=== PATIENT | female | born 1945 | race Caucasian/White ===

== ENCOUNTER 2017-02-11 19:55 | Inpatient (IN) | payer OTHER ==
[~2017-02-11] VITALS: Ht 154.9 cm; Wt 72.7 kg
[2017-02-11 21:28] VITALS: BP 152/79; PULSE 87; TEMP 37.1; O2SAT 99; Ht 154.9 cm; Wt 72.7 kg
[2017-02-11] MEDS ORDERED: SOD PHOSPHATE/SOD BIPHOSPHATE ENEMA 132 ML BTL PR PRN (21:45)
[2017-02-11] MEDS ORDERED: BISACODYL 10 MG SUPP PR PRN (21:45)
[2017-02-11] MEDS ORDERED: ACETAMINOPHEN 325 MG TAB PO PRN (21:45)
[2017-02-11] MEDS ORDERED: POLYETHYLENE (MIRALAX) 17 GM PACK PO PRN (21:45)
[2017-02-11] MEDS ORDERED: NALOXONE HCL 0.4 MG/1 ML VIAL/CARP IV PRN (21:45)
[2017-02-11] MEDS ORDERED: HYDROmorphone INJ 0.5 MG/0.5 ML SYR IV PRN (21:45)
[2017-02-11] MEDS ORDERED: ZOLPIDEM TARTRATE 5 MG TAB PO PRN (21:45)
[2017-02-11] MEDS ORDERED: MAGNESIUM HYDROXIDE SUSP 30 ML UDC PO PRN (21:45)
--- NOTE | 2017-02-11 21:45 | History and Physical ---
History & Physical Date & Time of Service: Feb 11, 2017 at 21:45 Chief Complaint: Left Hip Fracture Primary Care Physician: Vincent Escamilla M.D. History of Present Illness Source: patient, family Mrs Hauser is a 77-year-old female who lives in [place], who was transferred here for treatment of a left femur fracture. Earlier today she was lifting a bucket of corn and tripped and fell onto her left side. She had excruciating pain. She was taken to [facility] requested to be taken to [facility] as there are no orthopedic services there. She reports her pain has somewhat improved after pain medications. She denies any chest pain or shortness of breath with exertion. Her only surgery was a cholecystectomy 15 years ago, she denies any complications with that. Past Medical/Surgical History PMHx: None PSHx: Cholecystectomy Family History No pertinent family history. Social History Smoking Status: Never Smoker Smokeless Tobacco Use: No Alcohol Use: none Drug Use: none Marital Status: Housing status: lives with family Occupational Status: retired Immunizations History of Influenza Vaccine: Unknown History of Tetanus Vaccine?: Unknown History of Pneumococcal: Unknown History of Hepatitis B Vaccine: Unknown Multi-Drug Resistant Organisms History of MDRO: No Allergies Coded Allergies: Cephalexin (Verified Allergy, Intermediate, RASH, 02/11/17) Review of Systems See HPI for pertinent positives & negatives. A total of 10 systems reviewed and were otherwise negative. Physical Exam Vital Signs Date Time Temp Pulse Resp B/P (MAP) Pulse Ox O2 Delivery O2 Flow Rate FiO2 02/11/17 21:28 37.1 87 16 152/79 99 Nasal Cannula 2.0 General Appearance: WD/WN, + mild distress Head: normocephalic, atraumatic Eyes: normal inspection ENT: hearing grossly normal Neck: supple, no JVD Respiratory/Chest: lungs clear, normal breath sounds, no respiratory distress Cardiovascular: regular rate, rhythm, no murmur, normal peripheral pulses Abdomen/GI: normal bowel sounds, non tender, soft Back: no CVA tenderness, no muscle spasm Extremities/Musculoskelatal: normal inspection, no pedal edema Neurologic/Psych: alert, normal mood/affect, normal reflexes, oriented x 3 Skin: no rash Diagnostics Laboratory Results Labs pending at this time Diagnostic Radiology We did not receive any images from [place]. Impression Assessment and Plan 71 yo F with reported L subtrochanteric femur fracture, transferred here for Orthopedic surgery services. L femur fracture - Will obtain repeat Xrays as we did not receive any and do not have access to [place] records - Pre op EKG and CXR - NPO after midnight w/IV fluids - Dilaudid for pain - Dr Garcia consulted. - Pre op abx treatment wtih Vanc due to Keflex causing a rash will avoid cephalosporins Pt has no other home medications. VTE: SCDs Code Status: Full DISPO: Admitted to Med/Surg Attending Addendum: I have physically seen and examined this patient, have supervised the medical residents activities, and agree with the H&P as noted above with the following exceptions: NONE The patient is awake, well-developed and adequately nourished, alert and oriented 3, normocephalic and atraumatic, lying in bed and in no acute distress. HEENT--PERRL, EOMI, mucous membranes and oropharynx dry. Neck--supple, no JVD or bruits, thyroid normal, trachea midline, no adenopathy. Heart--normal S1 and S2, no extra beats, no murmurs, rubs or gallops. Lungs--clear bilaterally with good air movement, no respiratory distress, no accessory muscle use. Abdomen--normal bowel sounds and soft, nontender and nondistended, no hernias or masses, no organomegaly. Extremities--no cyanosis, clubbing or edema. There are good distal pulses b/l. Dermatologic--normal skin turgor, normal color, warm and dry, no abnormal lymph nodes, no rash. Neurologic--cranial nerves II through XII grossly intact. Rheumatologic--pain over left hip area Psychiatric--normal affect. Assessment and Plan: 1. Left subtrochanteric hip fracture--status post mechanical fall. The patient be admitted to the medical surgical floor with consult to orthopedics Dr. Garcia. The family would like to minimize any additional x-rays here, and [facility] did not send films along, so family will get the disc from [facility] and bring her to [facility] tomorrow. Preop EKG and chest x-ray for review. Nothing by mouth after midnight. IV fluids for rehydration. Level of Care Med/Surg Advanced Directives Existing Advance Directive: No Existing Living Will: Yes Existing Power of Buildings And Grounds Superintendent: Yes Resuscitation Status FULL RESUSCITATION VTE Prophylaxis VTE Risk Assessment Done? Y/N: Yes Risk Level: Moderate Given or contraindicated: SCD's Social Service Consult None Apply Resident Tracking Resident Involvement: Resident Care Provided Care Provided: Adult Hospital Medicine
[2017-02-11] MEDS: LACTATED RINGER'S 1000ML 1,000 ML IV SCH (22:14)
[2017-02-11] MEDS: HYDROmorphone INJ 0.5 MG/0.5 ML SYR IV PRN ×2 (22:15→23:52)
[2017-02-11 22:35] LABS: HEMATOCRIT 39.7 % (37-47); MEAN CELL VOLUME 86.1 fL (80-100); MEAN CORPUSCULAR HEMOGLOBIN 27.5 pg (25-34); MEAN PLATELET VOLUME 10.1 fL (7.4-10.4); PLATELET COUNT 252 K/uL (130-400); RED BLOOD COUNT 4.61 M/uL (4.2-5.4); WHITE BLOOD COUNT 11.87 K/uL (4.8-10.8)
[2017-02-11 22:50] LABS: PARTIAL THROMBOPLASTIN RATIO 0.8; PROTHROMBIN TIME (PATIENT) 10.6 SECONDS (9.0-12.0)
[2017-02-11 22:54] LABS: BUN/CREATININE RATIO 20.8 (10-20); CALCIUM 8.6 mg/dl (8.5-10.1); CREATININE 0.99 mg/dl (0.60-1.20); POTASSIUM 4.1 mmol/L (3.5-5.1)
[2017-02-11 22:57] LABS: ALB/GLOB RATIO 1.1 (0.9-2)
[2017-02-11 23:36] VITALS: BP 136/75; PULSE 66; TEMP 36.9; O2SAT 100
[2017-02-12] VITALS (8 sets, daily range): BP systolic 119–151; BP diastolic 54–80; PULSE 50–84; TEMP 36.3–37.1; O2SAT 94–100
[2017-02-12] MEDS: ONDANSETRON INJ 2 MG/ML 2 ML VIAL IV PRN ×2 (00:25→08:43)
[2017-02-12] MEDS: OXYCODONE HCL IR 5 MG TAB (IMMEDIATE RELEASE) PO PRN ×4 (00:25→21:08)
[2017-02-12] MEDS: HYDROmorphone INJ 0.5 MG/0.5 ML SYR IV PRN ×4 (02:09→23:43)
[2017-02-12] MEDS ORDERED: CEFAZOLIN IV 2,000 MG in DEXTROSE 5% 50ML 50 ML IV SCH (06:00)
[2017-02-12] MEDS ORDERED: VANCOMYCIN INJ 1,100 MG in SODIUM CHLORIDE 0.9% 250ML 250 ML IV SCH (06:00)
[2017-02-12] MEDS: LACTATED RINGER'S 1000ML 1,000 ML IV SCH (07:52)
--- NOTE | 2017-02-12 08:32 | CONSULTATION REPORT ---
DATE OF CONSULTATION: 02/12/2017 CHIEF COMPLAINT: Left hip fracture. HISTORY OF PRESENT ILLNESS: Ms. Hauser is a very pleasant 71-year-old female who currently resides in [place]. The patient was at a fruit market yesterday wearing flip flops when she caught her foot and fell. The patient had immediate onset of pain in the left hip. She was unable to get up or ambulate. The patient was taken to [facility] and then transferred to [facility] for a left hip fracture. The patient is normally a fairly healthy lady. She is normally quite active. She denies any prior hip pain or problems. PAST MEDICAL HISTORY: Negative. She denies heart disease, diabetes or DVT. PAST SURGICAL HISTORY: Cholecystectomy. FAMILY HISTORY: Noncontributory. SOCIAL HISTORY: The patient denies alcohol or tobacco use. She lives at home with her daughter in a 1-story home. She is retired but remains active. ALLERGIES: KEFLEX CAUSES A RASH. REVIEW OF SYSTEMS: See HPI. Ten other systems reviewed, all negative. PHYSICAL EXAMINATION: VITAL SIGNS: Height 60 inches, weight 160 pounds, BMI is 30. GENERAL: This is a well-developed, well-nourished female who is alert and oriented x3. She currently appears comfortable lying in bed. HEAD, EYES, EARS, NOSE, AND THROAT: Normocephalic, atraumatic. Mucous membranes are moist and intact. NECK: Supple without lymphadenopathy. HEART: Regular rate and rhythm without murmurs, rubs or gallops. LUNGS: Clear to auscultation without wheezes or rhonchi. ABDOMEN: Soft and nontender. Bowel sounds are equal and active. EXTREMITIES: No ecchymosis, redness or warmth noted to the left hip. She is lying in bed with her hip flexed which seems to be the most comfortable position for her. She is neurovascularly intact. She is able to fully move her toes. She has full dorsi and plantar flexion of the ankle. X-RAY EXAMINATION: AP and lateral views of the pelvis and femur show a subtrochanteric left proximal femur fracture that is significantly displaced. IMPRESSION: Left femur fracture. PLAN: The patient is currently admitted for open reduction internal fixation of the left hip. The patient has been evaluated by the medical service. She is relatively healthy and is cleared for surgery. She is currently n.p.o. and awaiting surgery.
--- NOTE | 2017-02-12 09:03 | Anesthesiology Progress Note ---
Anesthesia Progress Note Date of Service Feb 12, 2017. Progress Notes Ms. Hauser is a healthy 71 year old female with left femur fracture. Allergies to cephalexin. No outpatient medications. No tobacco or EtOH usage. No PMH. PSH significant for jerome 50 years ago without anesthesia problems. EKG shows NSR with sinus arrhythmia and RBBB. Labs WNL. NPO since MN. MP 2 with upper dentures and lower partials. Consented for GA vs SAB with sedation. Patient would like to speak to the surgeon prior to deciding which anesthetic route she wants to take. All questions answered.
[2017-02-12] MEDS ORDERED: MIDAZOLAM HCL 1 MG/ML 2ML VIAL ONE (12:27)
[2017-02-12] MEDS ORDERED: FENTANYL CITRATE INJ 50 MCG/1 ML 2 ML VIAL ONE (12:27)
--- NOTE | 2017-02-12 12:43 | History & Physical Bridge Note ---
H&P Re-Evaluation Bridge Note: I have examined the patient, reviewed the History & Physical and in the interval since the performance of the History & Physical I have noted the following changes of clinical significance: No changes noted
[2017-02-12] MEDS ORDERED: FENTANYL CITRATE INJ 50 MCG/1 ML 2 ML VIAL IV PRN (13:30)
[2017-02-12] MEDS ORDERED: EpHEDrine SULFATE INJ 50 MG/ML AMP IV PRN (13:30)
[2017-02-12] MEDS ORDERED: PROMETHAZINE HCL INJ 6.25 MG in SODIUM CHLORIDE 0.9% 50ML 50 ML IV PRN (13:30)
[2017-02-12] MEDS ORDERED: HYDROmorphone INJ 1 MG/ML SYR IV PRN (13:30)
[2017-02-12] MEDS ORDERED: ATROPINE SULFATE 0.1 MG/ML 5ML SYR IV PRN (13:30)
[2017-02-12] MEDS ORDERED: ONDANSETRON INJ 2 MG/ML 2 ML VIAL IV PRN ×2 (13:30→15:30)
--- NOTE | 2017-02-12 14:59 | [facility] Post Operative Brief Note ---
Immediate Operative Summary Operative Date Feb 12, 2017. Pre-Operative Diagnosis Left Subtrochanteric Femur Fracture Post-Operative Diagnosis Left Subtrochanteric Femur Fracture Procedure(s) Performed Left Intramedullary Guy Femur Surgeon Dr Hatch Rn Diabetes Surgeon(s) Dinh Duran Estimated Blood Loss 50cc Findings Fracture c/w fpc bisphosphonate use Specimens None as per Surgeon Complication(s) None Disposition Recovery Room / PACU
[2017-02-12] MEDS ORDERED: ONDANSETRON INJ 2 MG/ML 2 ML VIAL ONE (15:27)
[2017-02-12] MEDS ORDERED: NEOSTIGMINE METHYLSULFATE 5 MG/5 ML SYR ONE (15:27)
[2017-02-12] MEDS ORDERED: LIDOCAINE HCL 2% 2 ML VIAL (20MG/ML) ONE (15:27)
[2017-02-12] MEDS ORDERED: PROPOFOL IV EMULSION 10 MG/ML 20 ML VIAL IV ONE (15:27)
[2017-02-12] MEDS ORDERED: DEXAMETHASONE SOD INJ 4 MG/ML VIAL ONE (15:27)
[2017-02-12] MEDS ORDERED: PHENYLEPHRINE 100MCG/ML 5ML SYR ONE (15:27)
[2017-02-12] MEDS ORDERED: GLYCOPYRROLATE INJ 0.2 MG/ML VIAL ONE (15:27)
--- NOTE | 2017-02-12 15:27 | DIAGNOSTIC IMAGING REPORT ---
LEFT HIP OR FILMS CLINICAL HISTORY: Fracture COMPARISON STUDY: Outside radiograph dated 02/11/2017 FLUOROSCOPY TIME: 2 to 58 seconds.. NUMBER OF FLUOROSCOPIC IMAGES: 6 FINDINGS: There is a trochanteric nail and interlocking intramedullary armaan. This traverses a subtrochanteric fracture which demonstrates approximately one quarter shaft width of displacement. IMPRESSION: Internally fixated subtrochanteric left femoral fracture Electronically signed by: Leonard Choudhury M.D. 02/12/2017 3:26 PM Dictated Date/Time: 02/12/2017 3:24 PM
[2017-02-12] MEDS ORDERED: BISACODYL 10 MG SUPP PR PRN (15:30)
[2017-02-12] MEDS ORDERED: MAGNESIUM HYDROXIDE SUSP 30 ML UDC PO PRN (15:30)
[2017-02-12] MEDS ORDERED: COUGH DROP (SUGAR FREE) LOZ 24 LOZ/1 BOX PO PRN (15:30)
--- NOTE | 2017-02-12 15:31 | OPERATIVE REPORT ---
DATE OF OPERATION: 02/12/2017 PREOPERATIVE DIAGNOSIS: Subtrochanteric femur fracture, left. POSTOPERATIVE DIAGNOSIS: Subtrochanteric femur fracture, left. PROCEDURE: Closed locked intramedullary nailing, left subtrochanteric femur fracture. SURGEON: Dr. Hatch. HEALTHCARE ACCOUNT MANAGER: Dinh Duran PA-C. ANESTHESIA: General. COMPLICATIONS: None. DESCRIPTION OF PROCEDURE: Following induction of adequate general anesthesia, the patient was transferred to the fracture table and the patient was positioned. The fracture was reduced using longitudinal traction. The left hip was then prepped and draped in usual sterile manner. Longitudinal incision was made from the greater trochanter proximally. Subcutaneous tissue was sharply dissected. Electrocautery was used for hemostasis. Fascia was incised and digital dissection was taken down to the tip of the trochanter. A drill tipped guidewire was placed manually over the tip of the trochanter and was inserted intramedullary, care being taken to ensure intramedullary placement in both the AP and lateral planes. This being confirmed this was overdrilled using a 17 mm entry drill and the beaded tipped guidewire was placed traversing the fracture. Sequential reamings were taken up to a size 12 and the beaded tipped guidewire was measured and a 360 mm nail was chosen as the size to be used. This was impacted into position and proximal locking was carried out using a helical blade that was 90 mm in length. This was locked proximally. The beaded tipped guidewire was removed prior to complete insertion of the nail. Next rotation was estimated and held in position and distal interlocking was carried out using a single 40 mm cortical screw. Check x-rays revealed proper placement of all hardware. The wounds were irrigated and closed using 0 Dexon for fascia, 2-0 Dexon for subcutaneous tissue and perlita. Sterile dressing of Adaptic, 4x4s, ABDs and foam tape was applied. Mr. Duran was essential through all portions of the case including positioning, reduction, surgical garment assembly supervisor, wound closure and dressing application. I attest to the content of the Intraoperative Record and any orders documented therein. Any exception s are noted below.
--- NOTE | 2017-02-12 15:59 | Progress Note ---
Subjective Date of Service: Feb 12, 2017. Subjective Pt evaluation today including: conversation w/ patient, conversation w/ family , physical exam, lab review, review of inpatient medication list Pain: no pain if she doesn't move PO Intake: NPO for surgery no medical history, patient resting comfortably this AM waiting for surgery Review of Systems Musculoskeletal: + joint pain (left hip pain with movement) All Other Systems: Reviewed and Negative Medications Current Inpatient Medications Medications (Trade) Dose Ordered Sig/Savage Route Start Time Stop Time Status Last Admin Dose Admin Zolpidem Tartrate (Ambien Tab) 5 mg HSZ PRN PO 02/11/17 21:45 03/13/17 21:44 Ondansetron HCl (Zofran Inj) 4 mg Q6H PRN IV 02/11/17 21:45 03/13/17 21:44 02/12/17 08:43 4 MG Acetaminophen (Tylenol Tab) 650 mg Q6H PRN PO 02/11/17 21:45 03/13/17 21:44 Oxycodone HCl (Roxicodone Immediate Rel Tab) 5 mg Q4H PRN PO 02/11/17 21:45 02/25/17 21:44 Oxycodone HCl (Roxicodone Immediate Rel Tab) 10 mg Q4H PRN PO 02/11/17 21:45 02/25/17 21:44 02/12/17 08:36 10 MG Naloxone HCl (Narcan Inj) 0.1 mg PRN PRN IV 02/11/17 21:45 03/13/17 21:44 Senna/Docusate Sodium (Senokot S Tab) 2 tab HS PO 02/12/17 21:00 03/14/17 20:59 Polyethylene (Miralax Powder Packet) 17 gm DAILY PRN PO 02/11/17 21:45 03/13/17 21:44 Magnesium Hydroxide (Milk Of Magnesia Susp) 30 ml DAILY PRN PO 02/11/17 21:45 03/13/17 21:44 Bisacodyl (Dulcolax Supp) 10 mg DAILY PRN SC 02/11/17 21:45 03/13/17 21:44 Sodium Biphosphate/ Sodium Phosphate (Fleet Enema) 132 ml PRN PRN SC 02/11/17 21:45 Vancomycin HCl 1100 mg/Sodium Chloride 272 ml @ 125 mls/hr PREOP IV 02/12/17 06:00 02/12/17 18:00 02/12/17 12:45 125 MLS/HR Hydromorphone HCl (Dilaudid Inj) 0.5 mg Q3H PRN IV 02/12/17 03:05 02/25/17 21:44 02/12/17 05:32 0.5 MG Fentanyl Citrate (Fentanyl Inj) 25 mcg Q5M PRN IV 02/12/17 13:30 02/12/17 18:30 Hydromorphone HCl (Dilaudid Inj) 0.5 mg Q5M PRN IV 02/12/17 13:30 02/12/17 18:30 Ondansetron HCl (Zofran Inj) 4 mg ONE PRN IV 02/12/17 13:30 02/12/17 18:30 Promethazine HCl 6.25 mg/Sodium Chloride 50.25 ml @ 202 mls/hr ONE PRN IV 02/12/17 13:30 02/12/17 18:30 Ephedrine Sulfate (EpHEDrine SULFATE INJ) 5 mg Q5M PRN IV 02/12/17 13:30 02/12/17 18:30 Atropine Sulfate (Atropine Sulfate 0.1MG/Ml Inj) 0.5 mg Q1M PRN IV 02/12/17 13:30 02/12/17 18:30 Enoxaparin Sodium (Lovenox Inj) 40 mg HS SQ 02/12/17 21:00 03/14/17 20:59 Dextrose/Sodium Chloride 1,000 ml @ 100 mls/hr Q10H IV 02/12/17 15:29 03/14/17 15:28 Vancomycin HCl 1100 mg/Sodium Chloride 272 ml @ 200 mls/hr Q12H IV 02/13/17 00:00 02/13/17 01:22 Menthol (Nice Bela) 1 bela Q2H PRN PO 02/12/17 15:30 03/14/17 15:29 Bisacodyl (Dulcolax Supp) 10 mg DAILY PRN SC 02/12/17 15:30 03/14/17 15:29 Objective Vital Signs Date Time Temp Pulse Resp B/P (MAP) Pulse Ox O2 Delivery O2 Flow Rate FiO2 02/12/17 15:16 36.2 60 16 130/66 99 Mask 7 02/12/17 07:55 36.5 65 18 151/80 (103) 99 Nasal Cannula 1.5 02/12/17 07:50 Room Air 02/12/17 04:14 36.6 66 16 136/74 (94) 100 Nasal Cannula 2.0 02/12/17 00:00 Nasal Cannula 2.0 02/11/17 23:36 36.9 66 16 136/75 (95) 100 Nasal Cannula 2.0 02/11/17 21:28 37.1 87 16 152/79 99 Nasal Cannula 2.0 Physical Exam General Appearance: WD/WN, no apparent distress Respiratory/Chest: chest non-tender, lungs clear, normal breath sounds, no respiratory distress, no accessory muscle use Cardiovascular: regular rate, rhythm, no edema, no gallop, no JVD, no murmur Abdomen: normal bowel sounds, non tender, soft, no organomegaly Extremities: no pedal edema, no calf tenderness, normal capillary refill, pelvis stable, + pertinent finding (left leg short and externally rotated) Neurologic/Psychiatric: solar energy sales specialist II-XII nml as tested, no motor/sensory deficits, alert, normal mood/affect, oriented x 3 Skin: normal color, warm/dry, no rash Laboratory Results Last 24 Hours Test 02/11/17 22:07 White Blood Count 11.87 K/uL Red Blood Count 4.61 M/uL Hemoglobin 12.7 g/dL Hematocrit 39.7 % Mean Corpuscular Volume 86.1 fL Mean Corpuscular Hemoglobin 27.5 pg Mean Corpuscular Hemoglobin Concent 32.0 g/dl RDW Standard Deviation 42.3 fL RDW Coefficient of Variation 13.5 % Platelet Count 252 K/uL Mean Platelet Volume 10.1 fL Prothrombin Time 10.6 SECONDS Prothromb Time International Ratio 1.0 Activated Partial Thromboplast Time 21.0 SECONDS Partial Thromboplastin Ratio 0.8 Sodium Level 138 mmol/L Potassium Level 4.1 mmol/L Chloride Level 106 mmol/L Carbon Dioxide Level 27 mmol/L Anion Gap 5.0 mmol/L Blood Urea Nitrogen 21 mg/dl Creatinine 0.99 mg/dl Est Creatinine Clear Calc Drug Dose 46.8 ml/min Estimated GFR () 66.0 Estimated GFR (Non- 56.9 BUN/Creatinine Ratio 20.8 Random Glucose 129 mg/dl Calcium Level 8.6 mg/dl Total Bilirubin 0.4 mg/dl Aspartate Amino Transf (AST/SGOT) 147 U/L Alanine Aminotransferase (ALT/SGPT) 97 U/L Alkaline Phosphatase 82 U/L Total Protein 6.8 gm/dl Albumin 3.6 gm/dl Globulin 3.2 gm/dl Albumin/Globulin Ratio 1.1 Assessment and Plan 71 yo F with reported L subtrochanteric femur fracture, transferred here for Orthopedic surgery services. L femur fracture - intermedullary nail placed on 02/12, tolerated well - EKG with RBBB - allow to eat after surgery - Dilaudid for pain check labs in the AM DVT prophylaxis: SCD
--- NOTE | 2017-02-12 16:07 | Anesthesiology Progress Note ---
Anesthesia Post Op Note Date & Time Feb 12, 2017 at 16:07 Vital Signs Pain Intensity: 1 Vital Signs Past 12 Hours Date Time Temp Pulse Resp B/P (MAP) Pulse Ox O2 Delivery O2 Flow Rate FiO2 02/12/17 15:58 36.4 02/12/17 15:56 49 16 02/12/17 15:56 50 16 129/63 100 02/12/17 15:51 49 16 146/55 100 02/12/17 15:51 49 16 02/12/17 15:46 60 19 140/60 100 02/12/17 15:46 57 19 02/12/17 15:41 51 16 02/12/17 15:41 51 16 127/61 100 02/12/17 15:37 123/62 02/12/17 15:36 55 19 100 02/12/17 15:36 57 19 02/12/17 15:32 135/54 02/12/17 15:31 51 13 100 02/12/17 15:31 51 13 02/12/17 15:30 Nasal Cannula 4 02/12/17 15:26 51 17 100 02/12/17 15:26 51 17 02/12/17 15:25 119/62 02/12/17 15:16 36.2 60 16 130/66 99 Mask 7 02/12/17 07:55 36.5 65 18 151/80 (103) 99 Nasal Cannula 1.5 02/12/17 07:50 Room Air 02/12/17 04:14 36.6 66 16 136/74 (94) 100 Nasal Cannula 2.0 Notes Mental Status: alert / awake / arousable, participated in evaluation Pt Amnestic to Procedure: Yes Nausea / Vomiting: adequately controlled Pain: adequately controlled Airway Patency, RR, SpO2: stable & adequate BP & HR: stable & adequate Hydration State: stable & adequate Anesthetic Complications: no major complications apparent
[2017-02-12] MEDS: D5W AND NSS 1,000 ML IV SCH (16:19)
[2017-02-12] MEDS ORDERED: DOCUSATE SODIUM/SENNA 50/8.6MG TAB PO SCH (21:00)
[2017-02-12] MEDS: DOCUSATE SODIUM/SENNA 50/8.6MG TAB PO SCH (21:04)
[2017-02-12] MEDS: ENOXAPARIN 40 MG/0.4 ML SYR SQ SCH (21:11)
[2017-02-13] MEDS ORDERED: VANCOMYCIN INJ 1,100 MG in SODIUM CHLORIDE 0.9% 250ML 250 ML IV SCH ×2
[2017-02-13] MEDS: D5W AND NSS 1,000 ML IV SCH (02:02)
[2017-02-13 03:15] VITALS: BP 106/57; PULSE 68; TEMP 37; O2SAT 96
[2017-02-13] MEDS: HYDROmorphone INJ 0.5 MG/0.5 ML SYR IV PRN (06:07)
[2017-02-13 06:12] LABS: HEMATOCRIT 34.6 % (37-47); MEAN CELL VOLUME 88.5 fL (80-100); MEAN CORPUSCULAR HEMOGLOBIN 29.2 pg (25-34); MEAN CORPUSCULAR HGB CONC 32.9 g/dl (32-36); PLATELET COUNT 267 K/uL (130-400); RED BLOOD COUNT 3.91 M/uL (4.2-5.4); WHITE BLOOD COUNT 9.34 K/uL (4.8-10.8)
[2017-02-13 06:59] LABS: BUN/CREATININE RATIO 9.9 (10-20); CALCIUM 8.4 mg/dl (8.5-10.1); CREATININE 1.1 mg/dl (0.60-1.20); POTASSIUM 3.9 mmol/L (3.5-5.1)
[2017-02-13] MEDS ORDERED: NURSING DECISION MEDICATION ORDER SCH (07:00)
[2017-02-13 07:58] VITALS: BP 104/66; PULSE 65; TEMP 36.7; O2SAT 96
--- NOTE | 2017-02-13 08:22 | Anesthesiology Progress Note ---
Anesthesia Post Op Note Date & Time Feb 13, 2017 at 08:22 Vital Signs Vital Signs Past 12 Hours Date Time Temp Pulse Resp B/P (MAP) Pulse Ox O2 Delivery O2 Flow Rate FiO2 02/13/17 07:58 36.7 65 16 104/66 (79) 96 Room Air 02/13/17 07:10 Room Air 02/13/17 03:15 37.0 68 16 106/57 (73) 96 Room Air 02/12/17 23:33 Room Air 02/12/17 23:21 36.8 80 16 119/68 (85) 96 Room Air Notes Mental Status: alert / awake / arousable, participated in evaluation Pt Amnestic to Procedure: Yes Nausea / Vomiting: adequately controlled Pain: adequately controlled Airway Patency, RR, SpO2: stable & adequate BP & HR: stable & adequate Hydration State: stable & adequate Anesthetic Complications: no major complications apparent
[2017-02-13 10:06] VITALS: O2SAT 96
[2017-02-13 11:50] VITALS: BP 138/82; PULSE 76; TEMP 36.7; O2SAT 98
[2017-02-13] MEDS: OXYCODONE HCL IR 5 MG TAB (IMMEDIATE RELEASE) PO PRN ×2 (12:03→21:46)
[2017-02-13] MEDS ORDERED: LORAZEPAM INJ 0.5 MG in SYRINGE 0.25 ML IV PRN (12:30)
--- NOTE | 2017-02-13 12:36 | Orthopedic Progress Note ---
Orthopedic Progress Note Date of Service Feb 13, 2017. Subjective Post OP Day: 1 Reports: feeling well, Denies: chest pain, SOB, nausea / vomiting, light headedness, calf pain Additional Notes: Still having some spasms off and on in the operative hip but not as much as before. Pain less today than yesterday. Objective calves soft nontender, N/V intact, A&O x3, toes mobile Most proximal dressing with very mild drainage. Other dressings c/d/i. Date Time Temp Pulse Resp B/P (MAP) Pulse Ox O2 Delivery O2 Flow Rate FiO2 02/13/17 11:50 36.7 76 16 138/82 (100) 98 Room Air 02/13/17 10:06 96 Room Air 02/13/17 07:58 36.7 65 16 104/66 (79) 96 Room Air 02/13/17 07:10 Room Air 02/13/17 03:15 37.0 68 16 106/57 (73) 96 Room Air 02/12/17 23:33 Room Air 02/12/17 23:21 36.8 80 16 119/68 (85) 96 Room Air 02/12/17 19:35 37.1 74 18 127/76 (93) 94 Room Air 02/12/17 18:20 36.8 84 20 132/75 (94) 99 Nasal Cannula 2.0 02/12/17 17:23 36.3 54 15 119/54 (75) 100 Room Air 3.0 02/12/17 16:47 36.4 51 16 131/74 (93) 100 Nasal Cannula 3.0 02/12/17 16:15 Nasal Cannula 2.0 02/12/17 16:15 36.5 50 20 129/75 (93) 99 Nasal Cannula 2.0 02/12/17 16:15 99 Nasal Cannula 2.0 02/12/17 15:58 36.4 02/12/17 15:56 49 16 02/12/17 15:56 50 16 129/63 100 02/12/17 15:51 49 16 146/55 100 02/12/17 15:51 49 16 02/12/17 15:46 60 19 140/60 100 02/12/17 15:46 57 19 02/12/17 15:41 51 16 02/12/17 15:41 51 16 127/61 100 02/12/17 15:37 123/62 02/12/17 15:36 55 19 100 02/12/17 15:36 57 19 02/12/17 15:32 135/54 02/12/17 15:31 51 13 100 02/12/17 15:31 51 13 02/12/17 15:30 Nasal Cannula 4 02/12/17 15:26 51 17 100 02/12/17 15:26 51 17 02/12/17 15:25 119/62 02/12/17 15:16 36.2 60 16 130/66 99 Mask 7 Laboratory Results 24 Hours: Test 02/13/17 06:02 Hematocrit 34.6 % Hemoglobin 11.4 g/dL Assessment & Plan Assessment: POD 1 s/p Left TFN Plan: Continue PT/OT Planning for [facility] if approved by insurance. Inhouse Planning Pain Management: Dilaudid, Oxy IR DVT Prophylaxis: TEDs, SCDs, Lovenox Discharge Planning Discharge Planning: rehab hospital
--- NOTE | 2017-02-13 12:40 | Consultant Recommendations ---
Associate Dean Recommendations Date of Service Feb 13, 2017. Associate Dean Recommendations U DISCHARGE INSTRUCTIONS: Proximal Femur Fracture SELF CARE INSTRUCTIONS: A. You are to ambulate with a walker or crutches for approximately 6 weeks. B. You are TOE TOUCH WEIGHT BEARING on your operative lower extremity for at least 6 weeks. C. Wear low heeled shoes with non-slip soles D. Be sure that your floors are free of things that could trip you throw rugs, electrical cords, and small objects. Avoid wet and waxed floors, especially with crutches/walker/cane. E. Try to walk several times a day with rest periods between. F. You may shower 48 hours after surgery and get the incision area wet, but DO NOT soak or submerge incision area in water. (No baths, swimming pools, hot tubs ) G. You may change your dressing daily if you have mild to moderate drainage. Change the dressing every other day if minimal drainage. Once the wound is dry , you may leave to the open air. H. Do NOT apply soap or any ointment/lotions directly over incision. I. You may use ice as needed to operative site. SPECIAL CARE INSTRUCTIONS: VERY IMPORTANT TO READ AND REVIEW A. You may be at risk for phlebitis or blood clots. a. Wear surgical stockings (BRITTON hose) for 2 weeks after surgery to improve circulation and reduce swelling. b. Take LOVENOX 40mg SQ daily for 2 - 4 weeks or as directed. This is your blood thinner. c. If you are on Coumadin- you will have daily/weekly blood work to monitor your levels. This will be done by either your family physician/ cashier courtesy booth (if you are on Coumadin chronically) versus your orthopedic surgeon. Expect a phone call the day of or the day after your blood work is drawn to adjust your dose accordingly. B. There are a few signs you need to watch for after you are home. Call [facility] at [phone] if you experience any of the following: a. If you have a temperature of 101 degrees or higher. b. Sudden increase in pain in your hip not relieved by rest or pain medication. c. Any fluid or drainage from the incision; redness of the incision. d. Shortness of breath or chest pain. C. Call your physician if: a. Temperature is greater than 101 degrees (F). b. Pain is not relieved by prescribed pain medications. c. Increase drainage or redness from incision. d. Unanswered questions or concerns. D. Pain Medication: a. You will be prescribed pain medication upon discharge that should last till your first post-operative appointment. b. If you experience nausea and/or skin rash, discontinue this medication and contact our office for an alternative medication. c. Caution- narcotic pain medication can cause constipation. FOLLOW UP VISIT: Please call [facility] at [phone] to schedule a follow up appointment 10-14 days from the date of your surgery date.
--- NOTE | 2017-02-13 13:19 | Progress Note ---
Subjective Date of Service: Feb 13, 2017. Subjective Pt evaluation today including: conversation w/ patient, conversation w/ family (daughter), physical exam, lab review, review of inpatient medication list Pain: controlled, only 4 out of 10 PO Intake: adequate Voiding: no voiding problems patient recovering well from surgery ambulating slowly with walker, therapy recommends rehab labs reviewed, stable vitals stable d/w CM, referrals made Review of Systems Constitutional: + weakness, + fatigue Musculoskeletal: + joint pain (left hip) All Other Systems: Reviewed and Negative Medications Current Inpatient Medications Medications (Trade) Dose Ordered Sig/Savage Route Start Time Stop Time Status Last Admin Dose Admin Zolpidem Tartrate (Ambien Tab) 5 mg HSZ PRN PO 02/11/17 21:45 03/13/17 21:44 Ondansetron HCl (Zofran Inj) 4 mg Q6H PRN IV 02/11/17 21:45 03/13/17 21:44 02/12/17 08:43 4 MG Acetaminophen (Tylenol Tab) 650 mg Q6H PRN PO 02/11/17 21:45 03/13/17 21:44 Oxycodone HCl (Roxicodone Immediate Rel Tab) 5 mg Q4H PRN PO 02/11/17 21:45 02/25/17 21:44 02/12/17 21:08 5 MG Oxycodone HCl (Roxicodone Immediate Rel Tab) 10 mg Q4H PRN PO 02/11/17 21:45 02/25/17 21:44 02/13/17 12:03 10 MG Naloxone HCl (Narcan Inj) 0.1 mg PRN PRN IV 02/11/17 21:45 03/13/17 21:44 Senna/Docusate Sodium (Senokot S Tab) 2 tab HS PO 02/12/17 21:00 03/14/17 20:59 02/12/17 21:04 2 TAB Polyethylene (Miralax Powder Packet) 17 gm DAILY PRN PO 02/11/17 21:45 03/13/17 21:44 Magnesium Hydroxide (Milk Of Magnesia Susp) 30 ml DAILY PRN PO 02/11/17 21:45 03/13/17 21:44 Bisacodyl (Dulcolax Supp) 10 mg DAILY PRN [place] 02/11/17 21:45 03/13/17 21:44 Sodium Biphosphate/ Sodium Phosphate (Fleet Enema) 132 ml PRN PRN [place] 02/11/17 21:45 Hydromorphone HCl (Dilaudid Inj) 0.5 mg Q3H PRN IV 02/12/17 03:05 02/25/17 21:44 02/13/17 06:07 0.5 MG Enoxaparin Sodium (Lovenox Inj) 40 mg HS SQ 02/12/17 21:00 03/14/17 20:59 02/12/17 21:11 40 MG Menthol (Nice Juliette) 1 juliette Q2H PRN PO 02/12/17 15:30 03/14/17 15:29 02/12/17 23:42 1 JULIETTE Bisacodyl (Dulcolax Supp) 10 mg DAILY PRN [place] 02/12/17 15:30 03/14/17 15:29 Lorazepam 0.5 mg/ Syringe 0.5 ml @ 0.5 mls/min Q8H PRN IV 02/13/17 12:30 03/15/17 12:29 Objective Vital Signs Date Time Temp Pulse Resp B/P (MAP) Pulse Ox O2 Delivery O2 Flow Rate FiO2 02/13/17 11:50 36.7 76 16 138/82 (100) 98 Room Air 02/13/17 10:06 96 Room Air 02/13/17 07:58 36.7 65 16 104/66 (79) 96 Room Air 02/13/17 07:10 Room Air 02/13/17 03:15 37.0 68 16 106/57 (73) 96 Room Air 02/12/17 23:33 Room Air 02/12/17 23:21 36.8 80 16 119/68 (85) 96 Room Air 02/12/17 19:35 37.1 74 18 127/76 (93) 94 Room Air 02/12/17 18:20 36.8 84 20 132/75 (94) 99 Nasal Cannula 2.0 02/12/17 17:23 36.3 54 15 119/54 (75) 100 Room Air 3.0 02/12/17 16:47 36.4 51 16 131/74 (93) 100 Nasal Cannula 3.0 02/12/17 16:15 Nasal Cannula 2.0 02/12/17 16:15 36.5 50 20 129/75 (93) 99 Nasal Cannula 2.0 02/12/17 16:15 99 Nasal Cannula 2.0 02/12/17 15:58 36.4 02/12/17 15:56 49 16 02/12/17 15:56 50 16 129/63 100 02/12/17 15:51 49 16 146/55 100 02/12/17 15:51 49 16 02/12/17 15:46 60 19 140/60 100 02/12/17 15:46 57 19 02/12/17 15:41 51 16 02/12/17 15:41 51 16 127/61 100 02/12/17 15:37 123/62 02/12/17 15:36 55 19 100 02/12/17 15:36 57 19 02/12/17 15:32 135/54 02/12/17 15:31 51 13 100 02/12/17 15:31 51 13 02/12/17 15:30 Nasal Cannula 4 02/12/17 15:26 51 17 100 02/12/17 15:26 51 17 02/12/17 15:25 119/62 02/12/17 15:16 36.2 60 16 130/66 99 Mask 7 Physical Exam General Appearance: WD/WN, no apparent distress Neck: supple, no adenopathy, no JVD, trachea midline Respiratory/Chest: chest non-tender, lungs clear, normal breath sounds, no respiratory distress, no accessory muscle use Cardiovascular: regular rate, rhythm, no edema, no gallop, no JVD, no murmur Abdomen: normal bowel sounds, non tender, soft, no organomegaly Extremities: no pedal edema, no calf tenderness, normal capillary refill, pelvis stable, + pertinent finding (left hip tender, decreased ROM) 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, no motor/sensory deficits, alert, normal mood/affect, oriented x 3 Skin: normal color, warm/dry, no rash Lymphatic: no adenopathy Laboratory Results Last 24 Hours Test 02/13/17 06:02 White Blood Count 9.34 K/uL Red Blood Count 3.91 M/uL Hemoglobin 11.4 g/dL Hematocrit 34.6 % Mean Corpuscular Volume 88.5 fL Mean Corpuscular Hemoglobin 29.2 pg Mean Corpuscular Hemoglobin Concent 32.9 g/dl RDW Standard Deviation 44.2 fL RDW Coefficient of Variation 13.6 % Platelet Count 267 K/uL Mean Platelet Volume 9.0 fL Sodium Level 141 mmol/L Potassium Level 3.9 mmol/L Chloride Level 107 mmol/L Carbon Dioxide Level 27 mmol/L Anion Gap 7.0 mmol/L Blood Urea Nitrogen 11 mg/dl Creatinine 1.10 mg/dl Est Creatinine Clear Calc Drug Dose 42.1 ml/min Estimated GFR () 58.1 Estimated GFR (Non- 50.1 BUN/Creatinine Ratio 9.9 Random Glucose 112 mg/dl Calcium Level 8.4 mg/dl Assessment and Plan 71 yo F with reported L subtrochanteric femur fracture, transferred here for Orthopedic surgery services. L femur fracture - intermedullary nail placed on 8/10, POD #1, pain controlled - plan for rehab, referrals made to [facility] and [facility] - will need insurance auth no medical history, labs and vitals stable eating well, + flatus DVT prophylaxis: Lovenox, will need 2-4 weeks
[2017-02-13 15:09] VITALS: BP 122/76; PULSE 78; TEMP 37.2; O2SAT 97
[2017-02-13] MEDS: DOCUSATE SODIUM/SENNA 50/8.6MG TAB PO SCH (21:36)
[2017-02-13] MEDS: ENOXAPARIN 40 MG/0.4 ML SYR SQ SCH (21:37)
[2017-02-13 23:36] VITALS: BP 110/70; PULSE 83; TEMP 37.2; O2SAT 96
[2017-02-14 06:44] VITALS: BP 121/76; PULSE 74; TEMP 37.1; O2SAT 96
[2017-02-14] MEDS: OXYCODONE HCL IR 5 MG TAB (IMMEDIATE RELEASE) PO PRN ×6 (07:17→19:55)
--- NOTE | 2017-02-14 08:21 | Orthopedic Progress Note ---
Orthopedic Progress Note Date of Service Feb 14, 2017. Subjective Post OP Day: 2 Reports: feeling well, pain controlled w PO medications, Denies: complaints, chest pain, SOB, nausea / vomiting, light headedness, calf pain Objective calves soft nontender, N/V intact, capillary refill less than 2 sec., incision C /D/I, A&O x3, toes mobile Date Time Temp Pulse Resp B/P (MAP) Pulse Ox O2 Delivery O2 Flow Rate FiO2 02/14/17 07:54 Room Air 02/14/17 06:44 37.1 74 18 121/76 (91) 96 Room Air 02/13/17 23:36 37.2 83 18 110/70 (83) 96 Room Air 02/13/17 19:40 Room Air 02/13/17 15:09 37.2 78 16 122/76 (91) 97 Room Air 02/13/17 11:50 36.7 76 16 138/82 (100) 98 Room Air 02/13/17 10:06 96 Room Air Assessment & Plan Assessment: POD 2 s/p Closed locked intramedullary nailing, left subtrochanteric femur fracture. Plan: Continue PT/OT Planning for [facility] , has been accepted just waiting on insurance auth [facility] Orthopedically stable, will sign off at this point. should follow up in the office in 2 weeks, please contact with any other questions or concerns during hospital stay. Discharge Planning Discharge Planning: rehab hospital
--- NOTE | 2017-02-14 10:59 | Hospitalist Progress Note ---
Hospitalist Progress Note Date of Service Feb 14, 2017. Subjective Pt evaluation today including: conversation w/ patient, physical exam, chart review, lab review, review of inpatient medication list Voiding: no voiding problems, no incontinence Patient feeling well. Eating and drinking OK. Pain well controlled. +flatus/BM postop. Working with PT/OT and continue to progress. Patient denies any fever, chills, sweats, lightheadedness, dizziness, vision changes, CP, palpitations, edema, SOB, wheezing, cough, abdominal pain, nausea, vomiting, diarrhea, urinary symptoms, melena, numbness/tingling, weakness, anxiety/depression, active bleeding, or new skin discoloration/changes. Medications Current Inpatient Medications Medications (Trade) Dose Ordered Sig/Savage Route Start Time Stop Time Status Last Admin Dose Admin Zolpidem Tartrate (Ambien Tab) 5 mg HSZ PRN PO 02/11/17 21:45 03/13/17 21:44 Ondansetron HCl (Zofran Inj) 4 mg Q6H PRN IV 02/11/17 21:45 03/13/17 21:44 02/12/17 08:43 4 MG Acetaminophen (Tylenol Tab) 650 mg Q6H PRN PO 02/11/17 21:45 03/13/17 21:44 Oxycodone HCl (Roxicodone Immediate Rel Tab) 5 mg Q4H PRN PO 02/11/17 21:45 02/25/17 21:44 02/12/17 21:08 5 MG Oxycodone HCl (Roxicodone Immediate Rel Tab) 10 mg Q4H PRN PO 02/11/17 21:45 02/25/17 21:44 02/14/17 07:19 10 MG Naloxone HCl (Narcan Inj) 0.1 mg PRN PRN IV 02/11/17 21:45 03/13/17 21:44 Senna/Docusate Sodium (Senokot S Tab) 2 tab HS PO 02/12/17 21:00 03/14/17 20:59 02/13/17 21:36 2 TAB Polyethylene (Miralax Powder Packet) 17 gm DAILY PRN PO 02/11/17 21:45 03/13/17 21:44 Magnesium Hydroxide (Milk Of Magnesia Susp) 30 ml DAILY PRN PO 02/11/17 21:45 03/13/17 21:44 Bisacodyl (Dulcolax Supp) 10 mg DAILY PRN [place] 02/11/17 21:45 03/13/17 21:44 Sodium Biphosphate/ Sodium Phosphate (Fleet Enema) 132 ml PRN PRN [place] 02/11/17 21:45 Hydromorphone HCl (Dilaudid Inj) 0.5 mg Q3H PRN IV 02/12/17 03:05 02/25/17 21:44 02/13/17 06:07 0.5 MG Enoxaparin Sodium (Lovenox Inj) 40 mg HS SQ 02/12/17 21:00 03/14/17 20:59 02/13/17 21:37 40 MG Menthol (Nice Juliette) 1 juliette Q2H PRN PO 02/12/17 15:30 03/14/17 15:29 02/12/17 23:42 1 JULIETTE Bisacodyl (Dulcolax Supp) 10 mg DAILY PRN [place] 02/12/17 15:30 03/14/17 15:29 Lorazepam 0.5 mg/ Syringe 0.5 ml @ 0.5 mls/min Q8H PRN IV 02/13/17 12:30 03/15/17 12:29 02/13/17 15:44 0.5 MLS/MIN Objective Vital Signs Date Time Temp Pulse Resp B/P (MAP) Pulse Ox O2 Delivery O2 Flow Rate FiO2 02/14/17 07:54 Room Air 02/14/17 06:44 37.1 74 18 121/76 (91) 96 Room Air 02/13/17 23:36 37.2 83 18 110/70 (83) 96 Room Air 02/13/17 19:40 Room Air 02/13/17 15:09 37.2 78 16 122/76 (91) 97 Room Air 02/13/17 11:50 36.7 76 16 138/82 (100) 98 Room Air Physical Exam General Appearance: no apparent distress Eyes: normal inspection, PERRL ENT: hearing grossly normal Neck: supple Respiratory/Chest: lungs clear, no respiratory distress, no accessory muscle use Cardiovascular: regular rate, rhythm Abdomen: normal bowel sounds, non tender, soft Extremities: no pedal edema, no calf tenderness Neurologic/Psychiatric: alert, normal mood/affect, oriented x 3 Skin: normal color, warm/dry, no rash Assessment and Plan 71 yo F with reported L subtrochanteric femur fracture, transferred here for Orthopedic surgery services. L femur fracture s/p intramedullary nail placed on 02/[address] Hatch: - Orthopedics signed off- f/u in 2 weeks - Pain well controlled w/ Roxicodone and IV Dilaudid PRN - Bowel regimen in place - PT/OT following - Postop op labs- unremarkable, H&H stable DVT prophylaxis: Lovenox SQ- will need for 2-4 weeks Code Status: LEVEL I, FULL Dispo: Pending [facility]
[2017-02-14 15:55] VITALS: BP 123/77; PULSE 94; TEMP 36.4; O2SAT 98
[2017-02-14] MEDS: DOCUSATE SODIUM/SENNA 50/8.6MG TAB PO SCH (21:04)
[2017-02-14] MEDS: ENOXAPARIN 40 MG/0.4 ML SYR SQ SCH (21:05)
[2017-02-14 23:18] VITALS: BP 110/63; PULSE 80; TEMP 37.1; O2SAT 99
[2017-02-15] MEDS: OXYCODONE HCL IR 5 MG TAB (IMMEDIATE RELEASE) PO PRN ×7 (00:02→21:01)
[2017-02-15 07:48] VITALS: BP 128/79; PULSE 80; TEMP 36.8; O2SAT 98
--- NOTE | 2017-02-15 11:26 | Hospitalist Progress Note ---
Hospitalist Progress Note Date of Service Feb 15, 2017. Subjective Pt evaluation today including: conversation w/ patient, conversation w/ family (multiple family members at bedside ) Voiding: no voiding problems, no incontinence Patient feeling well. Eating and drinking OK. Pain is well controlled. Patient denies any fever, chills, sweats, lightheadedness, dizziness, vision changes, CP, palpitations, edema, SOB, wheezing, cough, abdominal pain, nausea, vomiting, diarrhea, urinary symptoms, melena, numbness/tingling, weakness, anxiety/depression, active bleeding, or new skin discoloration/changes. Medications Current Inpatient Medications Medications (Trade) Dose Ordered Sig/Savage Route Start Time Stop Time Status Last Admin Dose Admin Zolpidem Tartrate (Ambien Tab) 5 mg HSZ PRN PO 02/11/17 21:45 03/13/17 21:44 Ondansetron HCl (Zofran Inj) 4 mg Q6H PRN IV 02/11/17 21:45 03/13/17 21:44 02/12/17 08:43 4 MG Acetaminophen (Tylenol Tab) 650 mg Q6H PRN PO 02/11/17 21:45 03/13/17 21:44 Oxycodone HCl (Roxicodone Immediate Rel Tab) 5 mg Q4H PRN PO 02/11/17 21:45 02/25/17 21:44 02/15/17 10:23 5 MG Oxycodone HCl (Roxicodone Immediate Rel Tab) 10 mg Q4H PRN PO 02/11/17 21:45 02/25/17 21:44 02/15/17 04:48 10 MG Naloxone HCl (Narcan Inj) 0.1 mg PRN PRN IV 02/11/17 21:45 03/13/17 21:44 Senna/Docusate Sodium (Senokot S Tab) 2 tab HS PO 02/12/17 21:00 03/14/17 20:59 02/14/17 21:04 2 TAB Polyethylene (Miralax Powder Packet) 17 gm DAILY PRN PO 02/11/17 21:45 03/13/17 21:44 Magnesium Hydroxide (Milk Of Magnesia Susp) 30 ml DAILY PRN PO 02/11/17 21:45 03/13/17 21:44 Bisacodyl (Dulcolax Supp) 10 mg DAILY PRN [place] 02/11/17 21:45 03/13/17 21:44 Sodium Biphosphate/ Sodium Phosphate (Fleet Enema) 132 ml PRN PRN [place] 02/11/17 21:45 Hydromorphone HCl (Dilaudid Inj) 0.5 mg Q3H PRN IV 02/12/17 03:05 02/25/17 21:44 02/13/17 06:07 0.5 MG Enoxaparin Sodium (Lovenox Inj) 40 mg HS SQ 02/12/17 21:00 03/14/17 20:59 02/14/17 21:05 40 MG Menthol (Nice Juliette) 1 juliette Q2H PRN PO 02/12/17 15:30 03/14/17 15:29 02/12/17 23:42 1 JULIETTE Bisacodyl (Dulcolax Supp) 10 mg DAILY PRN [place] 02/12/17 15:30 03/14/17 15:29 Lorazepam 0.5 mg/ Syringe 0.5 ml @ 0.5 mls/min Q8H PRN IV 02/13/17 12:30 03/15/17 12:29 02/13/17 15:44 0.5 MLS/MIN Objective Vital Signs Date Time Temp Pulse Resp B/P (MAP) Pulse Ox O2 Delivery O2 Flow Rate FiO2 02/15/17 10:37 Room Air 02/15/17 07:48 36.8 80 18 128/79 (95) 98 Room Air 02/14/17 23:18 37.1 80 14 110/63 (79) 99 Room Air 02/14/17 21:50 Room Air 02/14/17 15:55 36.4 94 18 123/77 (92) 98 Room Air 02/14/17 15:45 Room Air Physical Exam General Appearance: no apparent distress Eyes: normal inspection, PERRL ENT: hearing grossly normal Neck: supple Respiratory/Chest: lungs clear, no respiratory distress, no accessory muscle use Cardiovascular: regular rate, rhythm Abdomen: normal bowel sounds, non tender, soft Extremities: no pedal edema, no calf tenderness Neurologic/Psychiatric: alert, normal mood/affect, oriented x 3 Skin: normal color, warm/dry, no rash Assessment and Plan 71 yo F with reported L subtrochanteric femur fracture, transferred here for Orthopedic surgery services. L femur fracture s/p intramedullary nail placed on 02/[address] Hatch: - Orthopedics signed off- f/u in 2 weeks - Pain well controlled w/ Roxicodone and IV Dilaudid PRN - Bowel regimen in place - PT/OT following - Postop op labs- unremarkable, H&H stable DVT prophylaxis: Lovenox SQ- will need for 2-4 weeks Code Status: LEVEL I, FULL Dispo: Pending [facility]- health care social worker following
[2017-02-15 15:49] VITALS: BP 120/62; PULSE 86; TEMP 36.9; O2SAT 95
[2017-02-15] MEDS: DOCUSATE SODIUM/SENNA 50/8.6MG TAB PO SCH (21:01)
[2017-02-15] MEDS: ENOXAPARIN 40 MG/0.4 ML SYR SQ SCH (21:03)
[2017-02-15 23:09] VITALS: BP 104/62; PULSE 76; TEMP 37; O2SAT 97
[2017-02-16] MEDS: OXYCODONE HCL IR 5 MG TAB (IMMEDIATE RELEASE) PO PRN ×3 (04:33→13:50)
[2017-02-16 06:55] VITALS: BP 119/77; PULSE 93; TEMP 36.9; O2SAT 95
[2017-02-16 09:04] VITALS: BP 119/77; PULSE 93; TEMP 36.9; O2SAT 95
[2017-02-16] MEDS ORDERED: RXC5 PO (10:05)
[2017-02-16] MEDS ORDERED: SENN8.6T7 PO (10:05)
[2017-02-16] MEDS ORDERED: LVNIS40 SQ (10:05)
--- NOTE | 2017-02-16 10:21 | Discharge Instructions ---
Discharge Instructions Date of Service Feb 16, 2017. Admission Reason for Admission: Left Hip Fracture Discharge Discharge Diagnosis / Problem: Left hip fracture Discharge Goals Goal(s): Decrease discomfort, Improve function, Increase independence, Diagnostic testing, Therapeutic intervention, Prevent Disease Progression Activity Recommendations Activity Level: Assistance Required Therapies: Occupational Therapy, Speech Therapy As per orthopedics Additional Information Patient informed of condition: Yes Advance Directives: No DNR: No Level of Care: Acute Rehab Communicable Disease: No Prognosis: Improving Garcia Catheter: No Instructions / Follow-Up Instructions / Follow-Up L femur fracture s/p intramedullary nail placed on 02/[address] Hatch: - Orthopedics f/u 2 weeks - Roxicodone 5-10 mg q4hrs PRN for pain control DVT prophylaxis: Lovenox SQ- will need for 2-4 weeks per ortho (started on 02/12) Code Status: LEVEL I, FULL FOLLOW-UPS: Follow-up with [facility] provider within 24-48 hours Follow-up with PCP within 5-7 after discharge from [facility] Follow-up with Orthopedics surgery within 10-14 days Please follow-up/keep all of your subspecialty appointments Current Hospital Diet Patient's current hospital diet: Regular Diet Discharge Diet Recommended Diet: Regular Diet Procedures Procedures Performed: Left Intramedullary Guy Femur Pending Studies Studies pending at discharge: no Physician Orders On Transfer Special Precautions: Fall precautions Dressing Changes: Routine surgical incision site care IV Therapy: None Vital Signs: Routine POLST Discussion: Not Applicable Medical Emergencies . Who to Call and When: Medical Emergencies: If at any time you feel your situation is an emergency, please call 911 immediately. . Non-Emergent Contact Non-Emergency issues call your: Primary Care Provider Call Non-Emergent contact if: you have a fever, your pain is not controlled, your pain is worsening, your pain is unusual for you, your pain is concerning you, wound has increased drainage, wound has increased redness, wound has increased pain, you have any medication questions . . "Provider Documentation" section prepared by Mita Medina. . Weights And Measures Inspector Recommendations Weights And Measures Inspector Recommendations: U DISCHARGE INSTRUCTIONS: Proximal Femur Fracture SELF CARE INSTRUCTIONS: A. You are to ambulate with a walker or crutches for approximately 6 weeks. B. You are TOE TOUCH WEIGHT BEARING on your operative lower extremity for at least 6 weeks. C. Wear low heeled shoes with non-slip soles D. Be sure that your floors are free of things that could trip you throw rugs, electrical cords, and small objects. Avoid wet and waxed floors, especially with crutches/walker/cane. E. Try to walk several times a day with rest periods between. F. You may shower 48 hours after surgery and get the incision area wet, but DO NOT soak or submerge incision area in water. (No baths, swimming pools, hot tubs ) G. You may change your dressing daily if you have mild to moderate drainage. Change the dressing every other day if minimal drainage. Once the wound is dry , you may leave to the open air. H. Do NOT apply soap or any ointment/lotions directly over incision. I. You may use ice as needed to operative site. SPECIAL CARE INSTRUCTIONS: VERY IMPORTANT TO READ AND REVIEW A. You may be at risk for phlebitis or blood clots. a. Wear surgical stockings (BRITTON hose) for 2 weeks after surgery to improve circulation and reduce swelling. b. Take LOVENOX 40mg SQ daily for 2 - 4 weeks or as directed. This is your blood thinner. c. If you are on Coumadin- you will have daily/weekly blood work to monitor your levels. This will be done by either your family physician/ technical developer (if you are on Coumadin chronically) versus your orthopedic surgeon. Expect a phone call the day of or the day after your blood work is drawn to adjust your dose accordingly. B. There are a few signs you need to watch for after you are home. Call [facility] at [phone] if you experience any of the following: a. If you have a temperature of 101 degrees or higher. b. Sudden increase in pain in your hip not relieved by rest or pain medication. c. Any fluid or drainage from the incision; redness of the incision. d. Shortness of breath or chest pain. C. Call your physician if: a. Temperature is greater than 101 degrees (F). b. Pain is not relieved by prescribed pain medications. c. Increase drainage or redness from incision. d. Unanswered questions or concerns. D. Pain Medication: a. You will be prescribed pain medication upon discharge that should last till your first post-operative appointment. b. If you experience nausea and/or skin rash, discontinue this medication and contact our office for an alternative medication. c. Caution- narcotic pain medication can cause constipation. FOLLOW UP VISIT: Please call [facility] at [phone] to schedule a follow up appointment 10-14 days from the date of your surgery date. Core Measure Problem Core Measures: None
--- NOTE | 2017-02-16 10:21 | Discharge Summary ---
Discharge Summary Date of Service Feb 16, 2017. (Mita Medina PA-C) Discharge Summary Admission Date: Feb 11, 2017 at 21:15 Discharge Date: Feb 16, 2017 Discharge Disposition: Acute care facility Principal Diagnosis: Left hip fracture Immunizations: Have You Had Influenza Vaccine: Unknown History of Tetanus Vaccine?: Unknown History of Pneumococcal: Unknown History of Hepatitis B Vaccine: Unknown Procedures: LEFT HIP OR FILMS CLINICAL HISTORY: Fracture COMPARISON STUDY: Outside radiograph dated 02/11/2017 FLUOROSCOPY TIME: 2 to 58 seconds.. NUMBER OF FLUOROSCOPIC IMAGES: 6 FINDINGS: There is a trochanteric nail and interlocking intramedullary armaan. This traverses a subtrochanteric fracture which demonstrates approximately one quarter shaft width of displacement. IMPRESSION: Internally fixated subtrochanteric left femoral fracture Electronically signed by: Leonard Choudhury M.D. 02/12/2017 3:26 PM Dictated Date/Time: 02/12/2017 3:24 PM The status of this report is Signed. Draft = Not yet reviewed or approved by Radiologist. Signed = Reviewed and approved by Radiologist. DICTATED BY: Elia Hatch M.D. DATE OF OPERATION: 02/12/2017 PREOPERATIVE DIAGNOSIS: Subtrochanteric femur fracture, left. POSTOPERATIVE DIAGNOSIS: Subtrochanteric femur fracture, left. PROCEDURE: Closed locked intramedullary nailing, left subtrochanteric femur fracture. SURGEON: Dr. Hatch. LABORER [employer]: Dinh Duran PA-C. ANESTHESIA: General. COMPLICATIONS: None. Consultations: Orthopedics (Mita Medina PA-C) Medication Reconciliation New Medications: Enoxaparin (Enoxaparin Sodium) 40 Mg/0.4 Ml Inj 40 MG SQ HS for 14 Days Oxycodone HCl (Oxycodone HCl) 5 Mg Tab 5 MG PO Q4H PRN for Moderate pain (pain scale 4-6) for 3 Days, #12 TAB Oxycodone HCl (Oxycodone HCl) 5 Mg Tab 10 MG PO Q4H PRN for Severe pain (pain scale 7-10) for 3 Days, #24 TAB Sennosides-Docusate Sodium (Senokot S) 1 Tab Tab 2 TAB PO HS for 10 Days, TAB Discharge Exam Review of Systems: Constitutional: No fever, No chills, No sweats, No weakness, No fatigue Respiratory: No cough, No shortness of breath, No hemoptysis Cardiovascular: No chest pain, No edema, No palpitations Abdomen: No pain, No nausea, No vomiting, No diarrhea, No constipation Musculoskeletal: + joint pain, No muscle pain, No swelling, No calf pain Genitourinary - Female: No dysuria, No hematuria Neurologic: No weakness, No numbness/tingling Psychiatric: No depression symptoms, No anxiety Hematologic / Lymphatic: No abnormal bleeding/bruising Integumentary: No rash, No itch, No new/changing skin lesions Physical Exam: General Appearance: no apparent distress Eyes: normal inspection, PERRL ENT: hearing grossly normal Neck: supple Respiratory/Chest: lungs clear, no respiratory distress, no accessory muscle use Cardiovascular: regular rate, rhythm Abdomen / GI: normal bowel sounds, non tender, soft Extremities: no calf tenderness, no pedal edema Neurologic/Psychiatric: alert, normal mood/affect, oriented x 3 Skin: normal color, warm/dry, no rash (Mita Medina, PA-C) Hospital Course Admission H&P: Mrs Hauser is a 77-year-old female who lives in [place], who was transferred here for treatment of a left femur fracture. Earlier today she was lifting a bucket of corn and tripped and fell onto her left side. She had excruciating pain. She was taken to [facility] requested to be taken to [facility] as there are no orthopedic services there. She reports her pain has somewhat improved after pain medications. She denies any chest pain or shortness of breath with exertion. Her only surgery was a cholecystectomy 15 years ago, she denies any complications with that. Physical Exam Vital Signs Date Time Temp Pulse Resp B/P (MAP) Pulse Ox O2 Delivery O2 Flow Rate FiO2 02/11/17 21:28 37.1 87 16 152/79 99 Nasal Cannula 2.0 General Appearance: WD/WN, + mild distress Head: normocephalic, atraumatic Eyes: normal inspection ENT: hearing grossly normal Neck: supple, no JVD Respiratory/Chest: lungs clear, normal breath sounds, no respiratory distress Cardiovascular: regular rate, rhythm, no murmur, normal peripheral pulses Abdomen/GI: normal bowel sounds, non tender, soft Back: no CVA tenderness, no muscle spasm Extremities/Musculoskelatal: normal inspection, no pedal edema Neurologic/Psych: alert, normal mood/affect, normal reflexes, oriented x 3 Hospital Course: L femur fracture s/p intramedullary nail placed on 02/[address] Hatch: - Orthopedics signed off- f/u in 2 weeks - Pain well controlled w/ Roxicodone 5-10 mg q4 hrs PRN - Bowel regimen in place - PT/OT following - Postop op labs- unremarkable, H&H stable DVT prophylaxis: Lovenox SQ- will need for 2-4 weeks per ortho (started on 02/12 ) Code Status: LEVEL I, FULL Dispo: Discharge to [facility] Total Time Spent: Greater than 30 minutes This includes examination of the patient, discharge planning, medication reconciliation, and communication with other providers. (Mita Medina, RENEEC) Discharge Instructions Please refer to the electronic Patient Visit Report (Discharge Instructions) for additional information. (Mita Medina, RENEEC) Follow-Up Follow-up with [facility] provider within 24-48 hours Please follow-up with your PCP within 5-7 days from discharge at [facility] Please follow-up with Orthopedics in 10-14 days Please follow-up/keep all of your subspecialty appointments (Mita Medina, COLE-C) Additional Copies To Yoni Lima M.D. Reviewed: Pt Seen/Exam by Me (Alicja Armstrong, ) History Pt is doing well and anticipating d/c today. Pain related to post-op status, but managing. Tolerating PO without issue. No chest pain or SOB. Agree with HPI/ROS as noted. (Alicja Armstrong, DO) General Appearance: WD/WN, no apparent distress Respiratory: normal breath sounds, no respiratory distress Cardiovascular: normal peripheral pulses, regular rate, rhythm Gastrointestinal: non tender, soft Extremities: non-tender, normal inspection Neurologic/Psychiatric: alert, oriented x 3 (Alicja Armstrong, ) Assessment/Plan Agree with plan as outlined above s/p L hip repair s/p mechanical fall (Alicja Armstrong, )
== END 2017-02-16 15:05 | DRG 482 ==
LOC: C.3E 21:15
PROVIDERS: ADMIT Hospitalist; ATTEND Family Medicine
PROC: 0QS706Z Reposition Left Upper Femur with Intramedullary Internal Fixation Device, Open Approach (ICD-10-PCS; principal; 2017-02-12 12:45)
DX: S72.22XA Displaced subtrochanteric fracture of left femur, initial encounter for closed fracture (principal); W01.0XXA Fall on same level from slipping, tripping and stumbling without subsequent striking against object, initial encounter

== ENCOUNTER 2017-03-08 20:38 | Emergency (ER) | payer OTHER ==
[~2017-03-08] VITALS: Ht 157.5 cm; Wt 73.0 kg
[~2017-03-08 20:38] MED LIST: LVNIS40 SQ; RXC5 PO; SENN8.6T7 PO
[2017-03-08 20:40] VITALS: TEMP 36.6; Ht 157.5 cm; Wt 73.0 kg
--- NOTE | 2017-03-08 21:07 | EMERGENCY ROOM VISIT NOTE ---
History Report prepared by Ronak: Mary Dewey Under the Supervision of: Dr. Rajesh Morris M.D. First contact with patient: 20:45 Chief Complaint: SHORTNESS OF BREATH Stated Complaint: SOB, FEMUR REPAIR SURGERY 02-12 History of Present Illness The patient is a 71 year old female who presents to the Emergency Room with complaints of sudden shortness of breath today. The patient reports that she was unable to use her spirometer today that she had from her femur repair surgery on February 12. The patient states that she was on a blood thinner but is not taking it anymore. She reports that she uses a walker when she ambulates. The patient also reports having abdominal pain that she describes as being achy , but denies nausea, diarrhea, constipation, fevers, and vomiting. The patient states that she had a blood clot that dissolved when she had varicose veins. She reports no history of COPD or asthma. Source of History: patient Onset: today Position: other (global) Quality: other (shortness of breath ) Timing: other (sudden ) Associated Symptoms: + abdominal pain (achy pain ), No fevers, No nausea, No vomiting, No diarrhea Review of Systems See HPI for pertinent positives and negatives. A total of ten systems were reviewed and were otherwise negative. Past Medical & Surgical Medical Problems: (1) Femur fracture, left (2) Pulmonary embolism Family History No pertinent family history stated. Social History Smoking Status: Never Smoker Drug Use: none Marital Status: Occupation Status: retired Current/Historical Medications Scheduled Calcium Carbonate-Cholecalcife (Caltrate 600+D), 2 TAB PO DAILY Allergies Coded Allergies: Cephalexin (Verified Allergy, Intermediate, RASH, 03/08/17) Physical Exam Vital Signs Date Time Temp Pulse Resp B/P (MAP) Pulse Ox O2 Delivery O2 Flow Rate FiO2 03/09/17 01:49 76 22 124/62 94 Room Air 03/09/17 01:23 75 03/09/17 00:12 74 20 129/64 95 Room Air 03/08/17 23:06 96 Room Air 03/08/17 22:01 74 18 137/80 96 Room Air 03/08/17 21:10 83 03/08/17 20:40 36.6 88 20 161/94 96 Room Air Physical Exam GENERAL: Awake, alert, well-appearing, in no distress HENT: Normocephalic, atraumatic. Oropharynx unremarkable. Dry mucous membranes. EYES: Normal conjunctiva. Sclera non-icteric. NECK: Supple. No nuchal rigidity. FROM. No JVD. RESPIRATORY: Clear to auscultation. CARDIAC: Regular rate, normal rhythm. Extremities warm and well perfused. Pulses equal. ABDOMEN: Soft, non-distended. No tenderness to palpation. No rebound or guarding. No masses. RECTAL: Deferred. MUSCULOSKELETAL: Chest examination reveals no tenderness. The back is symmetrical on inspection without obvious abnormality. There is no CVA tenderness to palpation. No joint edema. LOWER EXTREMITIES: Femur incision sight is clean and intact, no warmth or tenderness. Calves are equal size bilaterally and non-tender. No edema. No discoloration. NEURO: Normal sensorium. No sensory or motor deficits noted. SKIN: No rash or jaundice noted. Medical Decision & Procedures ER Provider Diagnostic Interpretation: X-ray: Per my interpretation, radiologist review. CHEST ONE VIEW PORTABLE HISTORY: Atypical CHEST PAIN COMPARISON: None. FINDINGS: Low lung volumes. The heart is borderline enlarged. Tortuous thoracic aorta. No evidence for pulmonary edema. No pneumothorax. Bibasilar linear densities. There may be trace bilateral pleural effusions. IMPRESSION: 1. Low lung volumes with bibasilar linear densities. This favors atelectasis. However, pneumonia could also have a similar appearance. 2. Suspect trace bilateral pleural effusions. Electronically signed by: Michael John M.D. 03/08/2017 9:39 PM Dictated Date/Time: 03/08/2017 9:38 PM Radiology results as stated below per my review and radiologist interpretation: CHEST CTA for PULMONARY ARTERIES CT DOSE: 299.04 mGy.cm HISTORY: Atypical chest pain. TECHNIQUE: Multiaxial CT images of the chest were performed following the intravenous administration of contrast to evaluate the pulmonary arteries. Maximal intensity projection images were also obtained. A dose lowering technique was utilized adhering to the principles of ALARA. COMPARISON STUDY: Chest 03/08/2017. FINDINGS: Normal caliber thoracic aorta with no evidence for dissection. Trace right pleural effusion. The heart is normal in size. Low lung volumes with mild elevation of the right hemidiaphragm. Mildly enlarged thyroid gland. No mediastinal or hilar lymphadenopathy. Suboptimal evaluation of the right middle lobe and right lower lobe segmental and subsegmental pulmonary arteries due to the motion artifact. However, there is a filling defect seen within the right lower lobe subsegmental pulmonary arteries consistent with pulmonary emboli. This is best seen on image 98. There may be an additional filling defect versus artifact within a right lower lobe subsegmental pulmonary artery on image 111. The visualized liver, spleen, and adrenal glands are unremarkable. Bibasilar lower lobe consolidation, right greater than left. The right lower lobe basilar consolidation demonstrates heterogeneous enhancement. Therefore, this could be due to a pulmonary infarct. Pneumonia or atelectasis could also have a similar appearance. No pneumothorax. Punctate calcified granuloma within the left lower lobe. Punctate calcified granuloma within the right upper lobe. Multiple additional subcentimeter nodules within the right upper lobe also favor calcified granulomas but are difficult to characterize due to the motion artifact. These measure up to 4 mm in size. IMPRESSION: 1. Right lower lobe subsegmental pulmonary emboli. 2. Bibasilar lower lobe consolidation, right greater than left. The right lower lobe consolidation demonstrates heterogeneous enhancement and therefore favors a pulmonary infarct. A pneumonia or atelectasis could also have a similar appearance. 3. Trace right pleural effusion. Electronically signed by: Michael John M.D. 03/08/2017 11:12 PM Dictated Date/Time: 03/08/2017 11:03 PM Laboratory Results 03/08/17 20:55 Red Blood Count 4.22, Mean Corpuscular Volume 89.6, Mean Corpuscular Hemoglobin 28.9, Mean Corpuscular Hemoglobin Concent 32.3, Mean Platelet Volume 8.9, Neutrophils (%) (Auto) 62.6, Lymphocytes (%) (Auto) 25.2, Monocytes (%) (Auto) 9.6, Eosinophils (%) (Auto) 2.0, Basophils (%) (Auto) 0.4, Neutrophils # (Auto) 6.72, Lymphocytes # (Auto) 2.70, Monocytes # (Auto) 1.03, Eosinophils # (Auto) 0.21, Basophils # (Auto) 0.04 03/08/17 20:55 Test 03/08/17 20:55 White Blood Count 10.72 K/uL (4.8-10.8) Red Blood Count 4.22 M/uL (4.2-5.4) Hemoglobin 12.2 g/dL (12.0-16.0) Hematocrit 37.8 % (37-47) Mean Corpuscular Volume 89.6 fL (80-100) Mean Corpuscular Hemoglobin 28.9 pg (25-34) Mean Corpuscular Hemoglobin Concent 32.3 g/dl (32-36) Platelet Count 440 K/uL (130-400) Mean Platelet Volume 8.9 fL (7.4-10.4) Neutrophils (%) (Auto) 62.6 % Lymphocytes (%) (Auto) 25.2 % Monocytes (%) (Auto) 9.6 % Eosinophils (%) (Auto) 2.0 % Basophils (%) (Auto) 0.4 % Neutrophils # (Auto) 6.72 K/uL (1.4-6.5) Lymphocytes # (Auto) 2.70 K/uL (1.2-3.4) Monocytes # (Auto) 1.03 K/uL (0.11-0.59) Eosinophils # (Auto) 0.21 K/uL (0-0.5) Basophils # (Auto) 0.04 K/uL (0-0.2) RDW Standard Deviation 47.8 fL (36.4-46.3) RDW Coefficient of Variation 14.6 % (11.5-14.5) Immature Granulocyte % (Auto) 0.2 % Immature Granulocyte # (Auto) 0.02 K/uL (0.00-0.02) D-Dimer 1280 ug/L FEU (0-500) Anion Gap 8.0 mmol/L (3-11) Est Creatinine Clear Calc Drug Dose 56.0 ml/min Estimated GFR () 79.3 Estimated GFR (Non- 68.5 BUN/Creatinine Ratio 22.6 (10-20) Calcium Level 9.4 mg/dl (8.5-10.1) Total Bilirubin 0.4 mg/dl (0.2-1) Direct Bilirubin 0.1 mg/dl (0-0.2) Aspartate Amino Transf (AST/SGOT) 11 U/L (15-37) Alanine Aminotransferase (ALT/SGPT) 18 U/L (12-78) Alkaline Phosphatase 152 U/L (45-117) Troponin I < 0.015 ng/ml (0-0.045) Pro-B-Type Natriuretic Peptide 70 pg/ml (0-900) Total Protein 7.6 gm/dl (6.4-8.2) Albumin 4.0 gm/dl (3.4-5.0) Lipase 126 U/L (73-393) Laboratory results reviewed by me Medications Administered Medications (Trade) Dose Ordered Sig/Savage Route Start Time Stop Time Status Last Admin Dose Admin Sodium Chloride 1,000 ml @ 999 mls/hr Q1H1M STAT IV 03/08/17 21:55 03/08/17 22:55 DC 03/08/17 21:55 999 MLS/HR Enoxaparin Sodium (Lovenox Inj) 70 mg ONE STAT SQ 03/08/17 23:46 03/08/17 23:47 DC 03/08/17 23:59 70 MG ECG Indication: SOB/dyspnea Rate (beats per minute): 80 Rhythm: normal sinus Findings: RBBB, no acute ischemic change, left axis deviation Change: no significant change ED Course 2100: The patient was evaluated in room B12. A complete history and physical exam was performed. 2155: Ordered Sodium Chloride 1,000 ml @ 999 mls/hr IV. 2334: Discussed the patient's case with Dr. Bright. The patient will be evaluated for further treatment and disposition. 2345: Ordered Enoxaparin Sodium 1 ea SQ. 2346: Ordered Lovenox Inj 70 mg SQ. 2348: Upon reexamination, the patient was resting. I discussed the test results and treatment plan with her. The patient will be evaluated for further management. Medical Decision I reviewed the patient's past medical history, medications, and the nursing notes as described above. Differentials include: pulmonary embolism, musculoskeletal strain, pneumonia, acute coronary syndrome, congestive heart failure, and bronchitis. She is a 16-year-old woman with a past medical history of a recent femur fracture 1 month ago [facility] with the complaint of shortness of breath she noticed after doing her I asked today and realized he could not hit 1000 like she has been per history of present illness. Arrival the patient is well-appearing in no acute distress, febrile with stable vital signs. EKG with baseline right bundle-branch block unchanged from prior. Troponin negative. D- dimer elevated and a CT PE study was done showing positive right subsegmental PEs. There is also question of pulmonary infarct versus pneumonia. However, patient denies any fevers or chills. Will treat with Lovenox and admitted for further management. Medication Reconcilliation Current Medication List: was personally reviewed by me Blood Pressure Screening Patient's blood pressure: Elevated blood pressure Blood pressure disposition: Elevated BP felt to be situational Consults Time Called: [phone] Consulting Physician: Dr. Bright-[facility] Returned Call: [phone] Discussed the patient's case. The patient will be evaluated for further treatment and disposition. Impression Primary Impression: Pulmonary embolism Scribe Attestation The scribe's documentation has been prepared under my direction and personally reviewed by me in its entirety. I confirm that the note above accurately reflects all work, treatment, procedures, and medical decision making performed by me. Departure Information Dispostion Being Evaluated By Hospitalist Referrals Yoni Lima M.D. (PCP) Patient Instructions My [facility]
[2017-03-08] MEDS ORDERED: CALC-354 PO (21:17)
[2017-03-08 21:18] LABS: BASO % 0.4 %; BASO ABS # 0.04 K/uL (0-0.2); COMPLETE YES; HEMATOCRIT 37.8 % (37-47); IG% 0.2 %; LYMPH % 25.2 %; MEAN CELL VOLUME 89.6 fL (80-100); MEAN CORPUSCULAR HEMOGLOBIN 28.9 pg (25-34); MEAN CORPUSCULAR HGB CONC 32.3 g/dl (32-36); MEAN PLATELET VOLUME 8.9 fL (7.4-10.4); MONO % 9.6 %; NEUT % 62.6 %; PLATELET COUNT 440 K/uL (130-400); RED BLOOD COUNT 4.22 M/uL (4.2-5.4); WHITE BLOOD COUNT 10.72 K/uL (4.8-10.8)
[2017-03-08 21:26] LABS: ALT/SGPT 18 U/L (12-78); BLOOD UREA NITROGEN 19 mg/dl (7-18); BUN/CREATININE RATIO 22.6 (10-20); CALCIUM 9.4 mg/dl (8.5-10.1); CARBON DIOXIDE 25 mmol/L (21-32); CHLORIDE 106 mmol/L (98-107); CREATININE 0.85 mg/dl (0.60-1.20); GLUCOSE 123 mg/dl (70-99); POTASSIUM 3.8 mmol/L (3.5-5.1); SODIUM 139 mmol/L (136-145)
[2017-03-08 21:31] LABS: ALKALINE PHOSPHATASE 152 U/L (45-117); AST/SGOT 11 U/L (15-37)
--- NOTE | 2017-03-08 21:40 | DIAGNOSTIC IMAGING REPORT ---
CHEST ONE VIEW PORTABLE HISTORY: Atypical CHEST PAIN COMPARISON: None. FINDINGS: Low lung volumes. The heart is borderline enlarged. Tortuous thoracic aorta. No evidence for pulmonary edema. No pneumothorax. Bibasilar linear densities. There may be trace bilateral pleural effusions. IMPRESSION: 1. Low lung volumes with bibasilar linear densities. This favors atelectasis. However, pneumonia could also have a similar appearance. 2. Suspect trace bilateral pleural effusions. Electronically signed by: Michael John M.D. 03/08/2017 9:39 PM Dictated Date/Time: 03/08/2017 9:38 PM
[2017-03-08] MEDS ORDERED: SODIUM CHLORIDE 0.9% 1000ML 1,000 ML IV STA (21:55)
[2017-03-08] MEDS ORDERED: OPTIRAY 320 IV PRN (23:00)
[2017-03-08 23:06] VITALS: O2SAT 96
--- NOTE | 2017-03-08 23:13 | DIAGNOSTIC IMAGING REPORT ---
CHEST CTA for PULMONARY ARTERIES CT DOSE: 299.04 mGy.cm HISTORY: Atypical chest pain. TECHNIQUE: Multiaxial CT images of the chest were performed following the intravenous administration of contrast to evaluate the pulmonary arteries. Maximal intensity projection images were also obtained. A dose lowering technique was utilized adhering to the principles of ALARA. COMPARISON STUDY: Chest 03/08/2017. FINDINGS: Normal caliber thoracic aorta with no evidence for dissection. Trace right pleural effusion. The heart is normal in size. Low lung volumes with mild elevation of the right hemidiaphragm. Mildly enlarged thyroid gland. No mediastinal or hilar lymphadenopathy. Suboptimal evaluation of the right middle lobe and right lower lobe segmental and subsegmental pulmonary arteries due to the motion artifact. However, there is a filling defect seen within the right lower lobe subsegmental pulmonary arteries consistent with pulmonary emboli. This is best seen on image 98. There may be an additional filling defect versus artifact within a right lower lobe subsegmental pulmonary artery on image 111. The visualized liver, spleen, and adrenal glands are unremarkable. Bibasilar lower lobe consolidation, right greater than left. The right lower lobe basilar consolidation demonstrates heterogeneous enhancement. Therefore, this could be due to a pulmonary infarct. Pneumonia or atelectasis could also have a similar appearance. No pneumothorax. Punctate calcified granuloma within the left lower lobe. Punctate calcified granuloma within the right upper lobe. Multiple additional subcentimeter nodules within the right upper lobe also favor calcified granulomas but are difficult to characterize due to the motion artifact. These measure up to 4 mm in size. IMPRESSION: 1. Right lower lobe subsegmental pulmonary emboli. 2. Bibasilar lower lobe consolidation, right greater than left. The right lower lobe consolidation demonstrates heterogeneous enhancement and therefore favors a pulmonary infarct. A pneumonia or atelectasis could also have a similar appearance. 3. Trace right pleural effusion. Electronically signed by: Michael John M.D. 03/08/2017 11:12 PM Dictated Date/Time: 03/08/2017 11:03 PM
[2017-03-08] MEDS ORDERED: ENOXAPARIN 1 MG/KG SQ SCH (23:45)
[2017-03-08] MEDS ORDERED: ENOXAPARIN 80 MG/0.8 ML SYR SQ STA (23:46)
[2017-03-09] MEDS ORDERED: MoRPHine SULFATE 2 MG/ML CARP IV PRN
[2017-03-09] MEDS ORDERED: ZOLPIDEM TARTRATE 5 MG TAB PO PRN
[2017-03-09] MEDS ORDERED: ALUMINUM/MAGNESIUM/SIMETH (MAALOX MAX) 30 ML UDC PO PRN
[2017-03-09] MEDS ORDERED: POLYETHYLENE (MIRALAX) 17 GM PACK PO PRN
[2017-03-09] MEDS ORDERED: MAGNESIUM HYDROXIDE SUSP 30 ML UDC PO PRN
[2017-03-09] MEDS ORDERED: ACETAMINOPHEN 325 MG TAB PO PRN
[2017-03-09] MEDS ORDERED: ONDANSETRON INJ 2 MG/ML 2 ML VIAL IV PRN
--- NOTE | 2017-03-09 00:40 | Medical Consult ---
Consultation Date of Consultation: Mar 09, 2017. Attending Physician: History of Present Illness 71 y/o F Hx osteoporosis and possible DVT or thrombophlebitis. The pt underwent repair of a L femoral fracture on 02/12. She recently returned home form rehab. Today she became acutely sob and presented to the hospital for evaluation. A CTA revealed a R segmental PE. She has not displayed tachycardia or hypoxia. She does complain of some pleuritic R CP. Past Medical/Surgical History 1) Osteoporosis 2) Femoral fracture 02/19 3) Reports either a DVT or thrombophlebitis/superficial thrombosis following varicose vein stripping - did not require anticoagulation so the latter is more likely Family History Father owing to COPD Social History Smoking Status: Never Smoker Alcohol Use: occasionally Drug Use: none Marital Status: Occupation Status: retired Allergies Coded Allergies: Cephalexin (Verified Allergy, Intermediate, RASH, 03/08/17) Current Inpatient Medications Current Inpatient Medications Medications (Trade) Dose Ordered Sig/Savage Route Start Time Stop Time Status Last Admin Dose Admin Ioversol (Optiray 320) 88 ml UD PRN IV 03/08/17 23:00 03/12/17 22:59 Enoxaparin Sodium (Lovenox 1 Mg/Kg) 1 ea Q12H SQ 03/08/17 23:45 04/07/17 23:44 Acetaminophen (Tylenol Tab) 650 mg Q4H PRN PO 03/09/17 00:00 04/08/17 00:00 UNV Al Hydrox/Mg Hydrox/Simethicone (Maalox Max Susp) 15 ml Q4H PRN PO 03/09/17 00:00 04/08/17 00:00 UNV Magnesium Hydroxide (Milk Of Magnesia Susp) 30 ml Q12H PRN PO 03/09/17 00:00 04/08/17 00:00 UNV Zolpidem Tartrate (Ambien Tab) 5 mg HSZ PRN PO 03/09/17 00:00 04/08/17 00:00 UNV Ondansetron HCl (Zofran Inj) 4 mg Q6H PRN IV 03/09/17 00:00 04/08/17 00:00 UNV Morphine Sulfate (MoRPHine SULFATE INJ) 2 mg Q30M PRN IV 03/09/17 00:00 03/23/17 00:00 UNV Polyethylene (Miralax Powder Packet) 17 gm DAILY PRN PO 03/09/17 00:00 04/08/17 00:00 UNV Enoxaparin Sodium (Lovenox 1 Mg/Kg) 1 ea Q12H SQ 03/09/17 00:00 04/08/17 00:00 UNV Review of Systems Constitutional: No fever, No chills, No sweats Eyes: No worsening of vision ENT: No hearing loss, No unusual epistaxis, No nasal symptoms Respiratory: + shortness of breath, + dyspnea on exertion, + dyspnea at rest, No cough, No sputum, No wheezing Cardiovascular: + chest pain (PLeuritic), No orthopnea, No PND Abdomen: No pain, No nausea, No vomiting Musculoskeletal: No joint pain Genitourinary - Female: No dysuria, No urinary frequency, No urinary urgency Neurologic: No memory loss, No paralysis Psychiatric: No depression symptoms Endocrine: No fatigue Hematologic / Lymphatic: No abnormal bleeding/bruising Integumentary: No rash Physical Exam Date Time Temp Pulse Resp B/P (MAP) Pulse Ox O2 Delivery O2 Flow Rate FiO2 03/09/17 00:12 74 20 129/64 95 Room Air 03/08/17 23:06 96 Room Air 03/08/17 22:01 74 18 137/80 96 Room Air 03/08/17 21:10 83 03/08/17 20:40 36.6 88 20 161/94 96 Room Air General Appearance: WD/WN, no apparent distress Head: normocephalic Eyes: normal inspection, EOMI ENT: normal ENT inspection, pharynx normal Neck: supple, no JVD Respiratory/Chest: chest non-tender, lungs clear, normal breath sounds Cardiovascular: regular rate, rhythm, no edema, no gallop Abdomen/GI: normal bowel sounds, non tender, soft Back: normal inspection, no CVA tenderness, no muscle spasm, normal range of motion Extremities/Musculoskelatal: normal inspection, no calf tenderness, normal capillary refill, + pertinent finding (SOme R sided swelling is present without significant edema or tenderness in the posterior popliteal region) 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, no motor/sensory deficits, alert Skin: normal color, warm/dry, no rash Laboratory Results Last 24 Hours Test 03/08/17 20:55 White Blood Count 10.72 K/uL Red Blood Count 4.22 M/uL Hemoglobin 12.2 g/dL Hematocrit 37.8 % Mean Corpuscular Volume 89.6 fL Mean Corpuscular Hemoglobin 28.9 pg Mean Corpuscular Hemoglobin Concent 32.3 g/dl Platelet Count 440 K/uL Mean Platelet Volume 8.9 fL Neutrophils (%) (Auto) 62.6 % Lymphocytes (%) (Auto) 25.2 % Monocytes (%) (Auto) 9.6 % Eosinophils (%) (Auto) 2.0 % Basophils (%) (Auto) 0.4 % Neutrophils # (Auto) 6.72 K/uL Lymphocytes # (Auto) 2.70 K/uL Monocytes # (Auto) 1.03 K/uL Eosinophils # (Auto) 0.21 K/uL Basophils # (Auto) 0.04 K/uL RDW Standard Deviation 47.8 fL RDW Coefficient of Variation 14.6 % Immature Granulocyte % (Auto) 0.2 % Immature Granulocyte # (Auto) 0.02 K/uL D-Dimer 1280 ug/L FEU Sodium Level 139 mmol/L Potassium Level 3.8 mmol/L Chloride Level 106 mmol/L Carbon Dioxide Level 25 mmol/L Anion Gap 8.0 mmol/L Blood Urea Nitrogen 19 mg/dl Creatinine 0.85 mg/dl Est Creatinine Clear Calc Drug Dose 56.0 ml/min Estimated GFR () 79.3 Estimated GFR (Non- 68.5 BUN/Creatinine Ratio 22.6 Random Glucose 123 mg/dl Calcium Level 9.4 mg/dl Total Bilirubin 0.4 mg/dl Direct Bilirubin 0.1 mg/dl Aspartate Amino Transf (AST/SGOT) 11 U/L Alanine Aminotransferase (ALT/SGPT) 18 U/L Alkaline Phosphatase 152 U/L Troponin I < 0.015 ng/ml Pro-B-Type Natriuretic Peptide 70 pg/ml Total Protein 7.6 gm/dl Albumin 4.0 gm/dl Lipase 126 U/L Assessment & Plan 71 y/o F - recent repair of a R femoral fracture - presenting with acute SOB - CTA confirms a RLL PE 1) PE Results of a CTA are as follows: 1. Right lower lobe subsegmental pulmonary emboli. 2. Bibasilar lower lobe consolidation, right greater than left. The right lower lobe consolidation demonstrates heterogeneous enhancement and therefore favors a pulmonary infarct. A pneumonia or atelectasis could also have a similar appearance. 3. Trace right pleural effusion. Pt does not exhibit any hemodynamic instability which would not be expected with her current findings. She has not exhibited hypoxia or tachycardia. There is some concern for infarct on imaging although not definitive. Considering her general good health and stable vital signs we would likely recommend discharge with outpt Lovenox. She can transition to oral anticoagulants at the discretion of her PCP. Her daughter present at bedside is her current special shopper and will be provided with Lovenox teaching prior to DC. We will obtain lower extremity dopplers prior to decision to DC and may admit pt if there is indication of a large clot burden. Regarding her fracture, she has scheduled home PT. She does not yet weight bear which she will be assessed for on the . Total time for this consult including review of labs, meds, EKG, imaging - discussion with pt, daughter, ER attending - 35 min
[2017-03-09 01:49] VITALS: BP 124/62; PULSE 76; O2SAT 94
--- NOTE | 2017-03-09 06:44 | DIAGNOSTIC IMAGING REPORT ---
BILATERAL LOWER EXTREMITY VENOUS DOPPLER HISTORY: Evaluation for deep venous thrombosis secondary to right lower lobe subsegmental pulmonary emboli seen on comparison CT of the chest.. DVT COMPARISON STUDY: CT of the chest 03/08/2017 FINDINGS: There is normal compressibility, flow, and augmentation within the bilateral lower extremity deep venous systems. IMPRESSION: No sonographic evidence of deep venous thrombosis within the right or left lower extremity. Electronically signed by: Remy Hutson M.D. 03/09/2017 6:43 AM Dictated Date/Time: 03/09/2017 6:41 AM
[2017-03-09] MEDS ORDERED: ENOXAPARIN 80 MG/0.8 ML SYR SQ SCH (10:00)
== END 2017-03-09 01:57 | disposition home or self-care (01) ==
LOC: C.EDB 20:39 → ENRESERV 03-09 → CANRESERV 03-09 → CANBEDREQ 03-09 01:28 → C.EDB 03-09 01:57
DX: I26.99 Other pulmonary embolism without acute cor pulmonale (principal); M81.0 Age-related osteoporosis without current pathological fracture; Z86.718 Personal history of other venous thrombosis and embolism; Z98.890 Other specified postprocedural states; Z82.5 Family history of asthma and other chronic lower respiratory diseases

== ENCOUNTER → 2017-04-22 | Outpatient (CLI) | payer OTHER ==
[~2017-04-22] MED LIST changes: +CALC-354 PO; -LVNIS40 SQ; -RXC5 PO; -SENN8.6T7 PO
[2017-04-22 13:35] LABS: BASO % 0.5 %; BASO ABS # 0.04 K/uL (0-0.2); COMPLETE YES; EOS % 2.4 %; HEMATOCRIT 39.2 % (37-47); IG% 0.2 %; LYMPH % 29.1 %; LYMPH ABS # 2.34 K/uL (1.2-3.4); MEAN CELL VOLUME 86.5 fL (80-100); MEAN CORPUSCULAR HEMOGLOBIN 28.9 pg (25-34); MEAN CORPUSCULAR HGB CONC 33.4 g/dl (32-36); MEAN PLATELET VOLUME 9.9 fL (7.4-10.4); MONO % 7.5 %; NEUT % 60.3 %; PLATELET COUNT 385 K/uL (130-400); RED BLOOD COUNT 4.53 M/uL (4.2-5.4); WHITE BLOOD COUNT 8.04 K/uL (4.8-10.8)
[2017-04-22 13:51] LABS: FERRITIN 358.9 ng/ml (8.0-388.0)
== END | disposition home or self-care (01) ==
LOC: C.LABMFLN 09:09
PROVIDERS: ATTEND Family Medicine
DX: I26.99 Other pulmonary embolism without acute cor pulmonale (principal); M81.0 Age-related osteoporosis without current pathological fracture; E55.9 Vitamin D deficiency, unspecified

== ENCOUNTER → 2017-06-23 | Outpatient (CLI) | payer OTHER ==
[~2017-06-23] MED LIST changes: +CHOL2000 PO; +RIVA1TAB4 PO
[2017-06-23 12:32] LABS: BASO % 0.9 %; BASO ABS # 0.07 K/uL (0-0.2); COMPLETE YES; EOS % 2.4 %; HEMATOCRIT 40.4 % (37-47); IG% 0.2 %; LYMPH % 30.7 %; LYMPH ABS # 2.52 K/uL (1.2-3.4); MEAN CELL VOLUME 84.5 fL (80-100); MEAN CORPUSCULAR HEMOGLOBIN 28.7 pg (25-34); MEAN CORPUSCULAR HGB CONC 33.9 g/dl (32-36); MEAN PLATELET VOLUME 9.2 fL (7.4-10.4); MONO % 4.6 %; NEUT % 61.2 %; PLATELET COUNT 385 K/uL (130-400); RED BLOOD COUNT 4.78 M/uL (4.2-5.4); WHITE BLOOD COUNT 8.21 K/uL (4.8-10.8)
[2017-06-23 12:37] LABS: URINE APPEARANCE CLEAR (CLEAR); URINE BILIRUBIN NEG (NEG); URINE COLOR YELLOW; URINE NITRITE NEG (NEG); URINE PH 5.5 (4.5-7.5); URINE SPECIFIC GRAVITY 1.011 (1.000-1.030); UROBILINOGEN NEG (NEG); ZZUR CULT IF INDIC CLEAN CATCH NO
[2017-06-23 12:41] LABS: INR 1.2 (0.9-1.1); PARTIAL THROMBOPLASTIN RATIO 1.3
[2017-06-23 12:42] LABS: MANUAL MICROSCOPIC REQUIRED? NO; REVIEW REQ? NO
--- NOTE | 2017-06-23 12:42 | DIAGNOSTIC IMAGING REPORT ---
CHEST 2 VIEWS ROUTINE CLINICAL HISTORY: Preoperative chest COMPARISON STUDY: 03/08/2017 FINDINGS: The cardiac and mediastinal contours are normal. There is no evidence of focal pulmonary consolidation. There is no evidence of failure. No pleural effusions are visualized.[ IMPRESSION: No active disease in the chest. Electronically signed by: Leonard Choudhury M.D. 06/23/2017 12:41 PM Dictated Date/Time: 06/23/2017 12:41 PM
[2017-06-23 14:53] LABS: BLOOD UREA NITROGEN 14 mg/dl (7-18); BUN/CREATININE RATIO 17.4 (10-20); CARBON DIOXIDE 28 mmol/L (21-32); CHLORIDE 105 mmol/L (98-107); CREATININE 0.83 mg/dl (0.60-1.20); GLUCOSE 94 mg/dl (70-99); POTASSIUM 4.6 mmol/L (3.5-5.1); SODIUM 137 mmol/L (136-145)
== END | disposition home or self-care (01) ==
LOC: C.LAB 08:00
DX: Z01.812 Encounter for preprocedural laboratory examination (principal); Z01.818 Encounter for other preprocedural examination; Z01.810 Encounter for preprocedural cardiovascular examination

== ENCOUNTER 2017-07-23 09:30 | Observation (INO) | payer BC, OTHER ==
[2017-06-23 11:22] VITALS: BMI 29.0
--- NOTE | 2017-06-23 11:58 | PAT Medication Instructions ---
Service Date Jun 23, 2017. Current Home Medication List Calcium Carbonate-Cholecalcife (Caltrate 600+D), 2 TAB PO BID Cholecalciferol (Vitamin D3), 1 CAP PO QAM Rivaroxaban (Xarelto), 20 MG PO QAM Medication Instructions For Your Scheduled Surgery -Follow your surgeon's instructions for: Rivaroxaban (Xarelto), 20 MG PO QAM - Hold the following medications the morning of surgery: Cholecalciferol (Vitamin D3), 1 CAP PO QAM Calcium Carbonate-Cholecalcife (Caltrate 600+D), 2 TAB PO BID - Take the following medications as scheduled the night before surgery: Calcium Carbonate-Cholecalcife (Caltrate 600+D), 2 TAB PO BID If you have any questions please call us at [phone] or [phone] or [phone]
--- NOTE | 2017-06-24 14:40 | HISTORY & PHYSICAL EXAMINATION ---
DATE OF ADMISSION: 07/23/2017 CHIEF COMPLAINT: Impending femur fracture. HISTORY OF PRESENT ILLNESS: Ms. Hauser is a 71-year-old female who had a history of a spontaneous left femur fracture, earlier this year. The patient states she was walking and felt a pop, she then fell to the ground and was admitted for a left femur fracture. This was fixated with a trochanteric femoral nail. The patient has recent DEXA scan which is positive for significant osteoporosis. She has evidence of some bony changes on the right side and is now going to be admitted for a prophylactic nailing of the right femur. PAST MEDICAL HISTORY: Positive for DVT, PE with previous troch nail in February of 2017. She denies heart disease or diabetes. PAST SURGICAL HISTORY: Left trochanteric nail, cholecystectomy and varicose vein ligation. SOCIAL HISTORY: The patient denies alcohol or tobacco use. She lives in a 2-mercedes home. She lives alone and is retired. FAMILY HISTORY: Negative for DVT. MEDICATIONS: Oxycodone 5 mg p.r.n., iron supplement, Xarelto 10 mg daily, and vitamin D3. ALLERGIES: KEFLEX CAUSES ITCHING. REVIEW OF SYSTEMS: See HPI. Ten other systems reviewed, all negative. PHYSICAL EXAMINATION: VITAL SIGNS: Height 5 foot 2 inches, weight 158 pounds, BMI 29. GENERAL: This is a well-developed, well-nourished female, who is alert and oriented x3. Mood and affect are appropriate. HEENT: Normocephalic, atraumatic. Mucous membranes are moist and intact. NECK: Supple without lymphadenopathy. HEART: Regular rate and rhythm without murmurs, rubs or gallops. LUNGS: Clear to auscultation without wheezes or rhonchi. ABDOMEN: Soft and nontender. Bowel sounds are equal and active. EXTREMITIES: No ecchymosis, redness or warmth. Thigh and calf are soft and nontender. Range of motion of the hip is intact with minimal pain. She has no tenderness along the femur. She is neurovascularly intact with +5/5 strength. X-RAY EXAMINATION: AP and lateral views show fairly intact joint space of the right hip. She does have some cortical changes along the lateral cortex of her right femur. IMPRESSION: Osteoporosis with impending right femur fracture. PLAN: The patient is going to be admitted for a prophylactic right trochanteric nail. The patient is high risk for DVT given her previous history, she will stop her Xarelto preoperatively and resume postoperatively for DVT prophylaxis. The patient's imaging was reviewed again with Dr. Hatch today, he does not feel any additional imaging is necessary at this time and treatment will remain the same. PONCHO
[~2017-07-23] VITALS: Ht 157.5 cm; Wt 71.6 kg
[~2017-07-23 09:30] MED LIST changes: +ATROPINE SULFATE 0.1 MG/ML 5ML SYR IV PRN; +BUPIVACAINE 0.5 % 5 MG/1 ML PF 10ML VIAL ONE; +CLINDAMYCIN 600 MG/54 ML D5W IV SCH; +EpHEDrine SULFATE INJ 50 MG/ML AMP IV PRN; +HYDROmorphone INJ 1 MG/ML SYR IV PRN; +LABETALOL HCL IV 5 MG/ML 20ML IV PRN; +LACTATED RINGER'S 1000ML 1,000 ML IV SCH; +MEPERIDINE HCL 25 MG/ML CARP IV PRN; +ONDANSETRON INJ 2 MG/ML 2 ML VIAL IV PRN
[2017-07-23 10:15] VITALS: BP 155/86; PULSE 84; TEMP 36.7; O2SAT 96; Ht 157.5 cm; Wt 71.6 kg
[2017-07-23] MEDS ORDERED: MIDAZOLAM HCL 1 MG/ML 2ML VIAL ONE ×2 (10:33→10:34)
[2017-07-23] MEDS ORDERED: FENTANYL CITRATE INJ 50 MCG/1 ML 2 ML VIAL ONE ×2 (10:34→11:50)
[2017-07-23] MEDS ORDERED: DEXAMETHASONE SOD INJ 4 MG/ML VIAL ONE (12:06)
[2017-07-23] MEDS ORDERED: NEOSTIGMINE METHYLSULFATE 5 MG/5 ML SYR ONE (12:06)
[2017-07-23] MEDS ORDERED: ROCURONIUM BROMIDE 10 MG/ML 5 ML VIAL IV ONE (12:06)
[2017-07-23] MEDS ORDERED: GLYCOPYRROLATE INJ 0.2 MG/ML VIAL ONE (12:06)
[2017-07-23] MEDS ORDERED: ONDANSETRON INJ 2 MG/ML 2 ML VIAL ONE (12:06)
[2017-07-23] MEDS ORDERED: PROPOFOL IV EMULSION 10 MG/ML 20 ML VIAL IV ONE (12:06)
--- NOTE | 2017-07-23 12:12 | [facility] Post Operative Brief Note ---
Immediate Operative Summary Operative Date Jul 23, 2017. Pre-Operative Diagnosis Impending Right Femur Fracture Post-Operative Diagnosis Impending Right Femur Fracture Procedure(s) Performed Right Femur Prosthetic Nailing Surgeon Dr. Hatch Patient Insurance Clerk Surgeon(s) Alvin Diallo PA-C Estimated Blood Loss 20 cc Findings none Specimens none per surgeon Complication(s) None Disposition Recovery Room / PACU
[2017-07-23] MEDS ORDERED: BISACODYL 10 MG SUPP PR PRN (12:30)
[2017-07-23] MEDS ORDERED: ONDANSETRON INJ 2 MG/ML 2 ML VIAL IV PRN (12:30)
[2017-07-23] MEDS ORDERED: ALUMINUM/MAGNESIUM/SIMETH (MAALOX MAX) 30 ML UDC PO PRN (12:30)
[2017-07-23] MEDS ORDERED: MAGNESIUM HYDROXIDE SUSP 30 ML UDC PO PRN (12:30)
[2017-07-23] MEDS ORDERED: METOCLOPRAMIDE HCL INJ 5 MG/ML 2 ML VIAL IV PRN (12:30)
[2017-07-23] MEDS ORDERED: MoRPHine SULFATE 2 MG/ML CARP IV PRN (12:30)
[2017-07-23] MEDS ORDERED: ZOLPIDEM TARTRATE 5 MG TAB PO PRN (12:30)
[2017-07-23] MEDS: FENTANYL CITRATE INJ 50 MCG/1 ML 2 ML VIAL IV PRN ×5 (12:48→13:20)
[2017-07-23] MEDS ORDERED: MoRPHine SULFATE 4 MG/ML 1 ML CARP\\VIAL IV PRN (13:00)
[2017-07-23 13:31] LABS: HEMATOCRIT 37.3 % (37-47); HEMOGLOBIN 12.1 g/dL (12.0-16.0)
--- NOTE | 2017-07-23 13:44 | Anesthesiology Progress Note ---
Anesthesia Post Op Note Date & Time Jul 23, 2017 at 13:44 Vital Signs Pain Intensity: 4 Vital Signs Past 12 Hours Date Time Temp Pulse Resp B/P (MAP) Pulse Ox O2 Delivery O2 Flow Rate FiO2 07/23/17 13:25 61 17 142/64 100 Nasal Cannula 2 07/23/17 13:15 59 16 130/73 100 Nasal Cannula 2 07/23/17 13:05 65 21 125/99 100 Nasal Cannula 2 07/23/17 12:55 57 25 152/66 100 Oxymask 10 07/23/17 12:45 56 24 124/86 100 Oxymask 10 07/23/17 12:36 36.1 64 23 133/77 100 Oxymask 10 07/23/17 10:15 36.7 84 20 155/86 (109) 96 Room Air Notes Mental Status: alert / awake / arousable, participated in evaluation Pt Amnestic to Procedure: Yes Nausea / Vomiting: adequately controlled Pain: adequately controlled Airway Patency, RR, SpO2: stable & adequate BP & HR: stable & adequate Hydration State: stable & adequate Anesthetic Complications: no major complications apparent
--- NOTE | 2017-07-23 13:54 | DIAGNOSTIC IMAGING REPORT ---
R FEMUR 2 VIEWS ROUTINE CLINICAL HISTORY: post-op troch nail COMPARISON: None. DISCUSSION: Evidence for placement of a right femoral armaan with a trochanteric nailing. Alignment is anatomic. Expected soft tissue postoperative change. IMPRESSION: Anatomic alignment status post right trochanteric nailing and femoral armaan placement The above report was generated using voice recognition software. It may contain grammatical, syntax or spelling errors. Electronically signed by: Efra Dsouza M.D. 07/23/2017 1:53 PM Dictated Date/Time: 07/23/2017 1:52 PM
--- NOTE | 2017-07-23 14:01 | OPERATIVE REPORT ---
DATE OF OPERATION: 07/23/2017 PREOPERATIVE DIAGNOSIS: Impending fracture, right femur. POSTOPERATIVE DIAGNOSIS: Same. PROCEDURE: Prophylactic troch nailing right femur. SURGEON: Dr. Hatch. TRUCK DRIVER TEAMSTER: Alvin Diallo PA-C. ANESTHESIA: Spinal. COMPLICATIONS: None. DESCRIPTION OF PROCEDURE: Following induction of spinal anesthesia, the patient was placed on the fracture table and the right hip was prepped and draped in usual sterile manner. Fluoroscopic guidance was used to locate to the trochanter. A longitudinal incision was made from the tip proximally. Subcutaneous tissue was sharply dissected. Electrocautery was used for hemostasis. Fascia was incised. The tip of the trochanter was identified and a drill tipped wire was used to gain access to the femoral canal. This was overdrilled using the 17 mm drill and a beaded tipped guidewire was placed. A 12 reamer was passed by the expansile lesion and it passed easily. A 160 x 11 mm troch nail was impacted into position. Once it reached the appropriate level proximal fixation with the helical blade 90 mm in length was carried out. The proximal blade was locked after removal of the beaded tipped guidewire. No distal fixation was deemed necessary. The wound was irrigated and closed with #1 Vicryl, 2-0 Dexon and perlita. Sterile dressing of Adaptic, 4x4s, ABDs and foam tape was applied. The patient tolerated the procedure well. I attest to the content of the Intraoperative Record and any orders documented therein. Any exception s are noted below.
--- NOTE | 2017-07-23 14:31 | DIAGNOSTIC IMAGING REPORT ---
R FEMUR 2 VIEWS ROUTINE CLINICAL HISTORY: Right femur prosthetic nailing COMPARISON: None. DISCUSSION: Image intensifier was used for right hip nailing and intertrochanteric armaan placement procedure. IMPRESSION: Image intensifier used for right hip nailing an intertrochanteric armaan placement. The above report was generated using voice recognition software. It may contain grammatical, syntax or spelling errors. Electronically signed by: Efra Dsouza M.D. 07/23/2017 2:30 PM Dictated Date/Time: 07/23/2017 2:29 PM
[2017-07-23] MEDS ORDERED: IV FLUIDS COMPLETED PRN (15:15)
[2017-07-23 15:30] VITALS: BP 143/81; PULSE 65; TEMP 36.4; O2SAT 98
[2017-07-23 16:00] VITALS: BP 143/83; PULSE 78; TEMP 36.6; O2SAT 97
[2017-07-23 16:51] VITALS: BP 146/82; PULSE 71; TEMP 36.6; O2SAT 97
[2017-07-23] MEDS: D5W AND 1/2NSS + 20MEQ KCL 1,000 ML IV SCH (17:07)
[2017-07-23] MEDS: ACETAMINOPHEN 500 MG TAB PO SCH ×2 (17:07→22:00)
[2017-07-23] MEDS: FERROUS GLUCONATE 324 MG TAB PO SCH (18:12)
[2017-07-23] MEDS: OXYCODONE HCL IR 5 MG TAB (IMMEDIATE RELEASE) PO PRN ×2 (18:13→22:11)
[2017-07-23 18:52] VITALS: BP 126/79; PULSE 72; TEMP 36.8; O2SAT 97
[2017-07-23] MEDS: CLINDAMYCIN IV 600 MG in DEXTROSE 5% 50ML 50 ML IV SCH (21:02)
[2017-07-23 23:04] VITALS: BP 102/63; PULSE 66; TEMP 36.9; O2SAT 95
[2017-07-24] MEDS: D5W AND 1/2NSS + 20MEQ KCL 1,000 ML IV SCH (02:42)
[2017-07-24 03:05] VITALS: BP 127/78; PULSE 68; TEMP 36.7; O2SAT 96
[2017-07-24] MEDS: CLINDAMYCIN IV 600 MG in DEXTROSE 5% 50ML 50 ML IV SCH (04:42)
[2017-07-24] MEDS: ACETAMINOPHEN 500 MG TAB PO SCH (04:43)
[2017-07-24 05:19] LABS: HEMATOCRIT 32.7 % (37-47); HEMOGLOBIN 10.8 g/dL (12.0-16.0); MEAN CELL VOLUME 86.7 fL (80-100); MEAN CORPUSCULAR HEMOGLOBIN 28.6 pg (25-34); MEAN PLATELET VOLUME 9.2 fL (7.4-10.4); PLATELET COUNT 307 K/uL (130-400); RED CELL DISTRIBUTION WIDTH CV 14.3 % (11.5-14.5); RED CELL DISTRIBUTION WIDTH SD 44.9 fL (36.4-46.3)
[2017-07-24 05:57] LABS: CALCIUM 8.3 mg/dl (8.5-10.1); CREATININE 1.03 mg/dl (0.60-1.20); POTASSIUM 4.6 mmol/L (3.5-5.1)
--- NOTE | 2017-07-24 07:50 | Orthopedic Progress Note ---
Orthopedic Progress Note Date of Service Jul 24, 2017. Subjective Post OP Day: 1 Reports: feeling well Objective N/V intact, dressing C/D/I, toes mobile Date Time Temp Pulse Resp B/P (MAP) Pulse Ox O2 Delivery O2 Flow Rate FiO2 07/24/17 03:05 36.7 68 18 127/78 (94) 96 Room Air 07/23/17 23:30 Room Air 07/23/17 23:04 36.9 66 18 102/63 (76) 95 Room Air 07/23/17 18:52 36.8 72 16 126/79 (95) 97 Room Air 07/23/17 16:51 36.6 71 16 146/82 (103) 97 Room Air 07/23/17 16:00 36.6 78 16 143/83 (103) 97 Room Air 07/23/17 15:30 36.4 65 16 143/81 (101) 98 Room Air 07/23/17 15:30 Room Air 07/23/17 15:30 98 Room Air 07/23/17 15:15 66 14 142/62 97 Nasal Cannula 2 07/23/17 15:00 52 14 149/65 100 Nasal Cannula 2 07/23/17 14:45 52 14 140/62 100 Nasal Cannula 2 07/23/17 14:30 51 12 140/59 100 Nasal Cannula 2 07/23/17 14:15 53 17 146/61 100 Nasal Cannula 2 07/23/17 14:00 51 15 141/66 100 Nasal Cannula 2 07/23/17 13:45 36.4 73 14 140/76 100 Nasal Cannula 2 07/23/17 13:35 76 17 115/73 98 Nasal Cannula 2 07/23/17 13:25 61 17 142/64 100 Nasal Cannula 2 07/23/17 13:15 59 16 130/73 100 Nasal Cannula 2 07/23/17 13:05 65 21 125/99 100 Nasal Cannula 2 07/23/17 12:55 57 25 152/66 100 Oxymask 10 07/23/17 12:45 56 24 124/86 100 Oxymask 10 07/23/17 12:36 36.1 64 23 133/77 100 Oxymask 10 07/23/17 10:15 36.7 84 20 155/86 (109) 96 Room Air Laboratory Results 24 Hours: Test 07/23/17 13:13 07/24/17 04:52 Hematocrit 37.3 % 32.7 % Hemoglobin 12.1 g/dL 10.8 g/dL Assessment & Plan Assessment: 71 yo female stable POD #1 s/p prophylactic right troch nail Plan: 1. Med management- 2. DVT prophylaxis- resume Xarelto today, SCDs 3. PT/OT 4. D/C planning- home today
--- NOTE | 2017-07-24 07:51 | Anesthesiology Progress Note ---
Anesthesia Post Op Note Date & Time Jul 24, 2017 at 07:50 Vital Signs Pain Intensity: 0.0 Vital Signs Past 12 Hours Date Time Temp Pulse Resp B/P (MAP) Pulse Ox O2 Delivery O2 Flow Rate FiO2 07/24/17 03:05 36.7 68 18 127/78 (94) 96 Room Air 07/23/17 23:30 Room Air 07/23/17 23:04 36.9 66 18 102/63 (76) 95 Room Air Notes Mental Status: alert / awake / arousable, participated in evaluation Pt Amnestic to Procedure: Yes Nausea / Vomiting: adequately controlled Pain: adequately controlled Airway Patency, RR, SpO2: stable & adequate BP & HR: stable & adequate Hydration State: stable & adequate Anesthetic Complications: no major complications apparent
[2017-07-24] MEDS ORDERED: ULT50X PO (07:52)
[2017-07-24] MEDS ORDERED: ACET-24 PO (07:52)
[2017-07-24] MEDS ORDERED: RXC5 PO (07:52)
[2017-07-24 07:55] VITALS: BP 127/84; PULSE 73; TEMP 36.7; O2SAT 98
--- NOTE | 2017-07-24 07:56 | Discharge Instructions ---
Discharge Instructions Date of Service Jul 24, 2017. Admission Reason for Admission: Right Femur Unspecified Intracapsular Fracture Discharge Discharge Diagnosis / Problem: Right femur prophylactic nailing Discharge Goals Goal(s): Decrease discomfort, Improve function Activity Recommendations Activity Limitations: as noted below Weightbearing Status: Right weightbearing (as tolerated) . Instructions / Follow-Up Instructions / Follow-Up Weightbearing as tolerated right lower extremity with walker/cane. Maintain dressing x 48 hours then may remove and shower. Apply light dressing as necessary. Frequent ice to hip/leg as needed. Current Hospital Diet Patient's current hospital diet: Regular Diet Discharge Diet Recommended Diet: Regular Diet Procedures Procedures Performed: Right Femur Prosthetic Nailing Pending Studies Studies pending at discharge: no Medical Emergencies . Who to Call and When: Medical Emergencies: If at any time you feel your situation is an emergency, please call 911 immediately. . Non-Emergent Contact Non-Emergency issues call your: Surgeon Call Non-Emergent contact if: temperature is above 101.5, your pain is not controlled, wound has increased drainage, wound has increased redness . "Provider Documentation" section prepared by Alvin Diallo PA-C. . VTE Core Measure Inpt VTE Proph given/why not?: Other Anticoagulation (Xarelto), T.E.DFrandy Stockings, SCD's [place] Drug Monitoring Program Search Results: patient reviewed within database, no issues identified
[2017-07-24] MEDS: OXYCODONE HCL IR 5 MG TAB (IMMEDIATE RELEASE) PO PRN ×2 (08:12→12:15)
[2017-07-24] MEDS ORDERED: MULTIVITAMIN TAB PO SCH (09:00)
[2017-07-24] MEDS ORDERED: PANTOprazole SOD 40 MG TAB PO SCH (09:00)
[2017-07-24] MEDS: FERROUS GLUCONATE 324 MG TAB PO SCH ×2 (09:20→12:16)
[2017-07-24 10:10] VITALS: BP 127/84; PULSE 73; TEMP 36.7; O2SAT 98
[2017-07-24 11:10] VITALS: BP 109/71; PULSE 67; TEMP 36.7; O2SAT 96
[2017-07-24] MEDS ORDERED: RIVAROXABAN 20 MG TAB PO SCH (12:00)
[2017-07-24 12:37] VITALS: BP 109/71; PULSE 67; TEMP 36.7; O2SAT 96
--- NOTE | 2017-07-28 11:24 | DISCHARGE SUMMARY ---
CHIEF COMPLAINT: Right thigh pain. Please see complete history and physical examination. HOSPITAL COURSE: The patient underwent prophylactic IM nailing of her right femur secondary to pending femur fracture. She tolerated the procedure well and was discharged to recovery room in stable condition. Her postop course was relatively uneventful. Her postoperative pain was reasonably well controlled with a combination of spinal anesthesia, IV, and oral pain medications. She was started back on her regular Xarelto use postoperatively for DVT prophylaxis. She also utilized BRITTON stockings and SCDs for additional prophylaxis. Her H&H was stable and did not require a transfusion. Her surgical dressing will remain in place for approximately 48 hours and that may be discontinued and the patient may shower at home. She may be weightbearing as tolerated, right lower extremity with a walker. She was discharged home on postoperative day 1. She will follow up in our office in approximately 10-14 days for initial postop evaluation.
== END 2017-07-24 14:04 | disposition home or self-care (01) ==
LOC: C.ACU 09:30 → C.3E 10:45 → ENRESERV 15:14
DX: Z40.8 Encounter for other prophylactic surgery (principal); M81.0 Age-related osteoporosis without current pathological fracture

== ENCOUNTER → 2018-02-04 | Outpatient (CLI) | payer BC ==
[~2018-02-04] MED LIST changes: +ACET-24 PO; -ATROPINE SULFATE 0.1 MG/ML 5ML SYR IV PRN; -BUPIVACAINE 0.5 % 5 MG/1 ML PF 10ML VIAL ONE; -CLINDAMYCIN 600 MG/54 ML D5W IV SCH; -EpHEDrine SULFATE INJ 50 MG/ML AMP IV PRN; -HYDROmorphone INJ 1 MG/ML SYR IV PRN; -LABETALOL HCL IV 5 MG/ML 20ML IV PRN; -LACTATED RINGER'S 1000ML 1,000 ML IV SCH; -MEPERIDINE HCL 25 MG/ML CARP IV PRN; -ONDANSETRON INJ 2 MG/ML 2 ML VIAL IV PRN; +RXC5 PO; +ULT50X PO
--- NOTE | 2018-02-04 14:58 | MAMMOGRAPHY REPORT ---
BILATERAL DIGITAL SCREENING MAMMOGRAM TOMOSYNTHESIS WITH CAD: 02/04/2018 CLINICAL HISTORY: Routine screening. Patient has no complaints. TECHNIQUE: The study was acquired using full field digital technology and interpreted from soft copy. Breast tomosynthesis in addition to standard 2D mammography was performed. Current study was also ev aluated with a Computer Aided Detection (CAD) system. COMPARISON: Comparison is made to exams dated: 12/20/2015 mammogram, 12/14/2014 mammogram, 12/08/2013 ma mmogram, 11/25/2012 mammogram, 11/20/2011 mammogram, and 11/07/2010 mammogram - [facility] ter. BREAST COMPOSITION: There are scattered areas of fibroglandular density in both breasts. FINDINGS: No suspicious masses, calcifications, or areas of architectural distortion are noted in either breast . There has been no significant interval change compared to prior exams. IMPRESSION: ACR BI-RADS CATEGORY 1: NEGATIVE There is no mammographic evidence of malignancy. A 1 year screening mammogram is recommended.( 019) The patient will receive written notification of the results. Some breast cancers are not detected with mammography. A negative mammographic report should not jose y biopsy if a clinically suggestive mass is present. Trinh Monaco M.D. ah/:02/04/2018 07:42:20 Ed Manager: RT Marti(Robert)(M), [facility] letter sent: Normal 1/2 BI-RADS Code: ACR BI-RADS Category 1: Negative
== END | disposition home or self-care (01) ==
LOC: C.MAMM 07:10
PROVIDERS: ATTEND Family Medicine
DX: Z12.31 Encounter for screening mammogram for malignant neoplasm of breast (principal)

== ENCOUNTER 2024-07-16 16:47 | Observation (INO) ==
--- OUTSIDE RECORDS SUMMARY | 2024-07-16 16:50 | External Medical Summary | Summary of Care ---
Author Name Unknown Organization [facility] Address [address] [place] [address] Phone [phone] Care Team Providers Care Cam Maker Name Role Phone Yazmin Regan PA-C Primary Care Provider +1- [phone] Reason for Visit * Reason Onset Date Comments Follow Up 07/15/2024 Encounter Details Date Type Department Care Team (Late st Contact Info) Description 07/15/2024 Telephone [place] [address] [place] [id number] Rajani Flores PA-C 400 [facility] [place] [address] Follow Up Allergies Active Allergy Reactions Criticality Noted Date Comments Adhesive Tape Other (Please comment) 07/23/2017 Cephalosporins 05/17/2001 keflex documented as of this encounter (statuses as of 07/15/2024) Medications Albuterol Sulfate HFA 108 (90 Base) MCG/ACT Inhalation Aerosol Solution Inhale 2 Puffs by mouth every 6 hours as needed for Wheezing. 18 g 06/17/2024 Active documented as of this encounter (statuses as of 07/15/2024) Active Problems Problem Noted Date Diagnosed Date Pulmonary embolism 11/08/2023 Special screening for malignant neoplasms, colon 11/28/2005 Overview (11/28/2005): Colonoscopy 11/24/05--diverticulosis, repeat 10 years Osteoporosis 06/14/2003 documented as of this encounter (statuses as of 07/15/2024) Resolved Problems Problem Noted Date Diagnosed Date Resolved Date ADVANCE DIRECTIVE INFORMATION 08/12/2005 05/09/2024 Overview (08/12/2005): No, Advance Directive brochure given to patient. documented as of this encounter (statuses as of 07/15/2024) Immunizations No known immunizationsdocumented as of this encounter Social History Tobacco Use Types Packs/Day Years Used Date Smoking Tobacco: Never Smokeless Tobacco: Never Alcohol Use Standard Drinks/Week Comments Yes 0 (1 standard drink = 0.6 oz pur e alcohol) rare PHQ-2 Answer Date Recorded PHQ-2 Score 0 09/21/2019 Hunger Vital Sign Answer Date Recorded Within the past 12 months, y ou worried that your food would run out before you got the money to buy more. Never true 02/06/20 22 Within the past 12 months, t he food you bought just didn't last and you didn't have money to get more. Never true 02/05/2022 Comments No Sex and Gender Information Value Date Recorded Sex Assigned at Female 02/05/2022 11:11 AM EDT Legal Sex Female 6:01 AM EST Gender Identity Female 02/05/2022 11:11 AM EDT Sexual Orientation Straight 02/05/2022 11 :11 AM EDT Occupation Industry Job Start Date Job End Date Not on file Not on file Not on file Not on file documented as of this encounter Miscellaneous Notes * Telephone Encounter - Kenyon Booth MED ASSIST - 07/15/2024 3:51 PM EST Patient made aware, verbalized understanding. * Telephone Encounter - Rajani Flores PA-C - 07/15/2024 3:44 PM EST Please let patient know I reviewed her exercise stress test. Test limited due to reduced exercise tolerance of exercising for only 3 minutes. Hypertensive blood pressure response. Echo with normal heart function, no valve disease. Recommend nuclear stress test, already scheduled for 07/21. documented in this encounter Plan of Treatment Upcoming Encounters Date Type Department Care Team (Late st Contact Info) Description 07/21/2024 7:15 AM EST Appointment Radiology, [facility] [address] [place] [address] 08/04/2024 8:20 AM EST Office Visit Family Practice, [place] [address] [place] [address] Yazmin Regan PA-C [address] [place] [address] 10/18/2024 8:00 AM EDT Office Visit Cardiology, [address] [place] [address] Rajani Flores PA-C [address] [place] [address] Health Maintenance Due Date Last Done Comments DTap/Tdap Vaccines (1 - Tdap) 09[birth year]18/1964 VITAMIN D LEVEL ONCE IN A LIFETIME-USE SMARTSET# 71218 1984 Pneumococcal Vaccine: 50+ Years (1 of 1 - PCV) 1994 Adult Wellness Visit 2010 Depression Screening 09/20/2020 09/21/2019 *BISPHONATE OR OTHER ACCEPTABLE MEDICATION NEEDED FOR OSTEOPOROSIS (REFER TO SMARTSET #1146) 04/25/2022 COVID-19 Vaccine ( season) 2024 Influenza Vaccine (FLU shot) (#1) 2024 DXA Scan Discontinued 04/10/2022, 04/06, 08/20/2004, Additional history exists HPV (Gardasil) Vaccine Aged Out No lo nger eligible based on patient's age to complete this topic Hepatitis B Vaccine Aged Out No longe r eligible based on patient's age to complete this topic MENINGOCOCCAL (MENACTRA/MENVEO) Aged Out No longer eligible based on patient's age to complete this topic Zoster Vaccines Discontinued documented as of this encounter Medical Devices Not on filedocumented as of this encounter Care Teams Cam Maker Relationship Specialty Start Date End Date Yazmin Regan PA-C [address] [facility] [place] [address] PCP - General Physician Sanitation Inspector 09/21/19 documented as of this encounter
--- OUTSIDE RECORDS SUMMARY | 2024-07-16 16:50 | External Medical Summary | Summary of Care ---
Author Name Unknown Organization [facility] Address [address] [facility] [place] [address] Phone [phone] Care Team Providers Care Cotton Picking Machine Operator Name Role Phone Yazmin Regan PA-C Primary Care Provider +1- [phone] Reason for Visit * Reason Onset Date Comments Follow Up 07/15/2024 Encounter Details Date Type Department Care Team (Late st Contact Info) Description 07/15/2024 Telephone [place] [address] [facility] [place] [phone] Rajani Flores PA-C 400 [facility] [place] [address] Follow Up Allergies Active [...] Description 07/21/2024 7:15 AM EST Appointment Radiology, [facility] 400 [place] [address] 08/04/2024 8:20 AM EST Office Visit Family Practice, [place] [address] [place] [address] Yazmin Regan PA-C [address] [place] [address] 10/18/2024 8:00 AM EDT Office Visit Cardiology, [address] [place] [address] Rajani Flores PA-C 400 [place] [address] Health Maintenance Due Date Last Done Comments DTap/Tdap Vaccines (1 - Tdap) 09[birth year]18/1964 VITAMIN D LEVEL ONCE IN A LIFETIME-USE SMARTSET# [id number] 1984 Pneumococcal Vaccine: 50+ Years (1 of [...] filedocumented as of this encounter Care Teams Cotton Picking Machine Operator Relationship Specialty Start Date End Date Yazmin Regan PA-C [address] [facility] [place] [address] PCP - General Physician Hull Sorter 09/21/19 documented as of this encounter
--- OUTSIDE RECORDS SUMMARY | 2024-07-16 16:51 | External Medical Summary | Summary of Care ---
Author Name Unknown Organization [facility] Address [address] [facility] [place] [address] Phone [phone] Care Team Providers Care Marble Coper Name Role Phone Yazmin Regan PA-C Primary Care Provider +1- [phone] Reason for Visit * Reason Onset Date Comments Precert Pending 07/07/2024 07/08/2024 STRESS ECHO IS NOT APPROVED FOR [facility] Encounter Details Date Type Department Care Team (Late st Contact Info) Description 07/07/2024 Telephone [facility] [address] [place] [address] Enrique Seymour MD [address] [place] [address] Precert Pending (07/08/2024 STRESS ECHO IS N... Allergies Active Allergy Reactions Criticality Noted Date Comments Adhesive Tape Other (Please comment) 07/23/2017 Cephalosporins 05/17/2001 keflex documented as of this encounter (statuses as of 07/07/2024) Medications loratadine (CLARITIN) 10 MG TabletIndication s:Acute allergic serous otitis media of both ears,Allergic rhinitis, unspecified seasonality, unspecified trigger,Allergic cough Take 1 Tab by mouth daily. 30 Tab 1 0 Active Additional Information Patient not taking.Reported on 07/01/2024 fluticasone (FLONASE) 50 MCG/ACT nasal sprayIndications :Acute allergic serous otitis media of both ears,Allergic rhinitis, unspecified seasonality, unspecified trigger Administer 2 Sprays into each nostril daily. 1 Inhaler 1 0 Active Additional Information Patient not taking.Reported on 07/01/2024 Albuterol Sulfate HFA 108 (90 Base) MCG/ACT Inhalation Aerosol Solution Inhale 2 Puffs by mouth every 6 hours as needed for Wheezing. 18 g 4 Active documented as of this encounter (statuses as of 07/07/2024) Active Problems Problem Noted Date Diagnosed Date Pulmonary embolism 11/08/2023 Special screening for malignant neoplasms, colon 11/28/2005 Overview (11/28/2005): Colonoscopy 11/24/05--diverticulosis, repeat 10 years Osteoporosis 06/14/2003 documented as of this encounter (statuses as of 07/07/2024) Resolved Problems Problem Noted Date Diagnosed Date Resolved Date ADVANCE DIRECTIVE INFORMATION 08/12/2005 05/09/2024 Overview (08/12/2005): No, Advance Directive brochure given to patient. documented as of this encounter (statuses as of 07/07/2024) Immunizations No known immunizationsdocumented as of this [...] encounter Miscellaneous Notes * Telephone Encounter - Alvin Elias CRNP - 07/07/2024 4:05 PM EST Will wait for Dr. Seymour to address this. * Telephone Encounter - Jaylyn Garrett OSA - 07/07/2024 3:09 PM EST Good Afternoon, I have been checking on the 11750 Exercise Stress Echo that is on the schedule for tomorrow at [facility] and per [employer]/JACOB the third democrat religious assistant that study is NOT APPROVED. I called and advised the patient to call and speak with you to see how to proceed. These cases can take 10-15 business days for the medical records analyst to review. Please advise on how you wish to proceed. Thank you, Jaylyn documented in this encounter Plan of Treatment Upcoming Encounters Date Type Department Care Team (Late st Contact Info) Description 07/08/2024 10:45 AM EST Appointment Cardiac Studies, [facility] [address] [place] [address] 08/04/2024 8:20 AM EST Office Visit [facility] [address] [place] [address] Yazmin Regan PA-C [address] [place] [address] 11/10/2024 10:00 AM EDT Office Visit Cardiology, [place] [address] [place] [address] Ashley Lofton MD [address] [facility] [place] [address] Health Maintenance Due Date Last Done Comments DTap/Tdap Vaccines (1 - Tdap) 09/18/1964 VITAMIN D LEVEL ONCE IN A LIFETIME-USE SMARTSET# [id number] 1984 Pneumococcal Vaccine: 50+ Years (1 of [...] filedocumented as of this encounter Care Teams Marble Coper Relationship Specialty Start Date End Date Yazmin Regan, PACherriC [address] [facility] [place] [address] PCP - General Physician Heel Lining Paster 09/21/19 documented as of this encounter
--- OUTSIDE RECORDS SUMMARY | 2024-07-16 16:51 | External Medical Summary | Summary of Care ---
Author Name Unknown Organization [facility] Address [address] [place] [address] Phone [phone] Care Team Providers Care Sneller Hand Name Role Phone Yazmin Regan PA-C Primary Care Provider +1- [phone] Reason for Visit * Reason Comments Outpatient Testing Encounter Details Date Type Department Care Team (Late st Contact Info) Description 07/11/2024 11:00 AM EST Laboratory Laboratory, [facility] [address] [place] [id number] [facility], Lab [address] [place] [address] CANTRELL (dyspnea on exertion) Allergies Active Allergy Reactions Criticality Noted Date Comments Adhesive Tape Other (Please comment) 07/23/2017 Cephalosporins 05/17/2001 keflex documented as of this encounter (statuses as of 07/11/2024) Medications loratadine (CLARITIN) 10 MG TabletIndication s:Acute [...] as of this encounter (statuses as of 07/11/2024) Active Problems Problem Noted Date Diagnosed Date Pulmonary embolism 11/08/2023 Special screening for malignant neoplasms, colon 11/28/2005 Overview (11/28/2005): Colonoscopy 11/24/05--diverticulosis, repeat 10 years Osteoporosis 06/14/2003 documented as of this encounter (statuses as of 07/11/2024) Resolved Problems Problem Noted Date Diagnosed Date Resolved Date ADVANCE DIRECTIVE INFORMATION 08/12/2005 05/09/2024 Overview (08/12/2005): No, Advance Directive brochure given to patient. documented as of this encounter (statuses as of 07/11/2024) Immunizations No known immunizationsdocumented as of this [...] on file documented as of this encounter Plan of Treatment Upcoming Encounters Date Type Department Care Team (Late st Contact Info) Description 07/21/2024 7:15 AM EST Appointment Radiology, [facility] [address] [facility] [place] [address] 08/04/2024 8:20 AM EST Office Visit Family Practice, [place] [address] [place] [address] Yazmin Regan PA-C [address] [place] [address] 10/18/2024 8:00 AM EDT [facility] [place] [address] [facility] [place] [address] Rajani Flores PA-C [address] [facility] [place] [address] Pending Results Name Type Priority Associated Diagnoses Date /Time LIPID PANEL WITH DIRECT LDL IF TG IS HIGH Lab Routine CANTRELL (dyspnea on exertion) 07/11/2024 10:31 AM EST TSH WITH FREE T4 IF INDICATED Lab Routine CANTRELL (dyspnea on exertion) 07/11/2024 10:31 AM EST Health Maintenance Due Date Last Done Comments DTap/Tdap Vaccines (1 - Tdap) 09/18/1963 VITAMIN D LEVEL ONCE IN A LIFETIME-USE SMARTSET# [id number] 1984 Pneumococcal Vaccine: 50+ Years (1 of [...] Not on filedocumented as of this encounter Visit Diagnoses Diagnosis CANTRELL (dyspnea on exertion) Other dyspnea and respiratory abnormality documented in this encounter Care Teams Sneller Hand Relationship Specialty Start Date End Date Yazmin Regan PA-C [address] [facility] [address] [place] [address] PCP - General Physician Hearing Health Technician 09/21/19 documented as of this encounter
--- OUTSIDE RECORDS SUMMARY | 2024-07-16 16:51 | External Medical Summary ---
Author Name Unknown Address Unknown Organization [id number]:LABORATORY [facility] - [address] [place] [address] Laboratory Report Ordering Provider Test Date Status ROBERT EMERY 07/11/2024 10:31:08 Final Observation Date Value Abnormality Reference (Units ) Status TSH 07/11/2024 10:31:08 4.85 Above high normal 0. 27-4.20 (uIU/mL) Final Performing Location LABORATORY [facility] - [address] [place] [address]
--- OUTSIDE RECORDS SUMMARY | 2024-07-16 16:51 | External Medical Summary ---
Author Name Unknown Address Unknown Organization [id number]:LABORATORY [facility] - [address] [place] [address] [address] [place] [address] Laboratory Report Ordering Provider Test Date Status FRANKI AGUILAR 06/17/2024 15:01:00 Final Rheumatoid factor at a level above 50 IU/mL may lead to an overestimation of the D-dimer level. A normal D-dimer result (<0.50 ug/mL FEU) has a negative predictive value of approximately 95% for the exclusion of acute pulmonary embolism (PE) or deep vein thrombosis when there is low or moderate pretest PE probability. Increased D-dimer values are abnormal but do not indicate a specific disease state and the D-dimer increase does not definitively correlate with clinical severity of disease. Observation Date Value Abnormality Reference (Units ) Status Fibrin D-dimer FEU [Mass/volume] in Platelet poor plasma by Immunoassay 06/17/2024 15:01:00 <0.27 <0.50 (ug/mL FEU) Final Performing Location LABORATORY [facility] - [address] [facility] [address] [place] [address]
--- OUTSIDE RECORDS SUMMARY | 2024-07-16 16:51 | External Medical Summary ---
Author Name Unknown Address Unknown Organization [id number]:LABORATORY [facility] - [address] [place] [address] Laboratory Report Ordering Provider Test Date Status FRANKI AGUILAR 06/17/2024 15:01:00 Final Collect NOW Observation Date Value Abnormality Reference (Units ) Status Troponin T 06/17/2024 15:01:00 43 Above high normal < =14 (ng/L) Final Performing Location LABORATORY [facility] - [address] [place] [address]
--- OUTSIDE RECORDS SUMMARY | 2024-07-16 16:51 | External Medical Summary ---
Author Name Unknown Address Unknown Organization [id number]:LABORATORY [facility] - [address] [facility] [place] [address] Laboratory Report Ordering Provider Test Date Status ROBERT EMERY 07/11/2024 10:31:08 Final Observation Date Value Abnormality Reference (Units ) Status Triglyceride 07/11/2024 10:31:08 65 <=174 ( mg/dL) Final Triglyceride Reference Range s (mg/dL):
<150 Acceptable
150-174 Borderline high
175-499 High
>=500 Very high Cholesterol 07/11/2024 10:31:08 187 <200 (mg /dL) Final Total Cholesterol Reference Ranges (mg/dL):
<200 Desirable
200-239 Borderline high
>=240 High HDL 07/11/2024 10:31:08 67 >49 (mg/dL ) Final HDL Cholesterol Reference Ra nges (mg/dL):
>=60 High (Desirable)
<50 Low (Undesirable) For Females
<40 Low (Undesirable) For Males NON-HDL CHOLESTEROL 07/11/2024 10:31:08 120 <=159 (mg/dL) Final Non-HDL Cholesterol Referenc e Range (mg/dL):
<100 Target level for high risk ASCVD patient
<130 Optimal for general population
130-159 Near optimal for general population
160-189 Borderline High
190-219 High
>=220 Very High LDL, (calculated) 07/11/2024 10:31:08 107 <= 129 (mg/dL) Final LDL Cholesterol Reference Ra nges (mg/dL):
<70 Target level for high risk ASCVD patient
<100 Optimal for general population
100-129 Near optimal for general population
130-159 Borderline high
160-189 High
>=190 Very high Performing Location LABORATORY [facility] - [address] [facility] [place] [address]
--- OUTSIDE RECORDS SUMMARY | 2024-07-16 16:51 | External Medical Summary | Summary of Care ---
Author Name Unknown Organization [facility] Address [address] [facility] [address] Phone [phone] Care Team Providers Care Calender Tender Name Role Phone Yazmin Regan PA-C Primary Care Provider +1- [phone] Reason for Referral * Precert (Within 10 days (routine)) - Pending Review Specialty Diagnoses / Procedures Referred By Contac t Referred To Contact Radiology Diagnoses CANTRELL (dyspnea on exertion) Procedures NM MYOCARD PERF IMG SPECT MULT STUDIES WITH PHARM INTERV Rajani Flores PA-C [address] [place] [address] Phone: tel: fax: Referral ID Status Reason Start Date Expiration Date Visits Requested Visits Authorized [id number] Pending Review Precert 07/12/[phone] Reason for Visit * Reason Comments NEW PATIENT * Evaluate & Treat - Unlimited Visits (Within 10 days (routine)) - Authorized Specialty Diagnoses / Procedures Referred By Contact Referred To Contact Cardiovascular Medicine / Cardiology Diagnoses Exertional dyspnea Aziza Costello PA-C [address] [place] [address] Phone: tel: fax: Referral ID Status Reason Start Date Expiration Date Visits Requested Visits Authorized [id number] Authorized Specialty Services Required 4 [phone] Encounter Details Date Type Department Care Team (Late st Contact Info) Description 07/11/2024 10:00 AM EST Office Visit [place] [address] [place] [address] Rajani Flores [facility] [address] [facility] [place] [address] CANTRELL (dyspnea on exertion)* Allergies Active Allergy Reactions Criticality Noted Date Comments Adhesive Tape Other (Please comment) 07/23/2017 Cephalosporins 05/17/2001 keflex documented as of this encounter (statuses as of 07/11/2024) Medications Albuterol Sulfate HFA 108 (90 Base) MCG/ACT Inhalation Aerosol Solution Inhale 2 Puffs by mouth every 6 hours as needed for Wheezing. 18 g 06/17/20 24 Active loratadine (CLARITIN) 10 MG TabletIndicatio ns:Acute allergic serous otitis media of both ears,Allergic rhinitis, unspecified seasonality, unspecified trigger,Allergi c cough Take 1 Tab by mouth daily. 30 Tab 1 09/21/19 20 025 Discontinued fluticasone (FLONASE) 50 MCG/ACT nasal sprayIndication s:Acute allergic serous otitis media of both ears,Allergic rhinitis, unspecified seasonality, unspecified trigger Administer 2 Sprays into each nostril daily. 1 Inhaler 1 09/21/19 20 025 Discontinued documented as of this encounter (statuses as [...] on file documented as of this encounter Last Filed Vital Signs Vital Sign Reading Time Taken Comments Blood Pressure 134/84 07/11/2024 9:52 AM EST Pulse 60 07/11/2024 9:52 AM EST Temperature - - Respiratory Rate - - Oxygen Saturation - - Inhaled Oxygen Concentration - - Weight 72.4 kg (159 lb 9.6 oz) 07/11/2024 9:52 A M EST Height 157.5 cm (5' 2") 07/11/2024 9:52 AM EST Body Mass Index 29.19 07/11/2024 9:52 AM EST documented in this encounter Patient Instructions * Patient Instructions* Rajani Flores PA-C - 07/11/2024 10:20 AM EST Check blood pressure and heart rate once daily for next week and call office with readings. [place] [facility] Nurse's number: [phone] documented in this encounter Progress Notes * Rajani Flores PA-C - 07/11/2024 9:49 AM EST [facility] New Cardiology Patient 07/11/2024 CC: exertional dyspnea History of Present Illness: Rohini Hauser is a 78 year old female with history of PE after femur fracture, osteoporosis, who presents as a new patient. Presented to [facility] ED 06/17/24 with shortness of breath, worse with exertion. BP 181/87, HR 109. EKG without acute ischemic changes. Troponin mildly elevated, but flat. D-dimer negative. Labs overall unremarkable. Referred to cardiology. Presents today accompanied by 2 daughters. States for past few years she has had worsening shortness of breath with exertion, seems to have acutely worsened this past fall. Now notes accompanied tightness in lower chest. Symptoms improve with rest. Has to take several breaks when walking around theblock. Last week woke up in middle of night with tingling in left arm, fingers, leg. Notes after stress test she had tingling on left side of head. She states she did less than 6 minutes on treadmilldue to shortness of breath. Blood pressure was elevated, today in 160s systolic at home. Denies lightheadedness, dizziness. Has noticed edema at end of day. Cough present for months. Has not noticed any significant changes in weight. Drinks water, coffee, tea. Does not note excessive sodium intake, had ham last night. Nonsmoker, denies alcohol and illicit drug use. Notes stress at home, lives with one of her daughters. Has not had routine care with PCP in many years. Family history: Maternal aunt- , open heart surgery Brother- , cancer, CHF REVIEW OF SYSTEMS: See HPI for pertinent positives. All others negative other than those noted in the HPI. CONSTITUTIONAL: No change in weight, No weakness, No fatigue and No fevers, No sweats or chills. PULMONARY: No cough, sputum, or hemoptysis, No wheezing, No shortness or breath and No recent change in breathing. CARDIOVASCULAR: No chest pain, +dyspnea on exertion, No edema, No palpitations and No syncope. GASTROINTESTINAL: No abdominal pain, No change in bowel habits, No significant heartburn, No nausea, No vomiting, No diarrhea, No constipation, No blood in stools or black tarry stools. No dysphagia. HEMATOLOGIC: No abnormal bleeding and No bruising. NEUROLOGICAL: Normal balance, No headaches and No weakness. Past Medical History: Patient Active Problem List Diagnosis Osteoporosis Special screening for malignant neoplasms, colon Pulmonary embolism (HCC) Past Surgical History: Procedure Laterality Date COLONOSCOPY, GI REFERRAL OP 11/24/2005 diverticulosis, [facility] Dr Chan, repeat 2016 MAMMOGRAM - BILATERAL 10/25/07 birad 2 MAMMOGRAM SCREENING-BILATERAL 2.10.05 benign findings, yearly mammograms appropriate, birad code 2 MAMMOGRAM SCREENING-BILATERAL 4.17.06 benign findings, yearly mammograms appropriate, birad code 2 MAMMOGRAM SCREENING-BILATERAL 04.18.07 benign findings, yearly mammograms appropriate, birad code 2 MAMMOGRAM SCREENING-BILATERAL 10/26/2008 birad 2, repeat in one year PROCTOSIGMOIDOSCOPY DX 1998 Sigmoidoscopy REMOVE GALLBLADDER 1966 Cholecystectomy VEIN ABLATION EXTREMITY,ENDOVEN,1ST 09/09 Dr. Bernardo at [place] Family History: Family History Problem Relation Name Age of Onset Cancer Grandfather (Maternal) colon, age 70 Diabetes Grandfather (Paternal) Other (AML) Mother Cancer Father prostate ca Cancer Aunt (Unspecified) GI, age 60 Cancer Aunt (Unspecified) unknown age 72 Heart Disorder Aunt (Unspecified) Heart Disorder Uncle (Unspecified) Cancer Uncle (Unspecified) colon, age 50's 2 uncles Cancer Aunt (Unspecified) colon age 70 Cancer Uncle (Unspecified) unknown Social History: Social History Socioeconomic History Marital status: Spouse name: Not on file Number of children: Not on file Years of education: Not on file Highest education level: Not on file 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 [place] Tobacco Use Smoking status: Never Smokeless tobacco: Never Vaping Use Vaping status: Never Used Substance and Sexual Activity Alcohol use: Yes Comment: rare Drug use: No Sexual activity: Not Currently Other Topics Concern Not on file Social History Narrative Not on file Social Needs Financial Resource Strain: Not on file Food Insecurity: No Food Insecurity (02/05/2022) Hunger Vital Sign Worried About Running Out of Food in the Last Year: Never true Ran Out of Food in the Last Year: Never true Transportation Needs: Not on file Social Connections: Not on file Housing Stability: Not on file Allergies: Adhesive tape and Cephalosporins Medications: Current Outpatient Medications Medication Sig Dispense Refill loratadine (CLARITIN) 10 MG Tablet Take 1 Tab by mouth daily. (Patient not taking: Reported on 07/01/2024) 30 Tab 1 fluticasone (FLONASE) 50 MCG/ACT nasal spray Administer 2 Sprays into each nostril daily. (Patient not taking: Reported on 07/01/2024) 1 Inhaler 1 Albuterol Sulfate HFA 108 (90 Base) MCG/ACT Inhalation Aerosol Solution Inhale 2 Puffs by mouth every 6 hours as needed for Wheezing. 18 g 0 No current facility-administered medications for this visit. PHYSICAL EXAMINATION: BP 134/84 | Pulse 60 | Ht 1.575 m (5' 2") | Wt 72.4 kg (159 lb 9.6 oz) | BMI 29.19 kg/m | BSA 1.78 m Wt Readings from Last 3 Encounters: 07/11/24 72.4 kg (159 lb 9.6 oz) 07/01/24 72.1 kg (158 lb 14.4 oz) 06/17/24 72.2 kg (159 lb 3.2 oz) General: No acute distress. A+Ox3. HEENT: Normocephalic. Atraumatic. PERRL. EOMI. Conjunctiva and sclera clear. NECK: No carotid bruits. No JVD. Carotid upstrokes are brisk. Heart: RRR. S1 and S2 noted. No murmur. No rubs or gallops. PMI non displaced. Lungs: Clear to auscultation. No wheezes.No rhonchi. No rales. Abdomen: Normal bowel sounds. Soft. Nontender. No masses or organomegaly. No abdominal bruits. Extremities: Trace edema. No clubbing or cyanosis. Pulses: radial=2/4, posterior tibial=2/4, dorsalis pedis = 2/4. NEURO: No focal deficits. PSYCH: Appropriate affect and insight. DATA Labs & Imaging Reviewed Below: EKG 06/17/24 Sinus tachycardia, RBBB, LVH, 102 bpm Possible lateral infarct IMPRESSION: 78 year old female CANTRELL RECOMMENDATIONS/PLAN: - presents due to worsening CANTRELL - EKG without acute ischemic changes, BNP normal, labs overall unremarkable - exercise stress echo read pending, patient states she could only exercise for a few minutes due to shortness of breath, if this is the case the results will likely be nondiagnostic, likely will need nuclear stress test - fasting lipid panel and TSH ordered - heart rate and BP well controlled today on exam - left sided tingling may be due to elevated BP, recommend patient record BP at home once daily fornext week and call office with readings - pending results of testing, could consider low dose diuretic, no significant signs of hypervolemia on exam, weight stable Disposition: F/u in 3 months The patient agrees to the above plan and will call with additional questions or concerns. All questions were answered to the patients satisfaction. ER with all emergencies advised. Rajani Flores PA-C Cardiology, [address] [place] [address] I spent a total of 55 minutes on the date of service in preparation, delivery, and documentation ofthe care provided to Rohini Hauser excluding any time spent in the performance of separately billed services. This chart was completed in part utilizing [employer] Speech Voice Recognition Software. Grammatical errors, random word insertions, prounoun errors, and incomplete sentences are an occasional consequence of this system due to software limitations, ambient noise, and hardware issues. Any formal questions or concerns about the content, text, or information contained within the body of this dictation should be directly addressed to the provider for clarification. documented in this encounter Nursing Notes * Shanda Vallejo LPN - 07/11/2024 9:52 AM EST Patient was identified by name and date of . Name: Rohini Hauser Date of : (1945). Examination Room: 5 Reason for Visit: Chief Complaint Patient presents with NEW PATIENT Interim Hospitalization(s): NO Interim Emergency room visit(s): NO Chest Pain: No SOB: Yes, on exertion x 3-4 mo Problems/Concerns: Yes, pain down L side of body off and on Medications reviewed and are up to date via: Patient's memory Would you like to sign up for [facility]? DECLINES Patient was instructed to not get up on the exam table/exam chair until directed and assisted by their provider; patient is to remain seated in the chair/ wheelchair/ exam table/ exam chair for fall prevention and safety reasons. Patient is aware to have assistance to step down off exam table/exam chair with personnel. Patient voiced full comprehension of instructions. Shanda Vallejo LPN 9:52 AM 07/11/2024 documented in this encounter Plan of Treatment Upcoming Encounters Date Type Department Care Team (Late st Contact Info) Description 07/21/2024 7:15 AM EST Appointment Radiology, [facility] [address] [place] [address] 08/04/2024 8:20 AM EST Office Visit [facility] [address] [place] [address] Yazmin Regan PA-C [address] [place] [address] 10/18/2024 8:00 AM EDT [facility] [address] [place] [address] Rajani Flores PA-C [address] [facility] [place] [address] Pending Results Name Type Priority Associated Diagnoses Date /Time LIPID PANEL WITH DIRECT LDL IF TG IS HIGH Lab Routine CANTRELL (dyspnea on exertion) 07/11/2024 10:31 AM EST TSH WITH FREE T4 IF INDICATED Lab Routine CANTRELL (dyspnea on exertion) 07/11/2024 10:31 AM EST Scheduled Orders Name Type Priority Associated Diagnoses Orde r Schedule LIPID PANEL WITH DIRECT LDL IF TG IS HIGH Lab Routine CANTRELL (dyspnea on exertion) Expected: 07/12/2024, Expires: 07/11/2025 TSH WITH FREE T4 IF INDICATED Lab Routine CANTRELL (dyspnea on exertion) Expected: 07/11/2024, Expires: 07/11/2025 NM MYOCARD PERF IMG SPECT MULT STUDIES WITH PHARM INTERV Cardiology Routine CANTRELL (dyspnea on exertion) Expected: 07/12/2024, Expires: 08/11/2025 Health Maintenance Due Date Last Done Comments DTap/Tdap Vaccines (1 - Tdap) 09/18/1963 VITAMIN D LEVEL ONCE IN A LIFETIME-USE SMARTSET# 22159 1984 Pneumococcal Vaccine: 50+ Years (1 of 1 - PCV) 1994 Adult Wellness Visit 2010 Depression Screening 09/20/2020 09/21/2019 *BISPHONATE OR OTHER ACCEPTABLE MEDICATION NEEDED FOR OSTEOPOROSIS (REFER TO SMARTSET #1146) 04/25/2022 COVID-19 Vaccine ( - 2023- season) 2024 Influenza Vaccine (FLU shot) (#1) [...] encounter Visit Diagnoses Diagnosis CANTRELL (dyspnea on exertion)- Primary Other dyspnea and respiratory abnormality documented in this encounter Care Teams Calender Tender Relationship Specialty Start Date End Date Yazmin Regan PA-C [address] [facility] [address] [place] [address] PCP - General Physician Machine Heddle Cleaner 09/21/19 documented as of this encounter
--- OUTSIDE RECORDS SUMMARY | 2024-07-16 16:51 | External Medical Summary | Summary of Care ---
Author Name Unknown Organization [facility] Address [address] [place] [address] Phone [phone] Care Team Providers Care Chief Of Anesthesiology Name Role Phone Yazmin Regan PA-C Primary Care Provider +1- [phone] Encounter Details Date Type Department Care Team (Late st Contact Info) Description 04/25/2024 Orders Only [place] [address] [address] [place], [place] [phone] Yazmin Regan PA-C [facility] [address] [place], [place] [phone] Allergies Active Allergy Reactions Criticality Noted Date Comments Adhesive Tape Other (Please comment) 07/23/2017 Cephalosporins 05/17/2001 keflex documented as of this encounter (statuses as of 04/25/2024) Medications Medication Sig Dispensed Refills Start Date End Date Status loratadine (CLARITIN) 10 MG TabletIndications:Ac clara allergic serous otitis media of both ears,Allergic rhinitis, unspecified seasonality, unspecified trigger,Allergic cough Take 1 Tab by mouth daily. 30 Tab 1 09/21/2019 Active fluticasone (FLONASE) 50 MCG/ACT nasal sprayIndications:Acu te allergic serous otitis media of both ears,Allergic rhinitis, unspecified seasonality, unspecified trigger Administer 2 Sprays into each nostril daily. 1 Inhaler 1 09/21/2019 Active documented as of this encounter (statuses as of 04/25/2024) Active Problems Problem Noted Date Diagnosed Date Pulmonary embolism 11/08/2023 Special screening for malignant neoplasms, colon 11/28/2005 Overview: Colonoscopy 11/24/05--diverticulosis, repeat 10 years ADVANCE DIRECTIVE INFORMATION 08/12/2005 Overview: No, Advance Directive brochure given to patient. Osteoporosis 06/14/2003 documented as of this encounter (statuses as of 04/25/2024) Immunizations No known immunizationsdocumented as of this [...] money to get more. Never true 02/05/2022 Utilities Answer Date Recorded Do you have trouble paying y our heating, water, or electric bill? (Adult - for ages 18 years and over) Not on file 12/22/2023 Is your family able to pay t he heat, water, or electric bill? (Household - for ages 0-17 years) Not on file 12/22/2023 Does your family have access to good internet? (Household - for ages 0-17 years) Not on file 12/22/2023 Social Connections Answer Date Recorded How often do you feel lonely or isolated from those around you? (Adult - for ages 18 years and over) Not on file 12/22/2023 Sex and Gender Information Value Date Recorded Sex Assigned at Female 02/05/2022 11:11 AM EDT Gender Identity Female 02/05/2022 11:11 AM EDT Sexual Orientation Straight 02/05/2022 11 :11 AM EDT Job Start Date Occupation Industry Not on file Not on file Not on file documented as of this encounter Plan of Treatment Health Maintenance Due Date Last Done Comments DTap/Tdap Vaccines (1 - Tdap) 09[birth year]18/1964 VITAMIN D LEVEL ONCE IN A LIFETIME-USE SMARTSET# 65220 1984 Pneumococcal Vaccine: 65+ Years (1 of 1 - PCV) 2009 Adult Wellness Visit 2010 Depression Screening 09/20/2020 [...] Not on filedocumented as of this encounter Procedures Procedure Name Priority Date/Time Associated Diagnosis Comments MAMMOGRAM SCREENING BILATERAL Routine 04/22/2024 documented in this encounter Results * MAMMOGRAM SCREENING BILATERAL (04/22/2024) Anatomical Region Laterality Modality Breast Bilateral Other 04/22/2024 Enrique Seymour MD RAD MAMMOGRAPH Y documented in this encounter Care Teams Chief Of Anesthesiology Relationship Specialty Start Date End Date Yazmin Regan PACherriC [address] [facility] [address] [facility] [place] [address] PCP - General Physician Telemarketing Fundraiser 09/21/19 documented as of this encounter
--- OUTSIDE RECORDS SUMMARY | 2024-07-16 16:51 | External Medical Summary | Summary of Care ---
Author Name Unknown Organization [facility] Address [address] [place] [address] Phone [phone] Care Team Providers Care Production Generalist Name Role Phone Yazmin Regan PA-C Primary Care Provider +1- [phone] Reason for Visit * Reason Onset Date Comments Test Results 07/12/2024 Encounter Details Date Type Department Care Team (Late st Contact Info) Description 07/12/2024 Telephone [facility] [place] [address] [place] [address] Yazmin Regan PA-C [address] [place] [address] Test Results Allergies Active Allergy Reactions Criticality Noted Date Comments Adhesive Tape Other (Please comment) 07/23/2017 Cephalosporins 05/17/2001 keflex documented as of this encounter (statuses as of 07/12/2024) Medications Albuterol Sulfate HFA 108 (90 Base) MCG/ACT Inhalation Aerosol Solution Inhale 2 Puffs by mouth every 6 hours as needed for Wheezing. 18 g 06/17/2024 Active documented as of this encounter (statuses as of 07/12/2024) Active Problems Problem Noted Date Diagnosed Date Pulmonary embolism 11/08/2023 Special screening for malignant neoplasms, colon 11/28/2005 Overview (11/28/2005): Colonoscopy 11/24/05--diverticulosis, repeat 10 years Osteoporosis 06/14/2003 documented as of this encounter (statuses as of 07/12/2024) Resolved Problems Problem Noted Date Diagnosed Date Resolved Date ADVANCE DIRECTIVE INFORMATION 08/12/2005 05/09/2024 Overview (08/12/2005): No, Advance Directive brochure given to patient. documented as of this encounter (statuses as of 07/12/2024) Immunizations No known immunizationsdocumented as of this [...] Encounter - Kenyon Booth MED ASSIST - 07/12/2024 3:00 PM EST Called and spoke with pt. She would like to make PCP aware of results. * Telephone Encounter - Kenyon Booth MED ASSIST - 07/12/2024 3:00 PM EST ----- Message from Rajani Flores sent at 07/12/2024 2:58 PM EST ----- Cholesterol ok, continue diet and exercise changes. Thyroid labs mildly abnormal, recommend to discuss with PCP. documented in this encounter Plan of Treatment Upcoming Encounters Date Type Department Care Team (Late st Contact Info) Description 07/21/2024 7:15 AM EST Appointment Radiology, [facility] [address] [place] [address] 08/04/2024 8:20 AM EST Office Visit Family Practice, [place] [address] [place] [address] Yazmin Regan PA-C [address] [place] [address] 10/18/2024 8:00 AM EDT Office Visit Cardiology, [place] [address] [place] [address] Rajani Flores PA-C [address] [place] [place] [address] Health Maintenance Due Date Last Done Comments DTap/Tdap Vaccines (1 - Tdap) 09/18/1964 VITAMIN D LEVEL ONCE IN A LIFETIME-USE SMARTSET# [id number] 1984 Pneumococcal Vaccine: 50+ Years (1 of 1 - PCV) 1994 Adult Wellness Visit 2010 Depression Screening 09/20/2020 09/21/2019 *BISPHONATE OR OTHER ACCEPTABLE MEDICATION NEEDED FOR OSTEOPOROSIS (REFER TO SMARTSET #1146) 04/25/2022 COVID-19 Vaccine (2023- season) 2024 Influenza Vaccine (FLU shot) (#1) [...] filedocumented as of this encounter Care Teams Production Generalist Relationship Specialty Start Date End Date Yazmin Regan PA-C [address] [address] [place] [address] PCP - General Physician Airplane Coverer 09/21/19 documented as of this encounter
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
--- OUTSIDE RECORDS SUMMARY | 2024-07-16 16:51 | External Medical Summary | Summary of Care ---
Author Name Unknown Organization [facility] [address] [place] [address] Phone [phone] Care Team Providers Care Burning Plant Operator Name Role Phone Yazmin Regan PA-C Primary Care Provider +1- [phone] Reason for Visit * Precert (Diagnostic Medical) (Within 10 days (routine)) - Authorized Specialty Diagnoses / Procedures Referred By Contac t Referred To Contact Cardiac Studies Diagnoses Exertional dyspnea Procedures ECHO, STRESS (EXERCISE) W/ PHYSICIAN Yazmin Regan PA-C [address] [place] [address] Phone: tel: fax: Referral ID Status Reason Start Date Expiration Date V isits Requested Visits Authorized [id number] Authorized Precert 07/01/2024 07/20/[phone] Encounter Details Date Type Department Care Team (Latest Contact Info) Description 07/08/2024 10:39 AM EST - 07/08/2024 11:59 PM EST Hospital Encounter [address]iac Studies, [address] [place] [address] Discharge Disposition: Home - Self Care Allergies Active Allergy Reactions Criticality Noted Date Comments Adhesive Tape Other (Please comment) 07/23/2017 Cephalosporins 05/17/2001 keflex documented as of this encounter (statuses as of 07/09/2024) Medications loratadine (CLARITIN) 10 MG TabletIndication s:Acute [...] as of this encounter (statuses as of 07/09/2024) Active Problems Problem Noted Date Diagnosed Date Pulmonary embolism 11/08/2023 Special screening for malignant neoplasms, colon 11/28/2005 Overview (11/28/2005): Colonoscopy 11/24/05--diverticulosis, repeat 10 years Osteoporosis 06/14/2003 documented as of this encounter (statuses as of 07/09/2024) Resolved Problems Problem Noted Date Diagnosed Date Resolved Date ADVANCE DIRECTIVE INFORMATION 08/12/2005 05/09/2024 Overview (08/12/2005): No, Advance Directive brochure given to patient. documented as of this encounter (statuses as of 07/09/2024) Immunizations No known immunizationsdocumented as of this [...] Sign Reading Time Taken Comments Blood Pressure - - Pulse 75 07/08/2024 10:59 AM EST Temperature - - Respiratory Rate - - Oxygen Saturation - - Inhaled Oxygen Concentration - - Weight - - Height - - Body Mass Index - - documented in this encounter Miscellaneous Notes * Ancillary Progress Note - Danielle Funez, RN - 07/08/2024 10:45 AM EST Stress echo done. documented in this encounter Plan of Treatment Upcoming Encounters Date Type Department Care Team (Late st Contact Info) Description 07/11/2024 10:00 AM EST [facility] [address] [place] [address] Rajani Flores PA-C [address] [place] [address] 08/04/2024 8:20 AM EST Office Visit [facility] [address] [place] [phone] Yazmin Regan PA-C [address] [place] [phone] Pending Results Name Type Priority Associated Diagnoses Date /Time ECHO, STRESS (EXERCISE) W/ PHYSICIAN Echocardiology Routine Exertional dyspnea 07/08/2024 11:54 AM EST Health Maintenance Due Date Last Done Comments DTap/Tdap Vaccines (1 - Tdap) 09/18/1963 VITAMIN D LEVEL ONCE IN A LIFETIME-USE SMARTSET# [id number] 1984 Pneumococcal Vaccine: 50+ Years (1 of [...] and respiratory abnormality documented in this encounter Administered Medications Inactive Administered Medications - up to 3 most recent administrations Medication Order MAR Action Action Date Dose Rate Site perflutren lipid microsphere inj SUSP 1.956 mg 1.956 mg, Intravenous, ONCE PRN Other, For Echo Only - Suboptimal Echo Images, Starting on Thu07/08/24 at 1053, Until Thu07/08/24 at 1252, For 2 hours, Administer IVP over 45 seconds, Cardiac Studies_HODHOVIndications:Exert ional dyspnea Given 07/08/2024 10:58 AM EST 1.956 mg documented in this encounter Care Teams Burning Plant Operator Relationship Specialty Start Date End Date Yazmin Regan PA-C [address] [facility] [address] [facility] [place] [address] PCP - General Physician Completion Manager 09/21/19 documented as of this encounter
--- OUTSIDE RECORDS SUMMARY | 2024-07-16 16:51 | External Medical Summary | Summary of Care ---
Author Name Unknown Organization [facility] Address [address] [facility] [place] [address] Phone [phone] Care Team Providers Care Senior Producer Name Role Phone Yazmin Regan PA-C Primary Care Provider +1- [phone] Reason for Visit * Reason Onset Date Comments Precert Pending 07/07/2024 07/08/2024 STRESS ECHO IS NOT APPROVED FOR [facility] Encounter Details Date Type Department Care Team (Late st Contact Info) Description 07/07/2024 Telephone [facility] [address] [place] [address] Enrique Seymour MD [address] [place] [address] Precert Pending (07/08/2024 STRESS [...] encounter Miscellaneous Notes * Telephone Encounter - Shannon Mcqueen LPN - 07/08/2024 9:42 AM EST Spoke with Yazmin at this ECHO Stress Test- phone number provide case# [id number]. To get a Peer to Peer scheduled at this time, spoke with Sienna. * Telephone Encounter - Alvin Elias CRNP - 07/07/2024 4:05 PM EST Will wait for Dr. Seymour to address this. * Telephone Encounter - Jaylyn Garrett OSA - 07/07/2024 3:09 PM EST Good Afternoon, I have been checking on the [id number] Exercise Stress Echo that is on the schedule for tomorrow at [facility] and per [employer] the third republican electronic publisher that study is NOT APPROVED. I called and advised the patient to call and speak with you to see how to proceed. These cases can take 10-15 business days for the medical hospital sales to review. Please advise on how you wish to proceed. Thank you, Jaylyn documented in this encounter Plan of Treatment Upcoming Encounters Date Type Department Care Team (Late st Contact Info) Description 07/08/2024 10:45 AM EST Appointment Cardiac Studies, [address] [place] [address] 08/04/2024 8:20 AM EST Office Visit [facility] [place] [address] [place] [address] Yazmin Regan PA-C [address] [place] [address] 11/10/2024 10:00 AM EDT Office Visit Cardiology, [address] [place] [address] Ashley Lofton MD [address] [place] [address] Health Maintenance Due Date Last Done Comments DTap/Tdap Vaccines (1 - Tdap) 09[birth year]18/1964 VITAMIN D LEVEL ONCE IN A LIFETIME-USE SMARTSET# [id number] 1984 Pneumococcal Vaccine: 50+ Years (1 of [...] filedocumented as of this encounter Care Teams Senior Producer Relationship Specialty Start Date End Date Yazmin Regan PA-C [address] [facility] [address] [place] [address] PCP - General Physician Leather Drier 09/21/19 documented as of this encounter
--- OUTSIDE RECORDS SUMMARY | 2024-07-16 16:51 | External Medical Summary | Summary of Care ---
Author Name Unknown Organization [facility] Address [address] [facility] [address] Phone [phone] Care Team Providers Care Relay Technician Name Role Phone Yazmin Regan PA-C Primary Care Provider +1- [phone] Reason for Visit * Reason Onset Date Comments Advice 06/17/2024 Advice on interm ittent SOB, abdominal pain Encounter Details Date Type Department Care Team (Late st Contact Info) Description 06/17/2024 [facility] [address] [place] [address] Yazmin Regan PA-C [address] [place] [address] Advice (Advice on intermittent SOB, abdomi... Allergies Active Allergy Reactions Criticality Noted Date Comments Adhesive Tape Other (Please comment) 07/23/2017 Cephalosporins 05/17/2001 keflex documented as of this encounter (statuses as of 06/17/2024) Medications loratadine (CLARITIN) 10 MG TabletIndication s:Acute allergic serous otitis media of both ears,Allergic rhinitis, unspecified seasonality, unspecified trigger,Allergic cough Take 1 Tab by mouth daily. 30 Tab 1 0 Active fluticasone (FLONASE) 50 MCG/ACT nasal sprayIndications :Acute allergic serous otitis media of both ears,Allergic rhinitis, unspecified seasonality, unspecified trigger Administer 2 Sprays into each nostril daily. 1 Inhaler 1 0 Active documented as of this encounter (statuses as of 06/17/2024) Active Problems Problem Noted Date Diagnosed Date Pulmonary embolism 11/08/2023 Special screening for malignant neoplasms, colon 11/28/2005 Overview (11/28/2005): Colonoscopy 11/24/05--diverticulosis, repeat 10 years Osteoporosis 06/14/2003 documented as of this encounter (statuses as of 06/17/2024) Resolved Problems Problem Noted Date Diagnosed Date Resolved Date ADVANCE DIRECTIVE INFORMATION 08/12/2005 05/09/2024 Overview (08/12/2005): No, Advance Directive brochure given to patient. documented as of this encounter (statuses as of 06/17/2024) Immunizations No known immunizationsdocumented as of this [...] Telephone Encounter - Shannon Mcqueen LPN - 06/17/2024 1:49 PM EST Patient came to the clinic today with c/o SOB and tightness in abdomen region intermittently only relieved when hunched over (wasn't currently having these symptoms). Spoke with PCP per PCP advising pt to go to the ER instead of waiting till Thursday for available appt. Pt stated to staff "I feel fine to drive, I drove myself here cause I wasn't experiencing anything at that time". Pt verbalized understanding at this time to head to ED. documented in this encounter Plan of Treatment Health Maintenance Due Date Last Done Comments DTap/Tdap Vaccines (1 - Tdap) 09/18/1964 VITAMIN D LEVEL ONCE IN A LIFETIME-USE SMARTSET# [id number] 1984 Pneumococcal Vaccine: 65+ Years (1 of [...] filedocumented as of this encounter Care Teams Relay Technician Relationship Specialty Start Date End Date Yazmin Regan PA-C [address] [facility] [address] [place] [address] PCP - General Physician Banana Ripening Room Supervisor 09/21/19 documented as of this encounter
--- OUTSIDE RECORDS SUMMARY | 2024-07-16 16:51 | External Medical Summary ---
Author Name Unknown Address Unknown Organization K1F:[facility] - [address] [place] [address] Laboratory Report Ordering Provider Test Date Status FRANKI AGUILAR 06/17/2024 16:05:00 Final Collect 1 HOUR Observation Date Value Abnormality Reference (Units ) Status Troponin T 06/17/2024 16:05:00 45 Above high normal < =14 (ng/L) Final Performing Location [facility] - [address] [place] [address]
--- OUTSIDE RECORDS SUMMARY | 2024-07-16 16:51 | External Medical Summary ---
Author Name Unknown Address Unknown Organization K01:[facility] - [address] [place] [address] Laboratory Report Ordering Provider Test Date Status ROBERT EMERY 07/11/2024 10:31:08 Final Observation Date Value Abnormality Reference (Units ) Status T4, Free 07/11/2024 10:31:08 0.8 Below low normal 0.9 -1.7 (ng/dL) Final Performing Location [facility] - [address] [place] [address]
--- OUTSIDE RECORDS SUMMARY | 2024-07-16 16:51 | External Medical Summary | Summary of Care ---
Author Name Unknown Organization [facility] [address] [place] [address] Phone [phone] Care Team Providers Care [place] Debeader Name Role Phone Yazmin Regan PA-C Primary Care Provider [phone] Reason for Referral * Evaluate & Treat - Unlimited Visits (Within 10 days (routine)) - Authorized Specialty Diagnoses / Procedures Referred By Contact Referred To Contact Cardiovascular Medicine / Cardiology Diagnoses Exertional dyspnea Aziza Costello PA-C [address] [facility] [place] [address] Phone: tel: fax: Referral ID Status Reason Start Date Expiration Date Visits Requested Visits Authorized [id number] Authorized Specialty Services Required 4 [phone] Question Answer Referral Priority Within 10 days (routine) Where should this appointment be scheduled? [facility] To which of the following clinics are you referring your patient? General Cardiology Clinic Comments Discharge Order Reason for Visit * Reason Comments Short of Breath * Auth/Cert Specialty Diagnoses / Procedures Referred By Contpedro t Referred To Contact [address] [address] Phone: tel:[phone] [facility] ([facility]) [address] [facility] [address] Phone: tel: fax: Referral ID Status Reason Start Date Expiration Date Visits Re quested Visits Authorized [id number] Encounter Details Date Type Department Care Team (Late st Contact Info) Description 06/17/2024 2:20 PM EST - 06/17/2024 5:53 PM EST Emergency [facility] Emergency Department ([facility]) [address] [place] [id number] Rafi Souza DO [address] [place] [address] Exertional dyspnea (Primary Dx) Discharge Disposition: Home - Self Care Allergies Active Allergy Reactions Criticality Noted Date Comments Adhesive Tape Other (Please comment) 07/23/2017 Cephalosporins 05/17/2001 keflex documented as of this encounter (statuses as of 06/18/2024) Medications loratadine (CLARITIN) 10 MG TabletIndication s:Acute allergic serous otitis media of both ears,Allergic rhinitis, unspecified seasonality, unspecified trigger,Allergic cough Take 1 Tab by mouth daily. 30 Tab 1 0 Active fluticasone (FLONASE) 50 MCG/ACT nasal sprayIndications :Acute allergic serous otitis media of both ears,Allergic rhinitis, unspecified seasonality, unspecified trigger Administer 2 Sprays into each nostril daily. 1 Inhaler 1 0 Active Albuterol Sulfate HFA 108 (90 Base) MCG/ACT Inhalation Aerosol Solution Inhale 2 Puffs by mouth every 6 hours as needed for Wheezing. 18 g 4 Active documented as of this encounter (statuses as of 06/18/2024) Active Problems Problem Noted Date Diagnosed Date Pulmonary embolism 11/08/2023 Special screening for malignant neoplasms, colon 11/28/2005 Overview (11/28/2005): Colonoscopy 11/24/05--diverticulosis, repeat 10 years Osteoporosis 06/14/2003 documented as of this encounter (statuses as of 06/18/2024) Resolved Problems Problem Noted Date Diagnosed Date Resolved Date ADVANCE DIRECTIVE INFORMATION 08/12/2005 05/09/2024 Overview (08/12/2005): No, Advance Directive brochure given to patient. documented as of this encounter (statuses as of 06/18/2024) Immunizations No known immunizationsdocumented as of this [...] Sign Reading Time Taken Comments Blood Pressure 169/87 06/17/2024 5:00 PM EST Pulse 87 06/17/2024 5:00 PM EST Temperature 36 C (96.8 F) 06/17/2024 2:20 PM EST Respiratory Rate 19 06/17/2024 5:00 PM EST Oxygen Saturation 100% 06/17/2024 2:20 PM EST Inhaled Oxygen Concentration - - Weight 72.2 kg (159 lb 3.2 oz) 06/17/2024 2:20 P M EST Height 157.5 cm (5' 2") 06/17/2024 2:20 PM EST Body Mass Index 29.12 06/17/2024 2:20 PM EST documented in this encounter Discharge Instructions * Discharge Instructions* Aziza Costello PA-C - 06/17/2024 5:36 PM EST You were seen and evaluated here in the ED for shortness of breath with ambulation. Your workup wasoverall reassuring. I have placed a Cardiology referral for further follow up workup on an outpatient basis. I also encouraged following up with PCP. I have sent an albuterol inhaler to use if needed for shortness of breath and wheezing. Please alsouse the spacer provided as well. If you begin to notice any worsening shortness of breath, begin to have chest pain, lightheadedness, or any new or worsening symptoms please report to the ED immediately for further evaluation. documented in this encounter ED Notes * Rafi Souza, DO - 06/17/2024 3:14 PM EST HISTORY OF PRESENT ILLNESS Rohini Hauser is a 78 year old [...] breath at home. Denies any supplemental oxygen. Short of Breath Associated symptoms: no abdominal pain, no chest pain, no fever, no sore throat, no vomiting and nowheezing Review of Systems Constitutional: Negative for chills and fever. HENT: Negative for congestion, rhinorrhea and sore throat. Respiratory: Positive for shortness of breath. Negative for wheezing. Cardiovascular: Negative for chest pain, palpitations and leg swelling. Gastrointestinal: Negative for abdominal pain, constipation, diarrhea, nausea and vomiting. Genitourinary: Negative for dysuria, hematuria and urgency. Musculoskeletal: Negative for back pain. The patient's allergies, past history, and medications were reviewed. PHYSICAL EXAM Initial Vitals (see all): BP 181/87 | Pulse 109 | Resp 20 | Temp 96.8 | O2 100 %, Room Air, None | Weight 72.21 kg | Height 157.5 cm | BMI 29.12 kg/m2 Initial Pain Assessment (see all): 0 (no pain)/10 ([facility] Adult Scale 0-10) Physical Exam Vitals and nursing note reviewed. Constitutional: General: She is not in acute distress. Appearance: Normal appearance. HENT: Head: Normocephalic and atraumatic. Eyes: Pupils: Pupils are equal, round, and reactive to light. Cardiovascular: Rate and Rhythm: Regular rhythm. Tachycardia present. Pulses: Normal pulses. Heart sounds: Normal heart sounds. Pulmonary: Effort: Pulmonary effort is normal. No tachypnea. Breath sounds: Normal breath sounds. No decreased breath sounds, wheezing, rhonchi or rales. Abdominal: Palpations: Abdomen is soft. Tenderness: There is no abdominal tenderness. Musculoskeletal: General: Normal range of motion. Right lower leg: No edema. Left lower leg: No edema. Skin: General: Skin is warm. Neurological: Mental Status: She is alert. PROCEDURES AND TREATMENTS ED Orders | ED Results MEDICAL DECISION MAKING Nursing notes and vital signs were reviewed. ED Course as of 06/17/24 1748 ThuJun 17, 2024 1503 BP: 181/87 [BK] 1503 Pulse: 109 [BK] 1503 Resp: 20 [BK] 1503 SpO2: 100 % [BK] 1504 Temp: 36 C (96.8 F) [BK] 1504 Capillary Refill: 1-2 seconds [BK] 1510 EKG My interpretation of EKG today reveals sinus tachycardia at a rate of 102 beats per minute. KS interval 182 MS. QT/QTC 3 to 4/5 on MS. Left axis deviation. Right bundle-branch block noted. When compared to previous EKG, sinus tachycardia has replaced normal sinus [BK] 1622 D-Dimer [BK] 1622 XR Chest 2 Views IMPRESSION: No dense parenchymal consolidation, pleural effusion, or pneumothorax [BK] ED Course User Index [BK] Aziza Costello PA-C Differential Diagnoses Based on my history, physical exam, and evaluation, the differential includes, but is not limited, to the following diagnoses: PE, CHF, pneumonia, less likely ACS, asthma, COPD, viral syndrome, acutebronchitis. Patient is a 78 year old female presenting with shortness of breath primarily with ambulation and moving that she noticed worsened yesterday. On arrival, patient was tachycardic, remainder of vitals overall reassuring. Tachycardia did improve throughout ED visit without any intervention. Labs reviewed, and significant for no leukocytosis, elevated but flat troponin x2 with most recent being 7 years ago to compare to. Normal renal function, negative D-dimer, normal BNP. Viral panel was offered here in the ED however the patient denied wanting it. Chest x-ray was ordered due to concern for cardiopulmonary etiology of symptoms, which demonstrated no acute findings. She expressed that while at rest she did not feel as short of breath and did not feel she needed any intervention in the ED. Ambulatory pulse ox was overall reassuring. I discussed with her sending an albuterol inhaler to her pharmacy to take if needed for shortness of breath with the exertion as well as shortness of breath while being out in the cold. It has been sometime since she was had an echocardiogram done therefore [facility] place a outpatient Cardiology referral. Recommended follow up with PCP as well. Discussed strict return precautions. Patient expressed understanding of this treatment plan and was stable upon discharge. Amount and/or Complexity of Data Reviewed Labs: ordered. Decision-making details documented in ED Course. Radiology: ordered. Decision-making details documented in ED Course. ECG/medicine tests: ordered. Decision-making details documented in ED Course. Risk Prescription drug management. Clinical Impressions Exertional dyspnea Disposition Discharged. The patient's condition at disposition was: stable. Discharge Medications Disp Refills Start End Albuterol Sulfate HFA 108 (90 Base) MCG/ACT Inhalation Aerosol Solution 18 g 0 06/17/2024 -- Sig - Route: Inhale 2 Puffs by mouth every 6 hours as needed for Wheezing. - Inhalation Class: ePrescribing Renewals Renewal requests to authorizing provider (Aziza Costello PA-C) <b>prohibited</b> Rafi Souza was the attending physician who supervised the care of this patient. Aziza Costello PA-C ATTENDING ATTESTATION I have discussed the patient's management with the provider listed above and agree with the note, findings, and plan of care. I personally made/approved the management plan and take responsibility for patient management. * Esther Jacques RN - 06/17/2024 2:24 PM EST SOB with ambulation. Denies pain. Denies fever, chills, n/v/d. Provider advised her to be seen. Took two aspiring "just because" this morning. documented in this encounter Miscellaneous Notes * ED Scheduling Administrator Note - Sherice Gordillo RN - 06/17/2024 5:42 PM EST Pt provided with dc instructions all questions and concerns addressed verbalized understanding * Pt Handout (on AVS) - Aziza Costello PA-C - 06/17/2024 5:33 PM EST [id number] Shortness of Breath (Dyspnea) Shortness of breath is the feeling that you can't catch your breath or get enough air. It's also known as dyspnea. Dyspnea can be caused by many different conditions. They include: Acute asthma attack Worsening of chronic lung diseases such as chronic bronchitis and emphysema (COPD) Heart failure. This is when weak heart muscle causes extra fluid to collect in the lungs. Panic attacks or anxiety. Fear can cause rapid breathing (hyperventilation). Pneumonia, or an infection in the lung tissue Exposure to toxic substances, fumes, smoke, or certain medicines Blood clot in the lung (pulmonary embolism). This is often from a piece of blood clot in a deep vein of the leg (deep vein thrombosis) that breaks off and travels to the lungs. Heart attack or heart-related chest pain (angina) Anemia Collapsed lung (pneumothorax) Dehydration Based on your visit today, the exact cause of your shortness of breath is not certain. Your tests don?t show any of the serious causes of dyspnea. You may need other tests to find out if you have a serious problem. It?s important to watch for any new symptoms or symptoms that get worse. Follow up with your healthcare provider as directed. Home care Follow these tips to take care of yourself at home: When your symptoms are better, go back to your usual activities. If you smoke, you should stop. Join a quit-smoking program or ask your healthcare provider for help. Eat a healthy diet and get plenty of sleep. Get regular exercise. Talk with your healthcare provider before starting to exercise, especiallyif you have other medical problems. Discuss with your healthcare provider about cutting down on the amount of caffeine and stimulants you consume. Follow-up care Follow up with your healthcare provider, or as advised. If tests were done, you will be told if your treatment needs to be changed. You can call as directed for the results. If an X-ray was taken, you will be told of any new findings that may affect your care. Call 911 Shortness of breath may be a sign of a serious medical problem. For example, it may be a problem with your heart or lungs. Call 911 if you have worsening shortness of breath or trouble breathing, especially with any of the symptoms below: Shortness of breath or wheezing Confusion or difficulty waking Fainting or loss of consciousness Fast or irregular heartbeat Coughing up blood Unusual pain in your chest, arm, shoulder, neck, or upper back Unusual sweating Feeling of doom Lips or skin looks blue, purple, or peraza in color Feel dizzy When to seek medical advice Call your healthcare provider right away if any of these occur: Redness, pain or swelling in your leg, arm, or other body area Swelling in both legs or ankles Fast weight gain Weakness Fever of 100.4F (38C) or higher, or as directed by your healthcare provider Last Reviewed Date: 2021 00:00:00 [id number] [employer]. All rights reserved. This information is not intended as a substitute for professional medical care. Always follow your healthcare professional's instructions. * ED Scheduling Administrator Note - Sherice Gordillo, RN - 06/17/2024 5:06 PM EST Amb pulse ox complete HR- 86 O2- 95% RA documented in this encounter Plan of Treatment Scheduled Referrals Name Type Priority Associated Diagnoses Orde r Schedule CARDIOLOGY REFERRAL OP Referral Within 10 days (routine) Exertional dyspnea Ordered: 06/17/2024 Health Maintenance Due Date Last Done Comments DTap/Tdap Vaccines (1 - Tdap) 09/18/1964 VITAMIN D LEVEL ONCE IN A LIFETIME-USE SMARTSET# [id number] 1984 Pneumococcal Vaccine: 65+ Years (1 of [...] Procedure Name Priority Date/Time Associated Diagnosis Comments TROPONIN T, HIGH SENSITIVITY STAT 06/17/2024 4:05 PM EST XR CHEST 2 VIEWS STAT 06/17/2024 3:58 PM EST EXTRA LIGHT BLUE TOP STAT 06/17/2024 3:01 PM EST DIFFERENTIAL, AUTOMATED STAT 06/17/2024 3:01 PM EST TROPONIN T, HIGH SENSITIVITY STAT 06/17/2024 3:01 PM EST BNP (NT-PROBNP) Add-on 06/17/2024 3:01 PM EST COMPREHENSIVE METABOLIC PANEL STAT 06/17/2024 3:01 PM EST D-DIMER STAT 06/17/2024 3:01 PM EST CBC STAT 06/17/2024 3:01 PM EST CBC STAT 06/17/2024 3:01 PM EST documented in this encounter Results * (ABNORMAL) TROPONIN T, HIGH SENSITIVITY (06/17/2024 4:05 PM EST) Troponin T, High Sensitivity 45(H) <=14 ng/L 06/17/2024 4:52 PM EST LABORATORY [facility] Blood Venous blood specimen / Unknown Venipuncture / Unknown 06/17/2024 4:05 PM EST 06/17/2024 4:07 PM EST us Aziza Costello PA-C LAB BLOOD ORDERABLE S Final Result LABORATORY [facility] [address] [place] [address] * XR CHEST 2 VIEWS (06/17/2024 3:58 PM EST) Anatomical Region Laterality Modality Chest Digital Radiogra phy 06/17/2024 3:51 PM EST Impressions 06/17/2024 4:12 PM EST IMPRESSION: No dense parenchymal consolidation, pleural effusion, or pneumothorax. THIS DOCUMENT HAS BEEN ELECTRONICALLY SIGNED BY DOUGLAS THORNTON MD Narrative 06/17/2024 4:12 PM EST PROCEDURE INFORMATION: Exam: XR Chest Exam date and time: 06/17/2024 3:51 PM Age: 78 years old Clinical indication: Other: Chest pain TECHNIQUE: Imaging protocol: Radiologic exam of the chest. Views: 2 views. COMPARISON: No relevant prior studies available. FINDINGS: Lungs: No evidence of acute pulmonary disease or infiltrates Pleural spaces: No large effusion or pneumothorax. Heart/Mediastinum: No evidence of mediastinal widening or cardiac silhouette enlargement; the mediastinum and heart appear within normal limits for contour and size. Bones/joints: No evidence of acute osseous abnormalities within the visualized portions of the thoracic spine and ribs. Osseous structures appear appropriate for patient age. Procedure Note Douglas Thornton MD - 06/17/2024 PROCEDURE INFORMATION: Exam: XR Chest Exam date and time: 06/17/2024 3:51 PM Age: 78 years old Clinical indication: Other: Chest pain TECHNIQUE: Imaging protocol: Radiologic exam of the chest. Views: 2 views. COMPARISON: No relevant prior studies available. FINDINGS: Lungs: No evidence of acute pulmonary disease or infiltrates Pleural spaces: No large effusion or pneumothorax. Heart/Mediastinum: No evidence of mediastinal widening or cardiacsilhouette enlargement; the mediastinum and heart appear within normal limits forcontour and size. Bones/joints: No evidence of acute osseous abnormalities within thevisualized portions of the thoracic spine and ribs. Osseous structures appearappropriate for patient age. IMPRESSION IMPRESSION: No dense parenchymal consolidation, pleural effusion, or pneumothorax. THIS DOCUMENT HAS BEEN ELECTRONICALLY SIGNED BY DOUGLAS THORNTON MD us Aziza Costello PA-C RADIOLOGY ([facility]) Final Result * BNP, NT-PRO (06/17/2024 3:01 PM EST) BNP, NT-Pro 219 <300 pg/mL 06/17/2024 4:03 PM EST LABORATORY [facility] Blood Venous blood specimen / Unknown Venipuncture / Unknown 06/17/2024 3:01 PM EST 06/17/2024 3:11 PM EST Narrative LABORATORY [facility] - 06/17/2024 4:03 PM EST Exclude Heart Failure: <300 pg/mL Diagnose Heart Failure: Age <50 yr: >450 pg/mL 50-75 yr: >900 pg/mL >75 yr: >1800 pg/mL GFR is 30-59 mL/min: >1200 pg/mL or Age-adjusted values GFR <30 mL/min: do not use, not reliable Prognostic threshold: 1000 pg/mL us Aziza Costello PA-C LAB BLOOD ORDERABLE S Final Result LABORATORY [facility] [address] [place] [address] * DIFFERENTIAL, AUTOMATED (06/17/2024 3:01 PM EST) WBC 9.64 4.00 - 10.80 K/uL 06/17/2024 3:15 PM EST LAB[facility]ATORY [facility] Neutrophils % 68.9 40.0 - 75.0 % 06/17/2024 3:15 PM EST LABORATORY [facility] Lymphocytes % 23.1 18.0 - 42.0 % 06/17/2024 3:15 PM EST LABORATORY [facility] Monocytes % 5.7 1.0 - 11.0 % 06/17/2024 3:15 PM EST LABORATORY [facility] Eosinophils % 1.2 0.0 - 6.0 % 06/17/2024 3:15 PM EST LAB[facility]ATORY [facility] Basophils % 0.8 0.0 - 2.0 % 06/17/2024 3:15 PM EST LABORATORY [facility] Immature Granulocytes % 0.3 0.0 - 2.0 % 06/17/2024 3:15 PM EST LAB[facility]ATORY [facility] Absolute Neutrophils 6.63 1.80 - 7.70 K/uL 06/17/2024 3:15 PM EST LAB[facility]ATORY [facility] Absolute Lymphocytes 2.23 1.00 - 4.80 K/ul 06/17/2024 3:15 PM EST LAB[facility]ATORY [facility] Absolute Monocytes 0.55 0.00 - 1.10 K/uL 06/17/2024 3:15 PM EST LAB[facility]ATORY [facility] Absolute Eosinophils 0.12 0.00 - 0.70 K/uL 06/17/2024 3:15 PM EST LAB[facility]ATORY [facility] Absolute Basophils 0.08 0.00 - 0.20 K/uL 06/17/2024 3:15 PM EST LAB[facility]ATORY [facility] Absolute Immature Granulocytes 0.03 0.00 - 0.20 K/uL 06/17/2024 3:15 PM EST LAB[facility]ATORY [facility] Blood Venous blood specimen / Unknown Venipuncture / Unknown 06/17/2024 3:01 PM EST 06/17/2024 3:11 PM EST us Aziza Costello PA-C LAB BLOOD ORDERABLE S Final Result Performing Organization Address City/[facility]/ZIP Co de Phone Number LABORATORY [address] [phone] * CBC (06/17/2024 3:01 PM EST) [facility] WBC 9.64 4.00 - 10.80 K/uL 06/17/2024 3:15 PM EST LABORATORY GL RBC 4.70 3.85 - 5.15 M/uL 06/17/2024 3:15 PM EST LABORATORY GL HGB 13.3 12.0 - 15.3 g/dL 06/17/2024 3:15 PM EST LABORATORY GL HCT 41.5 36.0 - 45.2 % 06/17/2024 3:15 PM EST LABORATORY GL MCV 88.3 81.5 - 97.5 fL 06/17/2024 3:15 PM EST LABORATORY GL MCH 28.3 27.0 - 34.0 pg 06/17/2024 3:15 PM EST LABORATORY GL MCHC 32.0 32.0 - 36.0 g/dL 06/17/2024 3:15 PM EST LABORATORY GL RDW 13.5 11.5 - 15.5 % 06/17/2024 3:15 PM EST LABORATORY GL PLT 348 140 - 400 K/uL 06/17/2024 3:15 PM EST LABORATORY GL MPV 9.3 6.6 - 11.1 fL 06/17/2024 3:15 PM EST LABORATORY GL nRBCs 0 <=0 /100 WBCs 06/17/2024 3:15 PM EST LABORATORY GL Blood Venous blood specimen / Unknown Venipuncture / Unknown 06/17/2024 3:01 PM EST 06/17/2024 3:11 PM EST Aziza Costello PA-C LAB BLOOD ORDERABLE S Final Result LABORATORY [address] [address] * D-DIMER (06/17/2024 3:01 PM EST) Pathologist [facility] D-Dimer <0.27 <0.50 ug/mL FEU 06/17/2024 3:55 PM EST LABORATORY [facility] Blood Venous blood specimen / Unknown Venipuncture / Unknown 06/17/2024 3:01 PM EST 06/17/2024 3:11 PM EST Narrative LABORATORY [facility] - 06/17/2024 3:55 PM EST Rheumatoid factor at a level above 50 [...] definitively correlate with clinical severity of disease. us Aziza Costello PA-C LAB BLOOD ORDERABLE S Final Result LABORATORY [address] [address] * EXTRA LIGHT BLUE TOP (06/17/2024 3:01 PM EST) Blood Venous blood specimen / Unknown Venipuncture / Unknown 06/17/2024 3:01 PM EST 06/17/2024 3:11 PM EST us Aziza Costello PA-C LAB BLOOD ORDERABLE S Final Result LABORATORY [address] [address] * (ABNORMAL) TROPONIN T, HIGH SENSITIVITY (06/17/2024 3:01 PM EST) Pathologist [facility] Troponin T, High Sensitivity 43(H) <=14 ng/L 06/17/2024 3:34 PM EST LABORATORY [facility] Blood Venous blood specimen / Unknown Venipuncture / Unknown 06/17/2024 3:01 PM EST 06/17/2024 3:10 PM EST us Aziza Costello PA-C LAB BLOOD ORDERABLE S Final Result LABORATORY [facility] [address] [place] [address] * (ABNORMAL) COMPREHENSIVE METABOLIC PANEL (06/17/2024 3:01 PM EST) BUN 19 6 - 20 mg/dL 06/17/2024 3:31 PM EST LABORATORY [facility] CREATININE 0.9 0.5 - 1.0 mg/dL 06/17/2024 3:31 PM EST LABORATORY [facility] EGFR 64 >=60 mL/min 06/17/2024 3:31 PM EST LABORATORY [facility] Comment:eGFR is calculated b ased on the CKD-EPI 2020 equation. SODIUM 144 135 - 146 mmol/L 06/17/2024 3:31 PM EST LABORATORY [facility] POTASSIUM 4.3 3.5 - 5.1 mmol/L 06/17/2024 3:31 PM EST LABORATORY [facility] CHLORIDE 107 98 - 107 mmol/L 06/17/2024 3:31 PM EST LAB[facility]ATORY [facility] CO2 24 22 - 32 mmol/L 06/17/2024 3:31 PM EST LAB[facility]ATORY [facility] ANION GAP 13 7 - 15 mmol/L 06/17/2024 3:31 PM EST LAB[facility]ATORY [facility] GLUCOSE 133(H) 70 - 120 mg/dL 06/17/2024 3:31 PM EST LAB[facility]ATORY [facility] Albumin 4.5 3.8 - 5.0 g/dL 06/17/2024 3:31 PM EST LAB[facility]ATORY [facility] AST 34 10 - 35 U/L 06/17/2024 3:31 PM EST LAB[facility]ATORY [facility] Alkaline Phosphatase 76 35 - 130 U/L 06/17/2024 3:31 PM EST LAB[facility]ATORY [facility] Bilirubin, Total 0.3 <=1.2 mg/dL 06/17/2024 3:31 PM EST LAB[facility]ATORY [facility] CALCIUM 9.7 8.4 - 10.2 mg/dL 06/17/2024 3:31 PM EST LAB[facility]ATORY [facility] Protein 7.3 6.0 - 8.3 g/dL 06/17/2024 3:31 PM EST LAB[facility]ATORY [facility] ALT 30 10 - 35 U/L 06/17/2024 3:31 PM EST LAB[facility]ATORY [facility] Blood Venous blood specimen / Unknown Venipuncture / Unknown 06/17/2024 3:01 PM EST 06/17/2024 3:11 PM EST us Aziza Costello PA-C LAB BLOOD ORDERABLE S Final Result LABORATORY [facility] [address] [place] [address] documented in this encounter Visit Diagnoses Diagnosis Exertional dyspnea- Primary Other dyspnea and respiratory abnormality documented in this encounter Administered Medications Inactive Administered Medications - up to 3 most recent administrations Medication Order MAR Action Action Date Dose Rate Site spacer, inhalation (Aerochamber) device 1 Each 1 Each, Inhalation, ONCE, On Thu06/17/24 at 1815, For 1 dose Given 06/17/2024 6:15 PM EST 1 Each documented in this encounter Active and Recently Administered Medications Times are shown in EST. Scheduled Medication Order 06/15/2024 06/16/2024 06/17/2024 spacer, inhalation (Aerochamber) device 1 Each (COMPLETED) 1 Each, Inhalation, ONCE, On Thu06/17/24 at 1815, For 1 dose 1815 (Given - Provid er: Sherice Gordillo RN) documented in this encounter Care Teams [place] Debeader Relationship Specialty Start Date End Date Yazmin Regan PA-C [address] [facility] [address] [place] [address] [place] [address] PCP - General Physician Insurance Representative 09/21/19 documented as of this encounter
--- OUTSIDE RECORDS SUMMARY | 2024-07-16 16:51 | External Medical Summary ---
Author Name Unknown Address Unknown Organization K1F:LABORATORY [facility] - [address] [place] [address] Laboratory Report Ordering Provider Test Date Status FRANKI AGUILAR 06/17/2024 15:01:00 Final Exclude Heart Failure: <300 pg/mL
Diagnose Heart Failure:
Age <50 yr: >450 pg/mL
50-75 yr: >900 pg/mL
>75 yr: >1800 pg/mL
GFR is 30-59 mL/min: >1200 pg/mL or Age- adjusted values
GFR <30 mL/min: do not use, not reliable

Prognostic threshold: 1000 pg/mL Observation Date Value Abnormality Reference (Units ) Status BNP, Pro-hormone 06/17/2024 15:01:00 219 <30 0 (pg/mL) Final Performing Location [facility]ATORY [facility] - [address] [place] [address]
--- OUTSIDE RECORDS SUMMARY | 2024-07-16 16:51 | External Medical Summary ---
Author Name Unknown Address Unknown Organization K1F:LABORATORY [facility] - [address] [place] [address] Laboratory Report Ordering Provider Test Date Status FRANKI AGUILAR 06/17/2024 15:01:00 Final Observation Date Value Abnormality Reference (Units ) Status BUN 06/17/2024 15:01:00 19 6-20 (mg/dL) Final Creatinine 06/17/2024 15:01:00 0.9 0.5-1.0 (mg/dL) Final Glomerular filtration rate/1.73 sq M.predicted [Volume Rate/Area] in Serum, Plasma or Blood by Creatinine-based formula (CKD-EPI) 06/17/2024 15:01:00 64 >=60 (mL/min) Final eGFR is calculated based on the CKD-EPI 2020 equation. Sodium 06/17/2024 15:01:00 144 135-146 (m mol/L) Final Potassium 06/17/2024 15:01:00 4.3 3.5-5.1 (m mol/L) Final Cl 06/17/2024 15:01:00 107 98-107 (mm ol/L) Final CO2 06/17/2024 15:01:00 24 22-32 (mmo l/L) Final Anion gap 06/17/2024 15:01:00 13 7-15 (mmol /L) Final Glucose 06/17/2024 15:01:00 133 Above high normal 70 -120 (mg/dL) Final Albumin 06/17/2024 15:01:00 4.5 3.8-5.0 (g /dL) Final AST (Aspartate aminotransferase) 06/17/2024 15:01:00 34 10-35 (U/L) Fin al Alk Phos 06/17/2024 15:01:00 76 35-130 (U/ L) Final Bilirubin, Total 06/17/2024 15:01:00 0.3 <=1 .2 (mg/dL) Final Calcium 06/17/2024 15:01:00 9.7 8.4-10.2 ( mg/dL) Final Protein 06/17/2024 15:01:00 7.3 6.0-8.3 (g /dL) Final ALT (Alanine aminotransferase) 06/17/2024 15:01:00 30 10-35 (U/L) Khang mena Performing Location LABORATORY [facility] - [address] [place] [address] [place] [address]
--- OUTSIDE RECORDS SUMMARY | 2024-07-16 16:51 | External Medical Summary | Summary of Care ---
Author Name Unknown Organization [facility] Address [address] [facility] [place] [address] Phone [phone] Care Team Providers Care Turbine Operator Name Role Phone Yazmin Regan PA-C Primary Care Provider [phone]- [phone] Reason for Visit * Reason Onset Date Comments Precert Pending 07/07/2024 07/08/2024 STRESS ECHO IS NOT APPROVED FOR [facility] Encounter Details Date Type Department Care Team (Late st Contact Info) Description 07/07/2024 Telephone [facility] [address] [place] [phone] Enrique Seymour MD [address] [place] [phone] Precert Pending (07/08/2024 STRESS [...] encounter Miscellaneous Notes * Telephone Encounter - Yazmin Regan PA-C - 07/08/2024 9:59 AM EST Peer to peer completed. Testing approved. Confirmation #[id number]. * Telephone Encounter - Shannon Mcqueen LPN - 07/08/2024 9:42 AM EST Spoke with Yazmin at this ECHO Stress Test- phone number provide case# [id number]. To get a Peer to Peer scheduled at this time, spoke with Sienna. * Telephone Encounter - Alvin Elias CRNP - 07/07/2024 4:05 PM EST Will wait for Dr. Seymour to address this. * Telephone Encounter - Jayyln Garrett OSA - 07/07/2024 3:09 PM EST Good Afternoon, I have been checking on the [address] Exercise Stress Echo that is on the schedule for tomorrow at [facility] and per [employer]JACOB the third constitution party satellite manager that study is NOT APPROVED. I called and advised the patient to call and speak with you to see how to proceed. These cases can take 10-15 business days for the medical communication specialist to review. Please advise on how you wish to proceed. Thank you, Jaylyn documented in this encounter Plan of Treatment Upcoming Encounters Date Type Department Care Team (Late st Contact Info) Description 07/08/2024 10:45 AM EST [address]ment [address] [place] [address] 08/04/2024 8:20 AM EST Office Visit [facility] [address] [place] [phone] Yazmin Regan PA-C [address] [place] [phone] 11/10/2024 10:00 AM EDT Office Visit Cardiology, [place] [address] [place] [phone] Ashley Lofton MD [address] [facility] [place], [place] [id number] Health Maintenance Due Date Last Done Comments DTap/Tdap Vaccines (1 - Tdap) 09/18/1964 VITAMIN D LEVEL ONCE IN A LIFETIME-USE SMARTSET# [id number] 1984 Pneumococcal Vaccine: 50+ Years (1 of [...] filedocumented as of this encounter Care Teams Turbine Operator Relationship Specialty Start Date End Date Yazmin Regan PA-C [address] [facility] [address] [place] [address] PCP - General Physician Staff Genetic Counselor 09/21/19 documented as of this encounter
--- NOTE | 2024-07-16 16:53 | ED Triage Note ---
Date of Service July 16, 2024 Provider in Triage Author: Aziza Woo History of Present Illness This patient was briefly evaluated while in triage. An abbreviated physical exam was performed. This patient is a 78-year-old Female who presents to the ED for evaluation of "cardiac issues." She woke up at 3 am with left sided chest pain, jaw pain and arm pain. She is unsure how long pain lasted - maybe 30 minutes. She is now having back pain with some occasional heaviness. She is having some shortness of breath with exertion. She admits that she has had some similar symptoms over the past month. She was seen at the [facility] last month for the symptoms. No cardiac history. Physical Exam GENERAL: Non-toxic and in no acute distress. HEENT: Pupils equal. No obvious scleral icterus. HEART: Regular rate and rhythm. LUNGS: Clear to auscultation. No accessory muscle use. NEURO: Alert and oriented. No obvious neurological deficits on quick neuro exam. Initial orders for labs and / or imaging were placed and patient was placed in the waiting area until a bed is available. Please see further documentation for the full ED course.
--- NOTE | 2024-07-16 17:16 | XRay Report ---
Chest radiograph, one view History: Chest pain Comparison: 06/23/2017 Findings: Single AP view of the chest performed. No focal consolidation or pleural effusion. No pneumothorax. The cardiomediastinal silhouette is within normal limits. Normal pulmonary vascularity. No evidence for lymphadenopathy. No visualized bony or soft tissue abnormality. Impression: Normal chest radiograph Electronically signed by Medhat Hughes 07-16-2024 5:15 PM
[2024-07-16 17:30] LABS: Basophils # (auto) 0.11 K/uL (0.00-0.20); Eosinophils # (auto) 0.15 K/uL (0.00-0.50); Eosinophils % (auto) 1.4 %; Hematocrit (blood only) 43.5 % (37.0-47.0); Hemoglobin 14.2 g/dl (12.0-16.0); Immature Granulocytes # (auto) 0.03 K/uL (0.01-0.20); Immature Granulocytes % (auto) 0.3 %; Lymphocytes % (auto) 31.3 %; Mean Corpuscular Hemoglobin 28.1 pg (25.0-34.0); Mean Corpuscular Hgb Conc 32.6 g/dL (32.0-36.0); Mean Platelet Volume 9.4 fL (9.4-12.4); Monocytes # (auto) 0.58 K/uL (0.11-0.59); Monocytes % (auto) 5.5 %; Neutrophils # (auto) 6.39 K/uL (1.40-6.50); Neutrophils % (auto) 60.5 %; Platelet Count 405 K/uL (130-400); RDW Coefficient of Variation 13.5 % (11.5-14.5); RDW Standard Deviation 41.8 fL (36.4-46.3); Red Blood Count 5.06 M/uL (4.20-5.40); White Blood Count 10.56 K/ul (4.8-10.8)
[2024-07-16 17:52] LABS: Albumin Globulin Ratio 1.8 (0.9-2); Albumin Level 5.1 gm/dl (3.4-5.0); BUN Creatinine Ratio 21.1 (10-20); Bilirubin,Total 0.7 mg/dl (0.2-1.0); Calcium 10.1 mg/dl (8.6-10.3); Creatinine Clr Calc Pharmacy 44.3 ml/min; Globulin 2.9 gm/dl (2.5-4.0); Potassium 4.4 mmol/L (3.5-5.1)
[2024-07-16 17:58] LABS: Troponin I High Sensitivity 5.8 pg/ml (0-14)
[2024-07-16 18:00] LABS: Magnesium 2.3 mg/dl (1.7-2.4)
[2024-07-16 18:37] LABS: D Dimer 340 ug/L FEU (0-500)
[2024-07-16] MEDS: OPTIRAY 320 125ml IV ONE (19:18)
[2024-07-16] MEDS: ACETAMINOPHEN 1,000 MG/100 ML VIAL IV STA (19:42)
[2024-07-16] MEDS: SODIUM CHLORIDE 0.9% 1,000 ML IV SCH (19:43)
[2024-07-16] MEDS: FAMOTIDINE 20MG IV PUSH 20 MG/5 ML SYR IV STA (19:43)
--- NOTE | 2024-07-16 20:39 | CT Scan Report ---
Exam(s): CTA CHEST EXAM: CT Angiography Chest With Intravenous Contrast CLINICAL HISTORY: PE, sob, cp. TECHNIQUE: Axial computed tomographic angiography images of the chest with intravenous contrast. CTDI is 30.11 mGy and DLP is 573.75 mGy-cm. Automated exposure control was utilized for the study. A dose lowering technique was utilized adhering to the principles of ALARA. MIP reconstructed images were created and reviewed. COMPARISON: No relevant prior studies available. FINDINGS: Pulmonary arteries: No evidence for pulmonary embolism. Aorta: No acute findings. No thoracic aortic aneurysm. Lungs: Dependent subsegmental ground-glass changes in the posterior costophrenic margins of the lower lobes. No lobar consolidation. Pleural space: Unremarkable. No significant effusion. No pneumothorax. Heart: Unremarkable. No cardiomegaly. No significant pericardial effusion. Bones/joints: No acute fracture. No dislocation. Soft tissues: Unremarkable. Lymph nodes: Unremarkable. No enlarged lymph nodes. IMPRESSION: 1. No evidence for pulmonary embolism. 2. Dependent subsegmental ground-glass changes in the posterior costophrenic margins of the lower lobes are presumed dependent atelectasis. No lobar consolidation. No pleural effusion or pneumothorax. Electronically signed by: Dimitri Montejo MD 07/16/24 20:38 PM
--- NOTE | 2024-07-16 21:42 | Emergency Department Note ---
Impression & Plan Chest pain, CANTRELL (dyspnea on exertion), Hypertension ED Provider Note ED Provider Note NAME: WAYNE STYLES AGE:78 SEX: Female : 1945 ARRIVES VIA: Private vehicle INFORMANT: Patient ED PROVIDER(s): Jaylyn Gan DO CHIEF COMPLAINT: Chest pain, dyspnea on exertion HPI: This is a 78-year-old female who presents to the emergency department due to concern for chest pain and dyspnea with exertion. Patient states symptoms began late summer and have slowly increased in frequency and severity. Patient states due to concern for her symptoms she was seen at [facility] last week and had a treadmill stress test and echo. She states she could not complete the stress test and so they scheduled her for a nuclear stress test next week. Patient denies any cardiac history. States she takes no medications on a routine basis and does not have a PCP. She states her blood pressures typically are well-appearing however while at [facility] and on arrival here she was noted to have high blood pressure. They did ask her to take her blood pressure at home each day to then discuss possible need for antihypertensive medications. Patient does have a prior history of PE although states this was after she had a femur fracture and subsequent surgery. She has not had any further blood clots since. She denies any recent fevers, chills, or illness. No recent change in medications. No change in bowel or bladder function. No recent leg swelling. Patient states symptoms today occurred again and seem more severe compared to prior and occurred with less exertion than prior. PAST MEDICAL HISTORY:See Below PAST SURGICAL HISTORY:See Below FAMILY HISTORY:See Below SOCIAL HISTORY:See Below HOME MEDICATIONS:See Below ALLERGIES:See Below VITALS:See Below PHYSICAL EXAMINATION: GENERAL: alert, well appearing, well nourished, no distress, non-toxic EYE EXAM: normal conjunctiva, PERRL and EOM's grossly intact OROPHARYNX: no exudate, no erythema, lips, buccal mucosa, and tongue normal and mucous membranes are moist NECK: supple, no nuchal rigidity, no adenopathy, non-tender LUNGS: Clear to auscultation. Normal chest wall mechanics, no w/r/r HEART: no murmurs, S1 normal and S2 normal, no reproducible pain with palpation. ABDOMEN: abdomen soft, non-tender, normo-active bowel sounds, no masses, no rebound or guarding. BACK: Back is symmetrical on inspection and there is no deformity SKIN: no rashes, petechiae, orbruising UPPER EXTREMITIES: upper extremities are grossly normal. FROM, nml pulses b/l. LOWER EXTREMITIES: No pitting edema. FROM, nml pulses b/l. NEURO EXAM: Normal sensorium, cranial nerves II-XII grossly intact, normal speech, no facial droop,nogross weakness of arms, no gross weakness of legs. Gross sensation intact. No ataxia. Vital Signs: reviewed and remarkable Differential Diagnosis: acute coronary syndrome, pericarditis, pulmonary embolus, aortic dissection, pneumonia, pneumothorax, musculoskeletal pain, shingles, GERD, GI bleed, as well as others were considered MEDICAL DECISION MAKING: This is a 78-year-old female who presents to the emergency department due to concern for exertional chest pain and dyspnea as well as hypertension noted. She was afebrile and otherwise hemodynamically stable. Labs drawn and sent, IV established, EKG and chest ray performed at bedside and interpreted by me. Patient's initial troponin negative, D-dimer negative, BNP negative. Was able to review her recent evaluation done at [facility] last week including the echo. Patient given IV Tylenol and IV Pepcid here. She was given gentle IV fluid hydration. Patient ambulated here and did have discomfort however no overt hypoxia. No ectopy or dysrhythmia noted on telemetry. After further discussion of differential diagnosis, and patient's lack of ongoing primary care, CT of the chest was also performed. No evidence of aortic aneurysm, pericardial effusion, or other pulmonary pathology. After further discussion at bedside and after finding that her stress test could not be completed last week as an outpatient due to evolving dyspnea and the echo noting mild hypokinesis in certain segments, we discussed further inpatient evaluation. Patient and family at bedside verbalized understanding were in agreement with the plan. Case discussed with the hospitalist team additionally. Consultation(s): 2149: Discussed with Dr. Stanley, [facility] hospitalist team, for additional evaluation and management. ER Treatment Provided: See below Diagnostics Interpreted By Me: -ECG: Normal sinus at 79, rightward axis, normal intervals, -Cardiac Monitoring: An order was placed for continuous cardiac monitoring. The monitor shows a rate of 78 with normal sinus rhythm. -Laboratory studies: As stated above and show below. -Imaging studies: X-ray Chest: A single view study of the chest was reviewed and was negative for cardiomegaly, focal infiltrate, effusion, pulmonary edema, or wide mediastinum. Triage Nursing Note Reviewed Prior/Outside Records Reviewed - Outpatient echo from 07/08/2024 reviewed Past Med/Surg History Problem List (Updated 07/17/24 @ 14:45 by Charles Kelly MD) Hypothyroidism (acquired) Chest pressure Abnormal EKG Equivocal stress echocardiogram Hypertensive crisis Hypertension (Acute) CANTRELL (dyspnea on exertion) (Acute) Chest pain (Acute) Femur fracture, left Pulmonary embolism Social History Smoking Status: Never smoker Hx Alcohol Use: No Hx Substance Use: No Preferred Language: Tristanian Communication Ability: Effective Soils Analyst Required: No Beliefs That Will Affect Care: None Feels Safe at Home: Yes Safety Concerns: Feels Safe At This Time Allergies Allergies Allergy/AdvReac Type Severity Reaction Status Date / Time cephalexin Allergy Intermediate RASH Verified 07/16/24 21:54 Home Meds Home Medications Medication Instructions Recorded Confirmed aspirin 325 mg tablet 650 mg PO DAILY PRN Chest Pain 07/16/24 07/16/24 Results & Data (ED) Vital Signs Vital Signs - 24 hr 07/16/24 19:00 07/16/24 20:42 07/16/24 20:59 Pulse Rate Pulse Rate [Apical] 63 60 Pulse Rate [Exercises] 49 L Pulse Rate [Resting] 74 Respiratory Rate 14 17 Respiratory Rate [Exercises] 25 H Respiratory Rate [Resting] 18 Respiratory Effort / Characteristics Non-Labored Non-Labored Spontaneous Respiratory Depth Normal Normal Respiratory Pattern Regular Blood Pressure Blood Pressure [Right Arm] 163/83 H 150/81 H Blood Pressure Mean Blood Pressure Mean [Right Arm] 109 104 Pulse Oximetry 98 95 Pulse Oximetry [Exercises] 91 Pulse Oximetry [Resting] 95 Oxygen Delivery Method Room Air Room Air Room Air 07/16/24 21:46 07/16/24 22:59 07/16/24 23:00 Pulse Rate 59 L Pulse Rate [Apical] 65 61 Pulse Rate [Exercises] Pulse Rate [Resting] Respiratory Rate 16 22 Respiratory Rate [Exercises] Respiratory Rate [Resting] Respiratory Effort / Characteristics Non-Labored Spontaneous Non-Labored Spontaneous Respiratory Depth Normal Normal Respiratory Pattern Blood Pressure Blood Pressure [Right Arm] 188/92 H 184/85 H Blood Pressure Mean Blood Pressure Mean [Right Arm] 124 118 Pulse Oximetry 96 97 Pulse Oximetry [Exercises] Pulse Oximetry [Resting] Oxygen Delivery Method Room Air Room Air 07/17/24 00:00 07/17/24 01:04 07/17/24 02:00 Pulse Rate 63 58 L 62 Pulse Rate [Apical] Pulse Rate [Exercises] Pulse Rate [Resting] Respiratory Rate 16 16 16 Respiratory Rate [Exercises] Respiratory Rate [Resting] Respiratory Effort / Characteristics Respiratory Depth Respiratory Pattern Blood Pressure 162/92 H 180/94 H 179/89 H Blood Pressure [Right Arm] Blood Pressure Mean 131 110 105 Blood Pressure Mean [Right Arm] Pulse Oximetry 97 98 99 Pulse Oximetry [Exercises] Pulse Oximetry [Resting] Oxygen Delivery Method Room Air Room Air Room Air 07/17/24 02:19 07/17/24 02:19 07/17/24 03:00 Pulse Rate 69 56 L Pulse Rate [Apical] 67 Pulse Rate [Exercises] Pulse Rate [Resting] Respiratory Rate 18 16 16 Respiratory Rate [Exercises] Respiratory Rate [Resting] Respiratory Effort / Characteristics Respiratory Depth Respiratory Pattern Blood Pressure 171/97 H 151/89 H Blood Pressure [Right Arm] 171/97 H Blood Pressure Mean 121 109 Blood Pressure Mean [Right Arm] 121 Pulse Oximetry 98 98 99 Pulse Oximetry [Exercises] Pulse Oximetry [Resting] Oxygen Delivery Method Room Air Room Air Room Air Laboratory Data 07/17/24 06:39 07/17/24 06:39 Lab Results 07/16/24 07/16/24 Range/Units 17:06 22:53 WBC 10.56 (4.8-10.8) K/ul RBC 5.06 (4.20-5.40) M/uL Hgb 14.2 (12.0-16.0) g/dl Hct 43.5 (37.0-47.0) % MCV 86.0 (80.0-100.0) fL MCH 28.1 (25.0-34.0) pg MCHC 32.6 (32.0-36.0) g/dL RDW Std Deviation 41.8 (36.4-46.3) fL RDW Coeff of Laci 13.5 (11.5-14.5) % Plt Count 405 H (130-400) K/uL MPV 9.4 (9.4-12.4) fL Immature Gran % (Auto) 0.3 % Neut % (Auto) 60.5 % Lymph % (Auto) 31.3 % [place] % (Auto) 5.5 % Eos % (Auto) 1.4 % Baso % (Auto) 1.0 % Neut # (Auto) 6.39 (1.40-6.50) K/uL Lymph # (Auto) 3.30 (1.20-3.40) K/uL [place] # (Auto) 0.58 (0.11-0.59) K/uL Eos # (Auto) 0.15 (0.00-0.50) K/uL Baso # (Auto) 0.11 (0.00-0.20) K/uL Immature Gran # (Auto) 0.03 (0.01-0.20) K/uL D-Dimer 340 (0-500) ug/L FEU Sodium 137 (136-145) mmol/L Potassium 4.4 (3.5-5.1) mmol/L Chloride 102 (98-107) mmol/L Carbon Dioxide 27 (21-32) mmol/L Anion Gap 8 (3-11) BUN 20 (6-23) mg/dl Creatinine 0.95 (0.6-1.2) mg/dl Est Cr Clr Drug Dosing 44.3 ml/min eGFR 60.95 BUN/Creatinine Ratio 21.1 H (10-20) Glucose 99 (70-99(Fasting)) mg/dl Calcium 10.1 (8.6-10.3) mg/dl Magnesium 2.3 (1.7-2.4) mg/dl Total Bilirubin 0.7 (0.2-1.0) mg/dl AST 29 (13-39) U/L ALT 26 (7-52) U/L Alkaline Phosphatase 67 (34-104) U/L Troponin I High Sens 5.8 6.8 (0-14) pg/ml B-Natriuretic Peptide 38 (0-100) pg/ml Total Protein 8.0 (6.0-8.3) gm/dl Albumin 5.1 H (3.4-5.0) gm/dl Globulin 2.9 (2.5-4.0) gm/dl Albumin/Globulin Ratio 1.8 (0.9-2) Lipase 9 L (11-82) U/L Administered Medications Hydrochlorothiazide (Hydrochlorothiazide 25 Mg Tab) 25 mg PO QAM [facility] Stop: 08/16/24 14:44 Last Admin: 07/17/24 15:08 Dose: 25 mg Documented By: RACHEL Levothyroxine Sodium (Levothyroxine Sodium 25 Mcg Tablet) 25 mcg PO DAILYBB ABDIAS Stop: 08/16/24 06:29 Last Admin: 07/17/24 06:38 Dose: 25 mcg Documented By: RAMÍREZ Lorazepam (Lorazepam 0.5 Mg Tab) 0.5 mg PO TID PRN PRN Reason: Anxiety Stop: 08/16/24 03:40 Last Admin: 07/17/24 05:44 Dose: 0.5 mg Documented By: RAMÍREZ Discontinued Medications Sodium Chloride (Nss) 1,000 mls @ 125 mls/hr IV .Q8H ABDIAS Stop: 07/17/24 18:59 Last Infusion: 07/16/24 23:48 Dose: Infused Documented By: Admin: 07/16/24 19:43 Dose: 125 mls/hr Documented By: MICKEY Acetaminophen (Ofirmev) 1,000 mg in 100 mls @ 400 mls/hr IV NOW STA Stop: 07/16/24 19:48 Last Infusion: 07/16/24 20:12 Dose: Infused Documented By: Admin: 07/16/24 19:42 Dose: 400 mls/hr Documented By: MICKEY Famotidine (Pepcid 20mg Iv Push) 20 mg in 5 mls @ 2.5 mls/min IV NOW STA Stop: 07/16/24 19:35 Last Admin: 07/16/24 19:43 Dose: 2.5 mls/min Documented By: MICKEY Sodium Chloride (Nss) 1,000 mls @ 50 mls/hr IV .Q20H ONE Stop: 07/17/24 17:51 Last Admin: 07/16/24 23:45 Dose: 50 mls/hr Documented By: NISH Ioversol (Optiray 320 125ml) 80 ml IV ONCE ONE Stop: 07/16/24 19:18 Last Admin: 07/16/24 19:18 Dose: 80 ml Documented By: ZOË Ioversol (Optiray 320 125ml) 120 ml IV ONCE ONE Stop: 07/17/24 10:19 Last Admin: 07/17/24 10:19 Dose: 120 ml Documented By: RUMA Lisinopril (Lisinopril 2.5 Mg Tab) 2.5 mg PO NOW STA Stop: 07/16/24 21:56 Last Admin: 07/16/24 22:07 Dose: 2.5 mg Documented By: CASIE Lisinopril (Lisinopril 2.5 Mg Tab) 2.5 mg PO NOW STA Stop: 07/17/24 02:00 Last Admin: 07/17/24 02:19 Dose: 2.5 mg Documented By: NISH Lisinopril (Lisinopril 5 Mg Tab) 5 mg PO NOW STA Stop: 07/17/24 05:56 Last Admin: 07/17/24 06:40 Dose: Not Given Documented By: HH Lisinopril (Lisinopril 10 Mg Tab) 10 mg PO ONCE ONE Stop: 07/17/24 10:31 Last Admin: 07/17/24 10:52 Dose: 10 mg Documented By: RACHEL Imaging Data Radiologist's Impression: Chest X-Ray 07/16/24 16:53 Chest radiograph, one view History: Chest pain Comparison: 06/23/2017 Findings: Single AP view of the chest performed. No focal consolidation or pleural effusion. No pneumothorax. The cardiomediastinal silhouette is within normal limits. Normal pulmonary vascularity. No evidence for lymphadenopathy. No visualized bony or soft tissue abnormality. Impression: Normal chest radiograph Electronically signed by Medhat Hughes 07-16-2024 5:15 PM Chest CTA 07/16/24 18:54 Exam(s): CTA CHEST EXAM: CT Angiography Chest With Intravenous Contrast CLINICAL HISTORY: PE, sob, cp. TECHNIQUE: Axial computed tomographic angiography images of the chest with intravenous contrast. CTDI is 30.11 mGy and DLP is 573.75 mGy-cm. Automated exposure control was utilized for the study. A dose lowering technique was utilized adhering to the principles of ALARA. MIP reconstructed images were created and reviewed. COMPARISON: No relevant prior studies available. FINDINGS: Pulmonary arteries: No evidence for pulmonary embolism. Aorta: No acute findings. No thoracic aortic aneurysm. Lungs: Dependent subsegmental ground-glass changes in the posterior costophrenic margins of the lower lobes. No lobar consolidation. Pleural space: Unremarkable. No significant effusion. No pneumothorax. Heart: Unremarkable. No cardiomegaly. No significant pericardial effusion. Bones/joints: No acute fracture. No dislocation. Soft tissues: Unremarkable. Lymph nodes: Unremarkable. No enlarged lymph nodes. IMPRESSION: 1. No evidence for pulmonary embolism. 2. Dependent subsegmental ground-glass changes in the posterior costophrenic margins of the lower lobes are presumed dependent atelectasis. No lobar consolidation. No pleural effusion or pneumothorax. Electronically signed by: Dimitri Montejo MD 07/16/24 20:38 PM Discharge Plan Visit Data Chief Complaint: Cardiac Assessment Stated Complaint: CARDIAC ASSESSMENT ED Provider: Jaylyn Gan Discharge Problem: Chest pain, CANTRELL (dyspnea on exertion), Hypertension Patient Disposition: Admitted As Inpatient Discharge Instructions Interventions: ED Discharge Assessment Last Done: 07/17/24 04:35
[2024-07-16] MEDS: lisinopril 2.5 MG TAB PO STA (22:07)
[2024-07-16] MEDS: SODIUM CHLORIDE 0.9% 1,000 ML IV ONE (23:45)
[2024-07-17] MEDS ORDERED: NITROGLYCERIN SL 0.4 MG/TAB TAB SL PRN (01:59)
[2024-07-17] MEDS: lisinopril 2.5 MG TAB PO STA (02:19)
--- NOTE | 2024-07-17 03:22 | CT Scan Report ---
EXAM: CT head/brain wo con CLINICAL HISTORY: Phillips, htn crisis. TECHNIQUE: An axial non-contrast CT scan of the brain was performed from the skull base to the high parietal region. One of the following dose-reduction techniques was utilized for this exam. Automated exposure control, adjustment of the mA and/or kV according to patient size, and use of iterative reconstruction. CT scan performed according to ALARA principles. clp: 547.7 mGy-cm, ctdi: 38.10 mGy. COMPARISON: None. FINDINGS: Prominent and hyperdense dural reflections/tentorium However no definite hemorrhage is identified, Advised MRI with SWI images or follow-up if clinically warranted A few tiny ill-defined djk-hr-vvtpurloq areas are noted bilaterally in the subcortical and deep white matter, suggesting microvascular ischemic changes. The ventricular system, cortical sulci, and basal cisterns are prominent and consistent with senile changes. The brain parenchyma shows a normal appearance. Garcias-white matter differentiation is maintained. No midline shifts or deformity. No intracerebral or extra axial hematoma. Normal CT appearance of the posterior fossa structures namely the cerebellar hemispheres, brainstem, and cerebellar peduncles. The bony structures in the skull base are unremarkable. There are no definite calvarium fractures. The scanned paranasal sinuses are clear. IMPRESSION: 1. Prominent and hyperdense dural reflections/tentorium However no definite hemorrhage is identified, Advised MRI with SWI images or follow-up if clinically warranted. 2. Microvascular white matter ischemic changes and senile changes. 3. No intra or extra-axial hematomas or parenchymal territorial hypodense areas suggest acute ischemic insult. 4. Early changes of stroke may not be detected on a CT scan. If there is strong clinical suspicion of stroke, then suggest MRI with diffusion-weighted imaging. Electronically signed by Suzanne Dueñas 07-17-2024 03:22 AM
--- NOTE | 2024-07-17 03:38 | History & Physical Report ---
Date of Service July 17, 2024 History of Present Illness Chief Complaint: Chest pain Primary Care Provider: Yazmin Regan PA-C History obtained from patient, family, and records. Medical history significant for postop PE status post anticoagulation. Last confinement 2017 under Orthopedics service for right femur fracture status post surgery. 3 months history of intermittent substernal/epigastric discomfort associated with SOB symptoms worse with exertion. No unusual cough symptoms. [facility] ER visit last month. Outpatient exercise stress test done at [facility] facility last week following outpatient PCP visit. Limited test due to reduced exercise tolerance. Stress test terminated due to shortness of breath. Max BP 164/102. Anterior septum mildly hypokinetic which may be due to hypertensive blood pressure response. EF 55 to 59%. Symptoms more pronounced this week. Allergies Allergy/AdvReac Type Severity Reaction Status Date / Time cephalexin Allergy Intermediate RASH Verified 07/16/24 21:54 Home Medications Medication Instructions Recorded Confirmed Type aspirin 325 mg tablet 650 mg PO DAILY PRN Chest Pain 07/16/24 07/16/24 History Past Med/Surg History Problem List (Updated 07/16/24 @ 21:42 by Jaylyn Gan DO) Hypertension (Acute) CANTRELL (dyspnea on exertion) (Acute) Chest pain (Acute) Femur fracture, left Pulmonary embolism Social History Smoking Status: Never smoker Hx Alcohol Use: No Hx Substance Use: No Preferred Language: Icelandic Communication Ability: Effective [facility] Director Required: No Beliefs That Will Affect Care: None Feels Safe at Home: Yes Safety Concerns: Feels Safe At This Time Results & Data Results & Data Vital Signs (Past 12 Hours) Vital Signs Temp Pulse Pulse Pulse Pulse Resp Resp 07/17/24 02:19 67 18 07/17/24 01:04 58 L 16 07/17/24 00:00 63 16 07/16/24 23:00 61 22 07/16/24 22:59 59 L 07/16/24 21:46 65 16 07/16/24 20:59 49 L 74 25 H 07/16/24 20:42 60 17 07/16/24 19:00 63 14 07/16/24 18:03 68 18 07/16/24 17:30 74 19 07/16/24 17:28 82 07/16/24 17:23 07/16/24 17:23 77 20 07/16/24 17:23 07/16/24 17:21 78 21 07/16/24 16:49 36.7 C 83 22 Resp BP BP Pulse Ox Pulse Ox Pulse Ox O2 Del Method 07/17/24 02:19 171/97 H 98 Room Air 07/17/24 01:04 180/94 H 98 Room Air 07/17/24 00:00 162/92 H 97 Room Air 07/16/24 23:00 184/85 H 97 Room Air 07/16/24 22:59 07/16/24 21:46 188/92 H 96 Room Air 07/16/24 20:59 18 91 95 Room Air 07/16/24 20:42 150/81 H 95 Room Air 07/16/24 19:00 163/83 H 98 Room Air 07/16/24 18:03 178/87 H 96 Room Air 07/16/24 17:30 181/95 H 98 Room Air 07/16/24 17:28 07/16/24 17:23 98 Room Air 07/16/24 17:23 198/93 H 98 Room Air 07/16/24 17:23 98 Room Air 07/16/24 17:21 198/93 H 97 Room Air 07/16/24 16:49 184/108 H 98 Room Air Laboratory Results Laboratory Results WBC 10.56 K/ul (4.8-10.8) 07/16/24 17:06 RBC 5.06 M/uL (4.20-5.40) 07/16/24 17:06 Hgb 14.2 g/dl (12.0-16.0) 07/16/24 17:06 Hct 43.5 % (37.0-47.0) 07/16/24 17:06 MCV 86.0 fL (80.0-100.0) 07/16/24 17:06 MCH 28.1 pg (25.0-34.0) 07/16/24 17:06 MCHC 32.6 g/dL (32.0-36.0) 07/16/24 17:06 RDW Std Deviation 41.8 fL (36.4-46.3) 07/16/24 17:06 RDW Coeff of Laci 13.5 % (11.5-14.5) 07/16/24 17:06 Plt Count 405 K/uL (130-400) H 07/16/24 17:06 MPV 9.4 fL (9.4-12.4) 07/16/24 17:06 Immature Gran % (Auto) 0.3 % 07/16/24 17:06 Neut % (Auto) 60.5 % 07/16/24 17:06 Lymph % (Auto) 31.3 % 07/16/24 17:06 [place] % (Auto) 5.5 % 07/16/24 17:06 Eos % (Auto) 1.4 % 07/16/24 17:06 Baso % (Auto) 1.0 % 07/16/24 17:06 Neut # (Auto) 6.39 K/uL (1.40-6.50) 07/16/24 17:06 Lymph # (Auto) 3.30 K/uL (1.20-3.40) 07/16/24 17:06 [place] # (Auto) 0.58 K/uL (0.11-0.59) 07/16/24 17:06 Eos # (Auto) 0.15 K/uL (0.00-0.50) 07/16/24 17:06 Baso # (Auto) 0.11 K/uL (0.00-0.20) 07/16/24 17:06 Immature Gran # (Auto) 0.03 K/uL (0.01-0.20) 07/16/24 17:06 D-Dimer 340 ug/L FEU (0-500) 07/16/24 17:06 Sodium 137 mmol/L (136-145) 07/16/24 17:06 Potassium 4.4 mmol/L (3.5-5.1) 07/16/24 17:06 Chloride 102 mmol/L (98-107) 07/16/24 17:06 Carbon Dioxide 27 mmol/L (21-32) 07/16/24 17:06 Anion Gap 8 (3-11) 07/16/24 17:06 BUN 20 mg/dl (6-23) 07/16/24 17:06 Creatinine 0.95 mg/dl (0.6-1.2) 07/16/24 17:06 Est Cr Clr Drug Dosing 44.3 ml/min 07/16/24 17:06 eGFR 60.95 07/16/24 17:06 BUN/Creatinine Ratio 21.1 (10-20) H 07/16/24 17:06 Glucose 99 mg/dl (70-99(Fasting)) 07/16/24 17:06 Calcium 10.1 mg/dl (8.6-10.3) 07/16/24 17:06 Magnesium 2.3 mg/dl (1.7-2.4) 07/16/24 17:06 Total Bilirubin 0.7 mg/dl (0.2-1.0) 07/16/24 17:06 AST 29 U/L (13-39) 07/16/24 17:06 ALT 26 U/L (7-52) 07/16/24 17:06 Alkaline Phosphatase 67 U/L (34-104) 07/16/24 17:06 Troponin I High Sens 6.8 pg/ml (0-14) 07/16/24 22:53 B-Natriuretic Peptide 38 pg/ml (0-100) 07/16/24 17:06 Total Protein 8.0 gm/dl (6.0-8.3) 07/16/24 17:06 Albumin 5.1 gm/dl (3.4-5.0) H 07/16/24 17:06 Globulin 2.9 gm/dl (2.5-4.0) 07/16/24 17:06 Albumin/Globulin Ratio 1.8 (0.9-2) 07/16/24 17:06 Lipase 9 U/L (11-82) L 07/16/24 17:06 Impressions Chest X-Ray 07/16/24 16:53 Chest radiograph, one view History: Chest pain Comparison: 06/23/2017 Findings: Single AP view of the chest performed. No focal consolidation or pleural effusion. No pneumothorax. The cardiomediastinal silhouette is within normal limits. Normal pulmonary vascularity. No evidence for lymphadenopathy. No visualized bony or soft tissue abnormality. Impression: Normal chest radiograph Electronically signed by Medhat Hughes 07-16-2024 5:15 PM Chest CTA 07/16/24 18:54 Exam(s): CTA CHEST EXAM: CT Angiography Chest With Intravenous Contrast CLINICAL HISTORY: PE, sob, cp. TECHNIQUE: Axial computed tomographic angiography images of the chest with intravenous contrast. CTDI is 30.11 mGy and DLP is 573.75 mGy-cm. Automated exposure control was utilized for the study. A dose lowering technique was utilized adhering to the principles of ALARA. MIP reconstructed images were created and reviewed. COMPARISON: No relevant prior studies available. FINDINGS: Pulmonary arteries: No evidence for pulmonary embolism. Aorta: No acute findings. No thoracic aortic aneurysm. Lungs: Dependent subsegmental ground-glass changes in the posterior costophrenic margins of the lower lobes. No lobar consolidation. Pleural space: Unremarkable. No significant effusion. No pneumothorax. Heart: Unremarkable. No cardiomegaly. No significant pericardial effusion. Bones/joints: No acute fracture. No dislocation. Soft tissues: Unremarkable. Lymph nodes: Unremarkable. No enlarged lymph nodes. IMPRESSION: 1. No evidence for pulmonary embolism. 2. Dependent subsegmental ground-glass changes in the posterior costophrenic margins of the lower lobes are presumed dependent atelectasis. No lobar consolidation. No pleural effusion or pneumothorax. Electronically signed by: Dimitri Montejo MD 07/16/24 20:[address] 07/16/24 22:29 EXAM: CT head/brain wo con CLINICAL HISTORY: Phillips, htn crisis. TECHNIQUE: An axial non-contrast CT scan of the brain was performed from the skull base to the high parietal region. One of the following dose-reduction techniques was utilized for this exam. Automated exposure control, adjustment of the mA and/or kV according to patient size, and use of iterative reconstruction. CT scan performed according to ALARA principles. clp: 547.7 mGy-cm, ctdi: 38.10 mGy. COMPARISON: None. FINDINGS: Prominent and hyperdense dural reflections/tentorium However no definite hemorrhage is identified, Advised MRI with SWI images or follow-up if clinically warranted A few tiny ill-defined fsi-wg-[id number] areas are noted bilaterally in the subcortical and deep white matter, suggesting microvascular ischemic changes. The ventricular system, cortical sulci, and basal cisterns are prominent and consistent with senile changes. The brain parenchyma shows a normal appearance. Garcias-white matter differentiation is maintained. No midline shifts or deformity. No intracerebral or extra axial hematoma. Normal CT appearance of the posterior fossa structures namely the cerebellar hemispheres, brainstem, and cerebellar peduncles. The bony structures in the skull base are unremarkable. There are no definite calvarium fractures. The scanned paranasal sinuses are clear. IMPRESSION: 1. Prominent and hyperdense dural reflections/tentorium However no definite hemorrhage is identified, Advised MRI with SWI images or follow-up if clinically warranted. 2. Microvascular white matter ischemic changes and senile changes. 3. No intra or extra-axial hematomas or parenchymal territorial hypodense areas suggest acute ischemic insult. 4. Early changes of stroke may not be detected on a CT scan. If there is strong clinical suspicion of stroke, then suggest MRI with diffusion-weighted imaging. Electronically signed by Suzanne Dueñas 07-17-2024 03:22 AM
[2024-07-17] MEDS ORDERED: oxyCODONE HCL IR 5 MG TAB (IMMEDIATE RELEASE) PO PRN (03:41)
[2024-07-17] MEDS ORDERED: PROMETHAZINE 6.25 MG/50.25 ML BAG IV PRN (03:41)
[2024-07-17] MEDS: LORazepam 0.5 MG TAB PO PRN (05:44)
--- NOTE | 2024-07-17 05:59 | History & Physical Report ---
Date of Service July 17, 2024 Assessment & Plan (1) Hypertensive crisis: Plan: Hypertensive crisis Abnormal CT head (hyperdense dural reflections) New diagnosis primary hypothyroidism on recent outpatient blood work OBS PCU Initiate lisinopril Cardiology consult Re: Chest pain, hypertensive crisis MRI brain Initiate levothyroxine DVT prophylaxis. SCDs Full code Patient daughter requesting updates providers. Ms. Yolanda Block, contact #[phone]. Text document was generated using [employer] voice recognition software. It may contain grammatical or spelling errors. Kindly contact undersigned for clarification of any documentation item in question. Admission and Anticipated Discharge Date Admission Date: July 17, 2024 History of Present Illness Chief Complaint: Chest pain Primary Care Provider: Yazmin Regan PA-C History obtained from patient, family, and records. Medical history significant for postop PE status post anticoagulation. Last confinement 2017 under Orthopedics service for right femur fracture status post surgery. 3 months history of intermittent substernal/epigastric discomfort associated with SOB symptoms worse with exertion. No unusual cough symptoms. [facility] ER visit last month. Outpatient exercise stress test done at [facility] facility last week following outpatient PCP visit. Limited test due to reduced exercise tolerance. Stress test terminated due to shortness of breath. Max BP 164/102. Anterior septum mildly hypokinetic which may be due to hypertensive blood pressure response. EF 55 to 59%. Nuclear stress test recommended by outpatient cardiology provider last week. Outpatient lipid panel and TSH recommended. Serum triglycerides 65, cholesterol 187, HDL 67, LDL 107 TSH 4.85 Free T4 0.8 PCP to discuss abnormal TFTs with patient as per cardiology provider note. Symptoms more pronounced this week mostly on exertion. Some radiation to the left arm. Intermittent achy headache symptoms. Patient taking OTC aspirin for heart protection. Patient brought to ER by family for evaluation. Patient currently chest pain-free. Highest SBP of 200s documented at the ER. 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 Allergies Allergy/AdvReac Type Severity Reaction Status Date / Time cephalexin Allergy Intermediate RASH Verified 07/16/24 21:54 Home Medications Medication Instructions Recorded Confirmed Type aspirin 325 mg tablet 650 mg PO DAILY PRN Chest Pain 07/16/24 07/16/24 History Past Med/Surg History Problem List (Updated 07/17/24 @ 06:04 by Anson Springer MD) Hypertensive crisis Hypertension (Acute) CANTRELL (dyspnea on exertion) (Acute) Chest pain (Acute) Femur fracture, left Pulmonary embolism Social History Smoking Status: Never smoker Hx Alcohol Use: No Hx Substance Use: No Preferred Language: Taiwanese Communication Ability: Effective Edger Liner Required: No Beliefs That Will Affect Care: None Feels Safe at Home: Yes Safety Concerns: Feels Safe At This Time Review of Systems Review of Systems: As per HPI, all other systems reviewed and negative Physical Exam Physical Exam: GENERAL: Comfortable, pleasant, slightly anxious, no respiratory distress SKIN: Normal color, warm HEENT: [place] palpebral conjunctivae, no ptosis, moist buccal mucosa NECK : Supple, no tenderness CHEST : CTA, no tenderness HEART : RRR, no obvious murmurs ABDOMEN: Some distention, nontender EXTREMITIES : No LE swelling/tenderness, no other conspicuous deformities noted NEUROLOGIC : Coherent, no facial asymmetry, no other gross focality Results & Data Results & Data Vital Signs (Past 12 Hours) Vital Signs Temp Pulse Pulse Pulse Pulse Resp Resp 07/17/24 05:03 36.6 C 66 18 07/17/24 05:00 70 16 07/17/24 04:00 70 07/17/24 03:00 56 L 16 07/17/24 02:19 69 16 07/17/24 02:19 67 18 07/17/24 02:00 62 16 07/17/24 01:04 58 L 16 07/17/24 00:00 63 16 07/16/24 23:00 61 22 07/16/24 22:59 59 L 07/16/24 21:46 65 16 07/16/24 20:59 49 L 74 25 H 07/16/24 20:42 60 17 07/16/24 19:00 63 14 07/16/24 18:03 68 18 Resp BP BP Pulse Ox Pulse Ox Pulse Ox O2 Del Method 07/17/24 05:03 194/103 H 98 Room Air 07/17/24 05:00 194/103 H 96 Room Air 07/17/24 04:00 169/99 H 97 Room Air 07/17/24 03:00 151/89 H 99 Room Air 07/17/24 02:19 171/97 H 98 Room Air 07/17/24 02:19 171/97 H 98 Room Air 07/17/24 02:00 179/89 H 99 Room Air 07/17/24 01:04 180/94 H 98 Room Air 07/17/24 00:00 162/92 H 97 Room Air 07/16/24 23:00 184/85 H 97 Room Air 07/16/24 22:59 07/16/24 21:46 188/92 H 96 Room Air 07/16/24 20:59 18 91 95 Room Air 07/16/24 20:42 150/81 H 95 Room Air 07/16/24 19:00 163/83 H 98 Room Air 07/16/24 18:03 178/87 H 96 Room Air Laboratory Results Laboratory Results WBC 6.47 K/ul (4.8-10.8) 07/17/24 06:39 RBC 4.43 M/uL (4.20-5.40) 07/17/24 06:39 Hgb 12.4 g/dl (12.0-16.0) 07/17/24 06:39 Hct 38.7 % (37.0-47.0) 07/17/24 06:39 MCV 87.4 fL (80.0-100.0) 07/17/24 06:39 MCH 28.0 pg (25.0-34.0) 07/17/24 06:39 MCHC 32.0 g/dL (32.0-36.0) 07/17/24 06:39 RDW Std Deviation 42.6 fL (36.4-46.3) 07/17/24 06:39 RDW Coeff of Laci 13.3 % (11.5-14.5) 07/17/24 06:39 Plt Count 334 K/uL (130-400) 07/17/24 06:39 MPV 9.4 fL (9.4-12.4) 07/17/24 06:39 Immature Gran % (Auto) 0.2 % 07/17/24 06:39 Neut % (Auto) 61.6 % 07/17/24 06:39 Lymph % (Auto) 27.0 % 07/17/24 06:39 [place] % (Auto) 7.4 % 07/17/24 06:39 Eos % (Auto) 2.6 % 07/17/24 06:39 Baso % (Auto) 1.2 % 07/17/24 06:39 Neut # (Auto) 3.98 K/uL (1.40-6.50) 07/17/24 06:39 Lymph # (Auto) 1.75 K/uL (1.20-3.40) 07/17/24 06:39 [place] # (Auto) 0.48 K/uL (0.11-0.59) 07/17/24 06:39 Eos # (Auto) 0.17 K/uL (0.00-0.50) 07/17/24 06:39 Baso # (Auto) 0.08 K/uL (0.00-0.20) 07/17/24 06:39 Immature Gran # (Auto) 0.01 K/uL (0.01-0.20) 07/17/24 06:39 D-Dimer 340 ug/L FEU (0-500) 07/16/24 17:06 Sodium 141 mmol/L (136-145) 07/17/24 06:39 Potassium 4.3 mmol/L (3.5-5.1) 07/17/24 06:39 Chloride 109 mmol/L (98-107) H 07/17/24 06:39 Carbon Dioxide 25 mmol/L (21-32) 07/17/24 06:39 Anion Gap 7 (3-11) 07/17/24 06:39 BUN 15 mg/dl (6-23) 07/17/24 06:39 Creatinine 0.83 mg/dl (0.6-1.2) 07/17/24 06:39 Est Cr Clr Drug Dosing 50.7 ml/min 07/17/24 06:39 eGFR 71.67 07/17/24 06:39 BUN/Creatinine Ratio 18.1 (10-20) 07/17/24 06:39 Glucose 88 mg/dl (70-99(Fasting)) 07/17/24 06:39 Calcium 9.1 mg/dl (8.6-10.3) 07/17/24 06:39 Magnesium 2.3 mg/dl (1.7-2.4) 07/16/24 17:06 Total Bilirubin 0.7 mg/dl (0.2-1.0) 07/16/24 17:06 AST 29 U/L (13-39) 07/16/24 17:06 ALT 26 U/L (7-52) 07/16/24 17:06 Alkaline Phosphatase 67 U/L (34-104) 07/16/24 17:06 Troponin I High Sens 6.8 pg/ml (0-14) 07/16/24 22:53 B-Natriuretic Peptide 38 pg/ml (0-100) 07/16/24 17:06 Total Protein 8.0 gm/dl (6.0-8.3) 07/16/24 17:06 Albumin 5.1 gm/dl (3.4-5.0) H 07/16/24 17:06 Globulin 2.9 gm/dl (2.5-4.0) 07/16/24 17:06 Albumin/Globulin Ratio 1.8 (0.9-2) 07/16/24 17:06 Lipase 9 U/L (11-82) L 07/16/24 17:06 Impressions Chest X-Ray 07/16/24 16:53 Chest radiograph, one view History: Chest pain Comparison: 06/23/2017 Findings: Single AP view of the chest performed. No focal consolidation or pleural effusion. No pneumothorax. The cardiomediastinal silhouette is within normal limits. Normal pulmonary vascularity. No evidence for lymphadenopathy. No visualized bony or soft tissue abnormality. Impression: Normal chest radiograph Electronically signed by Medhat Hughes 07-16-2024 5:15 PM Chest CTA 07/16/24 18:54 Exam(s): CTA CHEST EXAM: CT Angiography Chest With Intravenous Contrast CLINICAL HISTORY: PE, sob, cp. TECHNIQUE: Axial computed tomographic angiography images of the chest with intravenous contrast. CTDI is 30.11 mGy and DLP is 573.75 mGy-cm. Automated exposure control was utilized for the study. A dose lowering technique was utilized adhering to the principles of ALARA. MIP reconstructed images were created and reviewed. COMPARISON: No relevant prior studies available. FINDINGS: Pulmonary arteries: No evidence for pulmonary embolism. Aorta: No acute findings. No thoracic aortic aneurysm. Lungs: Dependent subsegmental ground-glass changes in the posterior costophrenic margins of the lower lobes. No lobar consolidation. Pleural space: Unremarkable. No significant effusion. No pneumothorax. Heart: Unremarkable. No cardiomegaly. No significant pericardial effusion. Bones/joints: No acute fracture. No dislocation. Soft tissues: Unremarkable. Lymph nodes: Unremarkable. No enlarged lymph nodes. IMPRESSION: 1. No evidence for pulmonary embolism. 2. Dependent subsegmental ground-glass changes in the posterior costophrenic margins of the lower lobes are presumed dependent atelectasis. No lobar consolidation. No pleural effusion or pneumothorax. Electronically signed by: Dimitri Montejo MD 07/16/24 20:[address] 07/16/24 22:29 EXAM: CT head/brain wo con CLINICAL HISTORY: Phillips, htn crisis. TECHNIQUE: An axial non-contrast CT scan of the brain was performed from the skull base to the high parietal region. One of the following dose-reduction techniques was utilized for this exam. Automated exposure control, adjustment of the mA and/or kV according to patient size, and use of iterative reconstruction. CT scan performed according to ALARA principles. clp: 547.7 mGy-cm, ctdi: 38.10 mGy. COMPARISON: None. FINDINGS: Prominent and hyperdense dural reflections/tentorium However no definite hemorrhage is identified, Advised MRI with SWI images or follow-up if clinically warranted A few tiny ill-defined aea-pj-lpoiijtkt areas are noted bilaterally in the subcortical and deep white matter, suggesting microvascular ischemic changes. The ventricular system, cortical sulci, and basal cisterns are prominent and consistent with senile changes. The brain parenchyma shows a normal appearance. Garcias-white matter differentiation is maintained. No midline shifts or deformity. No intracerebral or extra axial hematoma. Normal CT appearance of the posterior fossa structures namely the cerebellar hemispheres, brainstem, and cerebellar peduncles. The bony structures in the skull base are unremarkable. There are no definite calvarium fractures. The scanned paranasal sinuses are clear. IMPRESSION: 1. Prominent and hyperdense dural reflections/tentorium However no definite hemorrhage is identified, Advised MRI with SWI images or follow-up if clinically warranted. 2. Microvascular white matter ischemic changes and senile changes. 3. No intra or extra-axial hematomas or parenchymal territorial hypodense areas suggest acute ischemic insult. 4. Early changes of stroke may not be detected on a CT scan. If there is strong clinical suspicion of stroke, then suggest MRI with diffusion-weighted imaging. Electronically signed by Suzanne Dueñas 07-17-2024 03:22 AM Diagnostic Findings EKG as per my interpretation :Rate 80, NSR, RAD, RVH, RBBB, negative ischemia Code Status & VTE Plan VTE Prophylaxis Plan VTE Prophylaxis will be ordered: Yes
[2024-07-17] MEDS: lisinopril 5 MG TAB PO STA (06:36)
[2024-07-17] MEDS: LEVOTHYROXINE SODIUM 25 MCG TABLET PO SCH (06:38)
[2024-07-17 07:03] LABS: Basophils # (auto) 0.08 K/uL (0.00-0.20); Basophils % (auto) 1.2 %; Eosinophils # (auto) 0.17 K/uL (0.00-0.50); Eosinophils % (auto) 2.6 %; Hematocrit (blood only) 38.7 % (37.0-47.0); Hemoglobin 12.4 g/dl (12.0-16.0); Immature Granulocytes # (auto) 0.01 K/uL (0.01-0.20); Immature Granulocytes % (auto) 0.2 %; Lymphocytes # (auto) 1.75 K/uL (1.20-3.40); Mean Corpuscular Volume 87.4 fL (80.0-100.0); Mean Platelet Volume 9.4 fL (9.4-12.4); Monocytes # (auto) 0.48 K/uL (0.11-0.59); Monocytes % (auto) 7.4 %; Neutrophils # (auto) 3.98 K/uL (1.40-6.50); Neutrophils % (auto) 61.6 %; Platelet Count 334 K/uL (130-400); RDW Coefficient of Variation 13.3 % (11.5-14.5); RDW Standard Deviation 42.6 fL (36.4-46.3); Red Blood Count 4.43 M/uL (4.20-5.40); White Blood Count 6.47 K/ul (4.8-10.8)
[2024-07-17 07:26] LABS: BUN Creatinine Ratio 18.1 (10-20); Calcium 9.1 mg/dl (8.6-10.3); Creatinine Clr Calc Pharmacy 50.7 ml/min; Potassium 4.3 mmol/L (3.5-5.1)
[2024-07-17] MEDS: OPTIRAY 320 125ml IV ONE (10:19)
[2024-07-17] MEDS: lisinopril 10 MG TAB PO ONE (10:52)
--- NOTE | 2024-07-17 11:28 | CT Scan Report ---
CT angio abdomen pelvis w con CLINICAL HISTORY: Mesenteric ischemia TECHNIQUE: Multidetector row helical CT of the abdomen and pelvis was performed, following intravenou s administration of iodinated contrast. No oral contrast was administered. Automated dose lowering te chniques and/or adjustment according to patient size were utilized for this exam. Coronal and sagitta l reformations were obtained. MIP and 3D volume rendered reconstructions were obtained. CT DOSE: 1100.94 mGy.cm Comparison: None available at the time of this dictation. FINDINGS: Lower chest: No acute abnormality Liver: Unremarkable. No focal lesions are seen. Gallbladder and biliary tree: Patient is status post cholecystectomy. Physiologic prominence of the b iliary ducts is noted. Pancreas: Unremarkable, no focal lesions. Spleen: Splenule is incidentally noted. Adrenals: Unremarkable. Kidneys and ureters: Nonobstructive nephrolithiasis is seen. Bladder: Unremarkable. Reproductive organs: Incidental note is made of calcified fibroid. Bowel: Diverticulosis is seen without diverticulitis. The appendix is normal. Lymph nodes Retroperitoneal: Unremarkable. Pelvic: Unremarkable. Mesenteric: Unremarkable. Peritoneum: Normal. Abdominal wall: Unremarkable. Bones: Degenerative changes in the visualized spine. Bilateral femoral prostheses are seen. CT angiogram: The abdominal aortic contours appear intact without evidence of aneurysmal dilatation a nd/or dissection. No significant atherosclerosis is seen. The origins of the celiac axis, superior mesenteric, inferior mesenteric and bilateral renal arteries are patent. IMPRESSION: 1. No acute abnormalities, in particular no abnormality of the superior and inferior mesenteric emperatriz patrick. No evidence of medial arcuate ligament syndrome. 2. Diverticulosis without diverticulitis. ACT 112: Negative or not required by law. Electronically signed by: Donald Presley M.D. 07/17/2024 11:25 AM
--- NOTE | 2024-07-17 12:04 | Cardiology Consultation ---
<Statement entered by Cate Pruett, - 07/17/24 20:55> I have reviewed the advanced practitioner's documentation and agree with the plan of care. I accept the responsibility for the associated risk. pt seen in cardiology consultation due to chest pain and recent abnormal exercise echo stress test with elevated BP her BP is still elevated recommend starting HCTZ in addtion to the lisinopril recommend nuclear stress test as an in patient I discussed the case and my recommendations with the hospitalist over the phone and he agreed with my plan I spent a total of [45] minutes coordinating, documenting, and providing care for this patient excluding time spent in the performance of separately billed services or time spent by another provider/QHP. Date of Consultation July 17, 2024 Assessment & Plan (1) CANTRELL (dyspnea on exertion): (2) Chest pain: (3) Equivocal stress echocardiogram: (4) Abnormal EKG: (5) Hypertension: Plan Patient admitted for HTN urgency, intermittent SOB, chest tightness. HS troponin negative x2 since admission. EKG with RBBB, LAFB, repolarization abnormalities. She was recently evaluated in [facility] and outpatient for similar symptoms and had an exercise stress echo. Exercise stress test was equivocal with poor exercise capacity, HTN BP response to exercise and possible mild hypokinesis in the distal anterior wall noted. However, due to HTN, it was thought this abnormality may be hypertensive in duced. Outpatient nuclear was ordered/recommended but not done. Patient was started on lisinopril and titrated to 10 mg daily. BP remains high. Add HCTZ 25 mg daily Monitor BMP/electrolytes Monitor BP. discussion today about further evaluation of her symptoms and prior equivocal stress echo. recommend nuclear Lexiscan stress test tomorrow. NPO after midnight. No caffeine the rest of today/tomorrow. Further recommendations pending review of lexiscan stress test and response to BP medication adjustments. Case discussed with Dr. Pruett I spent a total of 60 minutes on the date of service in preparation, delivery, and documentation of the care provided to this patient, excluding any time spent in the performance of separately billed services. Ginny Mcnally PA-C Department of Cardiology, [facility] This chart was completed in part utilizing Speech Voice Recognition Software. Grammatical errors, random word insertions, pronoun errors, and incomplete sentences are an occasional consequence of this system due to software limitations, ambient noise, and hardware issues. Any formal questions or concerns about the content, text, or information contained within the body of t his dictation should be directly addressed to the provider for clarification. History of Present Illness Reason for Consultation: Chest pain; Dyspnea Requesting Physician: Keegan Hospitalist Attending Physician: Dr. Pruett History of Present Illness Patient is a 78 year old female who presented with complaints of worsening SOB and chest pain and HTN. Hsitory includes: 1. Hypertension 2. Remote PE post surgery Recently evaluated at [facility] ER in Jun 2024 for similar symptoms. Found to be hypertensive with minimally elevated troponin in the 40's. EKG demonstrated Sinus tachycardia with possible LVH and repolarization abnormalities and LAD, RBBB. Chest xray was negative. D. Dimer was negative. BP and HR trended downward in ER without intervention and she was discharged to f/u with PCP and cardiology. She was ordered exercise stress echo by PCP. Stress echo was equivocal with possible wall motion abnormality (hypokinesis) in the distal anterior septum vs possible hypertensive induced. Patient also failed to reach target HR. She went to see cardio in f/u at [facility] and repeat nuclear stress test was recommended. This is scheduled for Aug. Due to worsening symptoms of SOB, CP, and hypertension - patient presented to [place] yesterday. Found to be significantly hypertensive. Started on lisinopril She had head CT with questionable abnormality. Brain MRI was without acute findings. HS troponin negative x2 since admission. At time of consult, patient resting in chair feeling ok. No recurrent chest pain or dyspnea since admission. BP trending downwards. Allergies Allergy/AdvReac Type Severity Reaction Status Date / Time cephalexin Allergy Intermediate RASH Verified 07/16/24 21:54 Home Medications Medication Instructions Recorded Confirmed Type aspirin 325 mg tablet 650 mg PO DAILY PRN Chest Pain 07/16/24 07/16/24 History Patient History Social History Smoking Status: Never smoker Hx Alcohol Use: No Hx Substance Use: No Preferred Language: Mongolian Communication Ability: Effective Mortgage Loan Officer Required: No Beliefs That Will Affect Care: None Feels Safe at Home: Yes Safety Concerns: Feels Safe At This Time Review of Systems Review of Systems: All systems reviewed & are unremarkable except as noted in HPI & below Physical Exam Constitutional: WD/WN, vitals as above well developed Neck: trachea midline, no thyromegaly Respiratory: normal respiratory effort; no labored breathing Auscultation: lungs clear to auscultation bilaterally Cardiovascular: Rate/Rhythm: regular rate and regular rhythm Vessels: no JVD Extremities: no edema Gastrointestinal (Abdomen): normal bowel sounds, soft, nontender, no hepatosplenomegaly Musculoskeletal: no cyanosis or clubbing, extremities motor strength 5/5 Neurologic: PERRL, EOMI, accommodation nl, no face palsy, no dysarthria Results & Data Vital Signs (Past 12 Hours) Vital Signs Temp Pulse Pulse Resp BP BP Pulse Ox 07/17/24 11:30 36.4 C L 70 18 156/78 H 96 07/17/24 08:57 36.6 C 69 18 162/75 H 96 07/17/24 08:06 65 16 131/76 95 07/17/24 07:27 57 L 07/17/24 06:41 65 18 147/78 H 98 07/17/24 05:03 36.6 C 66 18 194/103 H 98 07/17/24 05:00 70 16 194/103 H 96 07/17/24 04:00 70 169/99 H 97 07/17/24 03:00 56 L 16 151/89 H 99 07/17/24 02:19 69 16 171/97 H 98 07/17/24 02:19 67 18 171/97 H 98 07/17/24 02:00 62 16 179/89 H 99 07/17/24 01:04 58 L 16 180/94 H 98 07/17/24 00:00 63 16 162/92 H 97 O2 Del Method 07/17/24 11:30 Room Air 07/17/24 08:57 Room Air 07/17/24 08:06 Room Air 07/17/24 07:27 07/17/24 06:41 Room Air 07/17/24 05:03 Room Air 07/17/24 05:00 Room Air 07/17/24 04:00 Room Air 07/17/24 03:00 Room Air 07/17/24 02:19 Room Air 07/17/24 02:19 Room Air 07/17/24 02:00 Room Air 07/17/24 01:04 Room Air 07/17/24 00:00 Room Air Laboratory Results Cardiac Enzymes 07/16/24 07/16/24 Range/Units 17:06 22:53 AST 29 (13-39) U/L Troponin I High Sens 5.8 6.8 (0-14) pg/ml B-Natriuretic Peptide 38 (0-100) pg/ml Coagulation 07/16/24 Range/Units 17:06 B-Natriuretic Peptide 38 (0-100) pg/ml CBC 07/16/24 07/17/24 Range/Units 17:06 06:39 WBC 10.56 6.47 (4.8-10.8) K/ul RBC 5.06 4.43 (4.20-5.40) M/uL Hgb 14.2 12.4 (12.0-16.0) g/dl Hct 43.5 38.7 (37.0-47.0) % Plt Count 405 H 334 (130-400) K/uL Neut # (Auto) 6.39 3.98 (1.40-6.50) K/uL Lymph # (Auto) 3.30 1.75 (1.20-3.40) K/uL [place] # (Auto) 0.58 0.48 (0.11-0.59) K/uL Eos # (Auto) 0.15 0.17 (0.00-0.50) K/uL Baso # (Auto) 0.11 0.08 (0.00-0.20) K/uL Comprehensive Metabolic Panel 07/16/24 07/17/24 Range/Units 17:06 06:39 Sodium 137 141 (136-145) mmol/L Potassium 4.4 4.3 (3.5-5.1) mmol/L Chloride 102 109 H (98-107) mmol/L Carbon Dioxide 27 25 (21-32) mmol/L BUN 20 15 (6-23) mg/dl Creatinine 0.95 0.83 (0.6-1.2) mg/dl Glucose 99 88 (70-99(Fasting)) mg/dl Calcium 10.1 9.1 (8.6-10.3) mg/dl AST 29 (13-39) U/L ALT 26 (7-52) U/L Alkaline Phosphatase 67 (34-104) U/L Total Protein 8.0 (6.0-8.3) gm/dl Albumin 5.1 H (3.4-5.0) gm/dl Intake and Output 07/16/24 07/17/24 07/17/24 22:59 06:59 14:59 Intake Total 100 / 610.417 510.417 / 610.417 Balance 100 / 610.417 510.417 / 610.417 Intake: IV 100 / 610.417 510.417 / 610.417 Acetaminophen 1,000 mg In 100 100 / 100 ml @ 400 mls/hr IV NOW STA Rx#: [id number] Sodium Chloride 0.9% 1,000 ml @ 510.417 / 510.417 125 mls/hr IV .Q8H [facility] Rx#: [id number] Other: Weight 70.9 kg 70.9 kg Weight Measurement Method Chair Scale Built in [facility] Diagnostic Findings Telemetry reviewed: NSR in the 60's EKG reviewed from admission: NSR with RBBB, LAFB possible LVH Poor R wave progression compared with outpatient EKG's, no significant changes noted. Repeat EKG reviewed form 07/17/24: NSR wtih RBBB LAFB Poor R wave progression stable findings Chest X-Ray 07/16/24 16:53 Impression: Normal chest radiograph Electronically signed by Medhat Hughes 07-16-2024 5:15 PM Chest CTA 07/16/24 18:54 IMPRESSION: 1. No evidence for pulmonary embolism. 2. Dependent subsegmental ground-glass changes in the posterior costophrenic margins of the lower lobes are presumed dependent atelectasis. No lobar consolidation. No pleural effusion or pneumothorax. Head CT 07/16/24 22:29 IMPRESSION: 1. Prominent and hyperdense dural reflections/tentorium However no definite hemorrhage is identified, Advised MRI with SWI images or follow-up if clinically warranted. 2. Microvascular white matter ischemic changes and senile changes. 3. No intra or extra-axial hematomas or parenchymal territorial hypodense areas suggest acute ischemic insult. 4. Early changes of stroke may not be detected on a CT scan. If there is strong clinical suspicion of stroke, then suggest MRI with diffusion-weighted imaging. Abdomen/Pelvis CTA 07/17/24 09:48 IMPRESSION: 1. No acute abnormalities, in particular no abnormality of the superior and inferior mesenteric arteries. No evidence of medial arcuate ligament syndrome. 2. Diverticulosis without diverticulitis. ACT 112: Negative or not required by law. Outpatient data reviewed Exercise stress echo 1/3/25: Interpretation Summary There were slight wall motion abnormalities with exercise that could be more related to the elevated BP patient had with exercise rather than a true coronary artery significant blockage. Test is also limited for patient had a reduced exercise tolerance of only exercising for 3 minutes-this can further decrease the senstivity for ischemia. Max BP 164/102 but BP was just as elevated at rest. Would recommend better BP control and then a Dobutamine Stress echo or nuclear stress test if clinically warranted. Adequate stress test as 91 percent of their age predicted maximal target heart rate was obtained. No significant arrhythmias were noted. The stress test was terminated due to dyspnea. No symptoms were noted. Heart rate response to stress was normal. Blood pressure response to exercise was hypertensive. Resting Echocardiogram: With exercise, distal anterior septum appears mildly hypokinetic. This may be due to hypertensive blood pressure response. The qualitative LV ejection fraction is 55-59% (normal). There is isolated basal septal hypertrophy with maximal thickness of 1.4 cm. Non-dilated cardiac chambers No significant valvular pathology Medications Administered Current Inpatient Medications Sodium Chloride (Nss) 1,000 mls @ 50 mls/hr IV .Q20H ONE Stop: 07/17/24 17:51 Last Admin: 07/16/24 23:45 Dose: 50 mls/hr Promethazine HCl (Phenergan) 6.25 mg in 50.25 mls @ 201 mls/hr IV Q6H PRN PRN Reason: Nausea And Vomiting Stop: 08/16/24 03:40 Levothyroxine Sodium (Levothyroxine Sodium 25 Mcg Tablet) [facility] Stop: 08/16/24 06:29 Last Admin: 07/17/24 06:38 Dose: 25 mcg Lisinopril (Lisinopril 10 Mg Tab) 10 mg PO DAILY [facility] Stop: 08/17/24 08:59 Lorazepam (Lorazepam 0.5 Mg Tab) 0.5 mg PO TID PRN PRN Reason: Anxiety Stop: 08/16/24 03:40 Last Admin: 07/17/24 05:44 Dose: 0.5 mg Nitroglycerin (Nitroglycerin Sl 0.4 Mg/Tab Tab) 0.4 mg SL Q5M PRN PRN Reason: Chest Pain Stop: 08/16/24 01:58 Oxycodone HCl (Oxycodone Hcl Ir 5 Mg Tab (Immediate Release)) 5 mg PO Q4H PRN PRN Reason: Pain Stop: 07/31/24 03:40
--- NOTE | 2024-07-17 12:20 | Magnetic Resonance Report ---
MR brain wo con CLINICAL HISTORY: ward, abn ct TECHNIQUE: Multiplanar and multisequence MR images of the brain were obtained without intravenous con trast. Comparison: Comparison is made to CT head 07/16/2024 FINDINGS: No abnormal restricted diffusion is identified. Foci of T2 and FLAIR hyperintensity are noted in the paraventricular areas consistent with chronic small vessel ischemic disease. Ex vacuo ventriculomegal y and sulcal enlargement is noted compatible with diffuse volume loss. No mass is seen. There is no m ass effect or midline shift. There is no evidence of acute intraparenchymal hemorrhage. No extra axia l fluid collections are seen. The corpus callosum, pituitary gland, and cerebellar tonsils appear alina ssly unremarkable. Flow voids of the major intracranial arterial vessels are identified. The imaged portions of the para nasal sinuses, mastoid air cells, and orbits are unremarkable. IMPRESSION: No acute abnormality is seen in particular there is no evidence of subdural or epidural hemorrhage in this patient with concern for dural and tentorial thickening. ACT 112: Negative or not required by law. Electronically signed by: Donald Presley M.D. 07/17/2024 12:18 PM
--- NOTE | 2024-07-17 14:45 | Hospitalist Progress Note ---
Date of Service July 17, 2024 Assessment & Plan (1) Hypertensive crisis: Plan: Blood pressure is suboptimally controlled continue with lisinopril 10 mg daily, will add HCTZ 25 mg daily as well. Continue using hydralazine as needed. Will continue monitoring blood pressure and adjust as needed. (2) Chest pressure: Plan: Based on collective findings about this patient and considering her last stress test which was limited and not fully completed, cardiology recommended stress test to be done tomorrow. Will proceed. (3) Hypothyroidism (acquired): Plan: Continue with Synthroid 25 mcg daily. Plan Continue monitoring blood pressure and adjust treatment, proceed with nuclear stress test tomorrow, will likely discharge after the stress test if blood pressure remains normal and otherwise no further cardiac investigations needed. Admission and Anticipated Discharge Date Admission Date: July 17, 2024 Subjective Patient is a 78-year-old very pleasant female with history of hypertension and remote history of pulmonary embolism, she also is is known to have right bundle branch block and left anterior fascicular block, she came to the hospital because of several occasions of abdominal pain, most of them are apparently exertional and would go away with rest. At some point on some occasions of this pain, she reported pain to be radiating to the left upper extremity, she denies having any acid reflux disease. This episodes are very intense and sometimes sustained for several hours and eventually goes away, when I asked her what exactly make it go away, patient responded" rest". Her EKG was reviewed, spoke with cardiology who saw the patient, she had negative cardiac biomarkers rise, chest x-ray was negative. Her blood pressure continued to remain elevated while here Patient was seen and examined, she thinks part of her symptoms are due to stress. She denied having chest pain at that point. MRI of the brain was ordered by admitting physician which was negative, I ordered CTA of the abdomen with impression of possible abdominal angina which came back negative. Repeat EKG this morning reviewed by myself. She had a recent outpatient stress test which apparently was limited, stress test was terminated because of elevated blood pressure, ejection fraction last known was 55 to 60%. Physical Exam Physical Exam: VITALS: Reviewed. WEIGHT/BMI reviewed. GEN: Healthy appearing, well-developed, NAD. CV: RRR, no m/r/g. LUNGS: CTAB, no w/r/c. ABD: Soft, NT/ND, NBS, no masses or organomegaly. : N/A SKIN: Warm, well perfused. No skin rashes or abnormal lesions. MSK: No deformities, Normal gait. EXT: No clubbing, cyanosis, or edema. NEURO: Normal muscle strength and tone. No focal deficits. Results & Data Results & Data Vital Signs (Past 12 Hours) Vital Signs Temp Pulse Pulse Resp BP BP Pulse Ox 07/17/24 14:03 155/83 H 07/17/24 11:30 36.4 C L 70 18 156/78 H 96 07/17/24 08:57 36.6 C 69 18 162/75 H 96 07/17/24 08:06 65 16 131/76 95 07/17/24 07:27 57 L 07/17/24 06:41 65 18 147/78 H 98 07/17/24 05:03 36.6 C 66 18 194/103 H 98 07/17/24 05:00 70 16 194/103 H 96 07/17/24 04:00 70 169/99 H 97 07/17/24 03:00 56 L 16 151/89 H 99 O2 Del Method 07/17/24 14:03 07/17/24 11:30 Room Air 07/17/24 08:57 Room Air 07/17/24 08:06 Room Air 07/17/24 07:27 07/17/24 06:41 Room Air 07/17/24 05:03 Room Air 07/17/24 05:00 Room Air 07/17/24 04:00 Room Air 07/17/24 03:00 Room Air Laboratory Results Laboratory Results - last 24 hr 07/16/24 07/16/24 07/17/24 17:06 22:53 06:39 WBC 10.56 6.47 RBC 5.06 4.43 Hgb 14.2 12.4 Hct 43.5 38.7 MCV 86.0 87.4 MCH 28.1 28.0 MCHC 32.6 32.0 RDW Std Deviation 41.8 42.6 RDW Coeff of Laci 13.5 13.3 Plt Count 405 H 334 MPV 9.4 9.4 Immature Gran % (Auto) 0.3 0.2 Neut % (Auto) 60.5 61.6 Lymph % (Auto) 31.3 27.0 [place] % (Auto) 5.5 7.4 Eos % (Auto) 1.4 2.6 Baso % (Auto) 1.0 1.2 Neut # (Auto) 6.39 3.98 Lymph # (Auto) 3.30 1.75 [place] # (Auto) 0.58 0.48 Eos # (Auto) 0.15 0.17 Baso # (Auto) 0.11 0.08 Immature Gran # (Auto) 0.03 0.01 D-Dimer 340 Sodium 137 141 Potassium 4.4 4.3 Chloride 102 109 H Carbon Dioxide 27 25 Anion Gap 8 7 BUN 20 15 Creatinine 0.95 0.83 Est Cr Clr Drug Dosing 44.3 50.7 eGFR 60.95 71.67 BUN/Creatinine Ratio 21.1 H 18.1 Glucose 99 88 Calcium 10.1 9.1 Magnesium 2.3 Total Bilirubin 0.7 AST 29 ALT 26 Alkaline Phosphatase 67 Troponin I High Sens 5.8 6.8 B-Natriuretic Peptide 38 Total Protein 8.0 Albumin 5.1 H Globulin 2.9 Albumin/Globulin Ratio 1.8 Lipase 9 L Diagnostic Findings Chest X-Ray 07/16/24 16:53 Chest radiograph, one view History: Chest pain Comparison: 06/23/2017 Findings: Single AP view of the chest performed. No focal consolidation or pleural effusion. No pneumothorax. The cardiomediastinal silhouette is within normal limits. Normal pulmonary vascularity. No evidence for lymphadenopathy. No visualized bony or soft tissue abnormality. Impression: Normal chest radiograph Electronically signed by Medhat Hughes 07-16-2024 5:15 PM Chest CTA 07/16/24 18:54 Exam(s): CTA CHEST EXAM: CT Angiography Chest With Intravenous Contrast CLINICAL HISTORY: PE, sob, cp. TECHNIQUE: Axial computed tomographic angiography images of the chest with intravenous contrast. CTDI is 30.11 mGy and DLP is 573.75 mGy-cm. Automated exposure control was utilized for the study. A dose lowering technique was utilized adhering to the principles of ALARA. MIP reconstructed images were created and reviewed. COMPARISON: No relevant prior studies available. FINDINGS: Pulmonary arteries: No evidence for pulmonary embolism. Aorta: No acute findings. No thoracic aortic aneurysm. Lungs: Dependent subsegmental ground-glass changes in the posterior costophrenic margins of the lower lobes. No lobar consolidation. Pleural space: Unremarkable. No significant effusion. No pneumothorax. Heart: Unremarkable. No cardiomegaly. No significant pericardial effusion. Bones/joints: No acute fracture. No dislocation. Soft tissues: Unremarkable. Lymph nodes: Unremarkable. No enlarged lymph nodes. IMPRESSION: 1. No evidence for pulmonary embolism. 2. Dependent subsegmental ground-glass changes in the posterior costophrenic margins of the lower lobes are presumed dependent atelectasis. No lobar consolidation. No pleural effusion or pneumothorax. Electronically signed by: Dimitri Montejo MD 07/16/24 20:[address] 07/16/24 22:29 EXAM: CT head/brain wo con CLINICAL HISTORY: Ward, htn crisis. TECHNIQUE: An axial non-contrast CT scan of the brain was performed from the skull base to the high parietal region. One of the following dose-reduction techniques was utilized for this exam. Automated exposure control, adjustment of the mA and/or kV according to patient size, and use of iterative reconstruction. CT scan performed according to ALARA principles. clp: 547.7 mGy-cm, ctdi: 38.10 mGy. COMPARISON: None. FINDINGS: Prominent and hyperdense dural reflections/tentorium However no definite hemorrhage is identified, Advised MRI with SWI images or follow-up if clinically warranted A few tiny ill-defined [id number] areas are noted bilaterally in the subcortical and deep white matter, suggesting microvascular ischemic changes. The ventricular system, cortical sulci, and basal cisterns are prominent and consistent with senile changes. The brain parenchyma shows a normal appearance. Garcias-white matter differentiation is maintained. No midline shifts or deformity. No intracerebral or extra axial hematoma. Normal CT appearance of the posterior fossa structures namely the cerebellar hemispheres, brainstem, and cerebellar peduncles. The bony structures in the skull base are unremarkable. There are no definite calvarium fractures. The scanned paranasal sinuses are clear. IMPRESSION: 1. Prominent and hyperdense dural reflections/tentorium However no definite hemorrhage is identified, Advised MRI with SWI images or follow-up if clinically warranted. 2. Microvascular white matter ischemic changes and senile changes. 3. No intra or extra-axial hematomas or parenchymal territorial hypodense areas suggest acute ischemic insult. 4. Early changes of stroke may not be detected on a CT scan. If there is strong clinical suspicion of stroke, then suggest MRI with diffusion-weighted imaging. Electronically signed by Suzanne Dueñas 07-17-2024 03:22 AM Brain MRI 07/17/24 03:40 MR brain wo con CLINICAL HISTORY: ward, abn ct TECHNIQUE: Multiplanar and multisequence MR images of the brain were obtained without intravenous contrast. Comparison: Comparison is made to CT head 07/16/2024 FINDINGS: No abnormal restricted diffusion is identified. Foci of T2 and FLAIR hyperintensity are noted in the paraventricular areas consistent with chronic small vessel ischemic disease. Ex vacuo ventriculomegaly and sulcal enlargement is noted compatible with diffuse volume loss. No mass is seen. There is no mass effect or midline shift. There is no evidence of acute intraparenchymal hemorrhage. No extra axial fluid collections are seen. The corpus callosum, pituitary gland, and cerebellar tonsils appear grossly unremarkable. Flow voids of the major intracranial arterial vessels are identified. The imaged portions of the paranasal sinuses, mastoid air cells, and orbits are unremarkable. IMPRESSION: No acute abnormality is seen in particular there is no evidence of subdural or epidural hemorrhage in this patient with concern for dural and tentorial thickening. ACT 112: Negative or not required by law. Electronically signed by: Donald Presley M.D. 07/17/2024 12:18 PM Abdomen/Pelvis CTA 07/17/24 09:48 CT angio abdomen pelvis w con CLINICAL HISTORY: Mesenteric ischemia TECHNIQUE: Multidetector row helical CT of the abdomen and pelvis was performed, following intravenous administration of iodinated contrast. No oral contrast was administered. Automated dose lowering techniques and/or adjustment according to patient size were utilized for this exam. Coronal and sagittal reformations were obtained. MIP and 3D volume rendered reconstructions were obtained. CT DOSE: 1100.94 mGy.cm Comparison: None available at the time of this dictation. FINDINGS: Lower chest: No acute abnormality Liver: Unremarkable. No focal lesions are seen. Gallbladder and biliary tree: Patient is status post cholecystectomy. Physiolog ic prominence of the biliary ducts is noted. Pancreas: Unremarkable, no focal lesions. Spleen: Splenule is incidentally noted. Adrenals: Unremarkable. Kidneys and ureters: Nonobstructive nephrolithiasis is seen. Bladder: Unremarkable. Reproductive organs: Incidental note is made of calcified fibroid. Bowel: Diverticulosis is seen without diverticulitis. The appendix is normal. Lymph nodes Retroperitoneal: Unremarkable. Pelvic: Unremarkable. Mesenteric: Unremarkable. Peritoneum: Normal. Abdominal wall: Unremarkable. Bones: Degenerative changes in the visualized spine. Bilateral femoral prostheses are seen. CT angiogram: The abdominal aortic contours appear intact without evidence of aneurysmal dilatation and/or dissection. No significant atherosclerosis is seen. The origins of the celiac axis, superior mesenteric, inferior mesenteric and bilateral renal arteries are patent. IMPRESSION: 1. No acute abnormalities, in particular no abnormality of the superior and inferior mesenteric arteries. No evidence of medial arcuate ligament syndrome. 2. Diverticulosis without diverticulitis. ACT 112: Negative or not required by law. Electronically signed by: Donald Presley M.D. 07/17/2024 11:25 AM Medications Administered Current Inpatient Medications Sodium Chloride (Nss) 1,000 mls @ 50 mls/hr IV .Q20H ONE Stop: 07/17/24 17:51 Last Admin: 07/16/24 23:45 Dose: 50 mls/hr Promethazine HCl (Phenergan) 6.25 mg in 50.25 mls @ 201 mls/hr IV Q6H PRN PRN Reason: Nausea And Vomiting Stop: 08/16/24 03:40 Levothyroxine Sodium (Levothyroxine Sodium 25 Mcg Tablet) 25 mcg PO DAILYBB ABDIAS Stop: 08/16/24 06:29 Last Admin: 07/17/24 06:38 Dose: 25 mcg Lisinopril (Lisinopril 10 Mg Tab) 10 mg PO DAILY ABDIAS Stop: 08/17/24 08:59 Lorazepam (Lorazepam 0.5 Mg Tab) 0.5 mg PO TID PRN PRN Reason: Anxiety Stop: 08/16/24 03:40 Last Admin: 07/17/24 05:44 Dose: 0.5 mg Nitroglycerin (Nitroglycerin Sl 0.4 Mg/Tab Tab) 0.4 mg SL Q5M PRN PRN Reason: Chest Pain Stop: 08/16/24 01:58 Oxycodone HCl (Oxycodone Hcl Ir 5 Mg Tab (Immediate Release)) 5 mg PO Q4H PRN PRN Reason: Pain Stop: 07/31/24 03:40
[2024-07-17] MEDS: hydroCHLOROthiazide 25 MG TAB PO SCH (15:08)
[2024-07-17] MEDS ORDERED: lisinopril 5 MG TAB PO SCH (21:00)
--- NOTE | 2024-07-18 05:54 | Electrocardiogram Report ---
Test Reason : Blood Pressure : */* mmHG Vent. Rate : 79 BPM Atrial Rate : 79 BPM P-R Int : 180 ms QRS Dur : 104 ms QT Int : 426 ms P-R-T Axes : 11 138 40 degrees QTcB Int : 488 ms Normal sinus rhythm Right ventricular hypertrophy with repolarization abnormality Anterolateral infarct , age undetermined Prolonged QT Abnormal ECG When compared with ECG of 08-Mar-2017 20:50, Right bundle branch block is no longer Present Anterolateral infarct is now Present Confirmed by Florian Childress ([id number]) on 07/18/2024 5:53:22 AM Referred By: REFERRED SELF Confirmed By: Florian Childress
--- NOTE | 2024-07-18 05:54 | Electrocardiogram Report ---
Test Reason : Blood Pressure : */* mmHG Vent. Rate : 73 BPM Atrial Rate : 73 BPM P-R Int : 168 ms QRS Dur : 128 ms QT Int : 458 ms P-R-T Axes : 57 -79 51 degrees QTcB Int : 504 ms Normal sinus rhythm Right bundle branch block Left anterior fascicular block Bifascicular block Minimal voltage criteria for LVH, may be normal variant ( R in aVL ) Possible Lateral infarct (cited on or before 16-Jul-2024) Abnormal ECG When compared with ECG of 16-Jul-2024 16:57, (RBBB and left anterior fascicular block) is now Present Questionable change in initial forces of Anterior leads Confirmed by Florian Childress ([id number]) on 07/18/2024 5:54:13 AM Referred By: REFERRED SELF Confirmed By: Florian Childress
[2024-07-18] MEDS: lisinopril 10 MG TAB PO SCH (08:22)
--- NOTE | 2024-07-18 10:59 | Cardiology Progress Note ---
Date of Service July 18, 2024 Assessment & Plan (1) Chest pressure: (2) Abnormal EKG: (3) Hypertensive crisis: (4) Equivocal stress echocardiogram: Plan Patient notes progressive shortness of breath with exertion with onset during the summer months. She describes that she walks a few steps and feels a pressure sensation in her upper abdomen. She had a more severe episode of this when she was visiting a friend at [facility] last Thursday. In addition to the epigastric discomfort, she also had pressure in her chest. She had been seen in the emergency department at [facility] for similar symptoms in June,. At that time she was hypertensive with systolic blood pressure on presentation of 189 mmHg. High sensitive troponin was minimally elevated x 2 measurements. She had not been placed on antihypertensives. In the meantime she was seen in outpatient cardiology consultation and an exercise stress echocardiogram was performed which was felt to be equivocal with findings of reduced exercise tolerance, patient only able to ambulate for 3 minutes on a Golden protocol, hypertensive blood pressure response noted, and equivocal anteroseptal wall motion abnormality was noted. Patient presents this hospital stay once again with initial findings of severe high blood pressure, blood pressure in the emergency department 198/93 on 07/16/2024. High sensitive troponin levels negative x 2 as obtained on 07/16/2024. She has a history of chronic right bundle branch block noted on outpatient EKG dating back to 2017. Most recent tracings reflect chronic right bundle branch block with more prominent T wave inversions in lead V2, and poor R wave progression in the lateral leads consistent with an age undetermined lateral infarct pattern which is chronic. At the time of her recent stress echocardiogram the wall motion was noted to be normal at rest. Blood pressure has improved with the addition of hydrochlorothiazide and lisinopril. Question if the patient's symptoms are related to poorly controlled hypertension and diastolic dysfunction although underlying coronary heart disease is certainly a consideration. Initial plan was for the patient to proceed with a nuclear stress test, but the patient, family and I, all have significant concerns with regards to the nature of her symptoms with regards to being an anginal equivalent. After further discussion and through a process of shared decision making, recommend proceeding with invasive coronary angiography today and the patient is agreeable. Patient to remain NPO. Start aspirin, first dose prior to cardiac catheterization. Will review outpatient lipid panel results and address accordingly. Admission and Anticipated Discharge Date Admission Date: July 17, 2024 Subjective Patient seen in cardiology follow up. Daughters Gretchen and Yolanda at the bedside. Telemetry reveals sinus rhythm in the 70s. Patient with ongoing concerns of shortness of breath with exertion onset of symptoms during the summer months and worse recently . No acute symptoms this am. Review of Systems Review of Systems: All systems reviewed & are unremarkable except as noted in HPI & below Physical Exam Constitutional: WD/WN, vitals as above Cardiovascular: RRR, no murmur, no edema Gastrointestinal (Abdomen): normal bowel sounds, soft, nontender, no hepatosplenomegaly Neurologic: PERRL, EOMI, accommodation nl, no face palsy, no dysarthria Results & Data Vital Signs (Past 12 Hours) Vital Signs Temp Pulse Pulse Resp BP Pulse Ox O2 Del Method 07/18/24 07:38 57 L 07/18/24 07:09 36.4 C L 76 16 141/77 H 96 Room Air 07/18/24 02:30 36.6 C 63 18 109/73 96 Room Air 07/17/24 23:00 65 Laboratory Results Intake and Output 07/17/24 07/18/24 07/18/24 22:59 06:59 14:59 Intake Total 1173.333 / 2093.333 Balance 1173.333 / 2092.333 Intake: IV 933.333 / 933.333 Sodium Chloride 0.9% 1,000 ml @ 933.333 / 933.333 50 mls/hr IV .Q20H ONE Rx#: [id number] Oral 240 / 1160 Other: # Unmeasured Voids 1 1 Weight 70.7 kg Weight Measurement Method Built in [facility]
[2024-07-18 12:19] LABS: BUN Creatinine Ratio 22.2 (10-20); Calcium 10.3 mg/dl (8.6-10.3); Creatinine Clr Calc Pharmacy 46.6 ml/min
[2024-07-18] MEDS: ASPIRIN 81 MG CHEW PO ONE (12:22)
[2024-07-18] MEDS: ATORVASTATIN 10 MG TAB PO SCH (12:23)
--- NOTE | 2024-07-18 12:58 | Pre Anesthesia Assessment ---
Date of Service July 18, 2024 Pre Sedation Assessment Vital Signs Temp Pulse Pulse Resp BP Pulse Ox O2 Del Method 07/18/24 12:47 98.4 F 72 18 165/82 H 96 Room Air 07/18/24 11:51 97.5 F L 77 18 140/84 97 Room Air 07/18/24 07:38 57 L 07/18/24 07:09 97.5 F L 76 16 141/77 H 96 Room Air 07/18/24 02:30 97.9 F 63 18 109/73 96 Room Air 07/17/24 23:00 65 07/17/24 22:42 97.9 F 63 18 102/60 95 Room Air 07/17/24 22:25 Room Air 07/17/24 19:19 97.9 F 73 16 144/86 H 97 Room Air 07/17/24 17:23 67 07/17/24 14:22 97.9 F 72 18 156/75 H 95 Room Air 07/17/24 14:03 155/83 H Cardiovascular + regular rate Respiratory + respiratory effort normal Pre-Sedation Airway Assessment Smoking Status: Never smoker Hx Sleep Apnea: No Hx Difficult Intubation: No Short, Thick Neck: No Thyromental Distance: < 3.5 Finger Breadths Oral Cavity: + Dentures Mallampati Class: III ASA: ASA3 NPO Status Date of Last Intake of Fluids: 07/17/24 Date of Last Intake of Solid Food: 07/17/24 Procedure Planning Contraindications for Sedation: none Current Medications Reviewed: Yes Notes The planned sedation has been discussed with the patient. Informed Consent was obtained. I have identified the patient, determined the appropriateness of sedation and have assessed the patient immediately prior to the procedure. All medicine(s) and interventions are by my order.
[2024-07-18] MEDS: NITROGLYCERIN/D5W 100MCG/ML 20ML SYR ONE (13:21)
[2024-07-18] MEDS: niCARdipine 2,000 MCG/20 ML SYR ONE (13:21)
[2024-07-18] MEDS: fentaNYL citrate PF 100 MCG/2 ML VIAL ONE (13:53)
[2024-07-18] MEDS: OPTIRAY 350 ONE (13:54)
[2024-07-18] MEDS: MIDAZOLAM HCL 1 MG/ML 2ML VIAL ONE (13:54)
[2024-07-18] MEDS: HEPARIN (PORCINE) 1000 UNIT/ML 10 ML (CATH LAB USE ONLY) ONE (13:54)
--- NOTE | 2024-07-18 14:03 | Post Anesthesia Assessment ---
Date of Service July 18, 2024 Post Sedation Assessment Vital Signs Temp Pulse Pulse Resp BP Pulse Ox O2 Del Method 07/18/24 12:47 98.4 F 72 18 165/82 H 96 Room Air 07/18/24 11:51 97.5 F L 77 18 140/84 97 Room Air 07/18/24 07:38 57 L 07/18/24 07:09 97.5 F L 76 16 141/77 H 96 Room Air 07/18/24 02:30 97.9 F 63 18 109/73 96 Room Air 07/17/24 23:00 65 07/17/24 22:42 97.9 F 63 18 102/60 95 Room Air 07/17/24 22:25 Room Air 07/17/24 19:19 97.9 F 73 16 144/86 H 97 Room Air 07/17/24 17:23 67 07/17/24 14:22 97.9 F 72 18 156/75 H 95 Room Air 07/17/24 14:03 155/83 H Recovery Score Activity: Moves 4 extremities Respiration: Deep Breath/Cough Circulation: +/-20% PreAnes Value Consciousness: Fully Awake Oxygen Saturation: O2 needed for >90% Discharge Sedation Level of Care: Fast Track Phase II Post Sedation Plan On clinical assessment, the patient appears to have tolerated the sedation without complications. Patient is recovering as anticipated. Patient will continue to be monitored by nursing and may be discharged when sedation discharge criteria are met per below protocol. Upon Completions of procedure up to 15 minutes continue every 5 minute vital signs and the P.A.R. score; then discharge to a Phase I or Fast Track to Phase II per the following guidelines: * Discharge Patient to appropriate Phase II area if PAR is 8 or greater or return to pre- procedure baseline. The post - procedure orders will be as directed. * If PAR score is less than 8 or not return to pre-procedure baseline then pa tient will follow Phase I monitoring till PAR is reached for Phase II. The Phase I may be done in procedure room or may call to secure a Phase I area. * If naloxone or flumazenil are used for reversal, hold in Phase I for continued monitoring from when last reversal dose was given for a minimum of 60 minutes or longer pending the nurse and/or physician discretion of patient condition before discharge to Phase II. Please call the Sedation Physician to re-evaluate and complete post-note for discharge to Phase II area. Do NOT discharge from procedure sedation or Phase 1 until post- sedation evaluation note is complete by procedure /sedation MD Sedation Discharge Instructions to be given to the patient at discharge to home.
--- NOTE | 2024-07-18 14:08 | Cardiac Catheterization ---
[facility] Data: [employer] Cardiac Status Clinical evaluation leading to the procedure CAD Presenation: Positive Stress Test and Unstable angina Diagnostic Physicians Name: Medhat Mcguire MD Closure Device Recommendations: Medical Therapy and/or Counseling Cardiac Cath Procedure Full Procedure Date July 18, 2024 Pre-Procedure Diagnosis Pre-Procedure Diagnosis: Angina and Positive Stress Test AUC Score AUC Score: 7 Post-Procedure Diagnosis Post-Procedure Diagnosis: Mild CAD and Normal Intracardiac Pressures Procedure(s) Performed Procedure(s) Performed: Coronary Angiography and Left Heart Cath Android [employer] Medhat Mcguire MD Staff Radiologist(s) Kassandra Estimated Blood Loss Estimated Blood Loss: 10 Medication(s) Medication(s): Fentanyl, Heparin, Lidocaine 1%, Nicardipine, Nitroglycerin and Versed Summary of Findings Indication: Concern for accelerating angina, indeterminate stress test Access: 6 Fr slender right radial artery Catheters: [place] Findings: LM -normal caliber, no significant disease LAD -large caliber, 20% ostial, proximal to mid segment ectatic, late mid/distal vessel without significant disease and wraps around apex. Large D2 without disease. Circumflex -medium caliber, angulated takeoff, AV groove circumflex without significant disease. Bifurcating OM 2 without disease. RCA -dominant, large caliber, luminal irregularities. Tortuous RPDA, PLB without significant disease. LVEDP -10 Arterial Closure: TR band Summary: 1. Minimal nonobstructive coronary artery disease -20% ostial LAD 2. Normal intracardiac filling pressure Recommendations: No acute or high risk CAD to explain patient's recent symptoms. Continued blood pressure management per Dr. Zhong. Hemodynamics Rest Ao:: 122/66/92 Final Ao: 128/66/93 LV: 128/10 Recommendations Recommendations: Medical Therapy and/or Counseling Specimens Specimens: None Radiation Exposure (mGy) 618 Contrast (mls) 50 Anesthesia Moderate [id number] Procedural Complication(s) None Disposition Logging [employer] Holding/Recovery I attest to the content of the Intraoperative Record and any orders documented therein. Any exceptions are noted below. [facility] Card Cath Procedure Codes Cardiac Catheterization Procedure 1: Cardiovascular Cath Procedures: 05176 Coronaries and LHC (+/-LV) Moderate Sedation Procedure 1: Sedation/Anesthesia: 15887 Mod Sedation by the same physician;Init15 Min Child Age 5 & Up PG Care Time/CCT Total # of Minutes Spent Total Time Spent with Patient: Total time spent is greater than 50% in coordination of care (as documented) at patient's floor/unit and/or counseling patient:
--- NOTE | 2024-07-18 15:02 | Communication Note ---
Date of Service: July 18, 2024 Cardiac catheterization films reviewed independently, 20% proximal LAD stenosis. Left ventricular end-diastolic pressure normal at 10 mmHg. Question of presenting symptoms due to diastolic dysfunction and previously uncontrolled hypertension. Recommendations: Patient noted to be stable for discharge after completes postcatheterization recovery protocol with medications to include lisinopril 10 mg daily, hydrochlorothiazide 25 mg daily. Given catheterization findings will discharge patient on aspirin 81 mg daily and atorvastatin 10 mg daily.
--- NOTE | 2024-07-18 15:20 | Discharge Summary ---
Discharge Summary Date of Service July 18, 2024 Principal Dx & Hospital Course #1 = Principal Diagnosis (1) Hypertensive crisis: (2) Chest pressure: (3) Hypothyroidism (acquired): Notes For Next Care Provider Medication Changes From Visit Aspirin 81 mg daily Lisinopril 10 mg daily Lipitor 10 mg daily HCTZ 25 mg daily Admission HPI Per Admitting Provider Patient is a 78-year-old very pleasant female with history of hypertension and remote history of pulmonary embolism, she also is is known to have right bundle branch block and left anterior fascicular block, she came to the hospital because of several occasions of abdominal pain, most of them are apparently exertional and would go away with rest. At some point on some occasions of this pain, she reported pain to be radiating to the left upper extremity, she denies having any acid reflux disease. This episodes are very intense and sometimes sustained for several hours and eventually goes away, when I asked her what exactly make it go away, patient responded" rest". Her EKG was reviewed, spoke with cardiology who saw the patient, she had negative cardiac biomarkers rise, chest x-ray was negative. Her blood pressure continued to remain elevated while here, we used lisinopril and somewhat controlled blood pressure, patient was seen by cardiology and ischemic workup was recommended, today patient went for cardiac catheterization during which she was found to have minimal nonocclusive coronary disease, cardiology recommended combination of aspirin, Lipitor, HCTZ and lisinopril to be started and continued. I attended patient's room after the cardiac catheterization spoke with patient and her daughters in the room. During this visit after we spoke about her prior history of spells of high blood pressure, I recommended a 24-hour urine to be checked for fractionated metanephrines and fractionated catecholamines and 5 HIAA, urine collection was started on the morning of 07/18/2024, direction was given how to continue collecting urine until next day in the morning, patient then will be educated by nursing staff on how to bring her sample to the hospital to process. The results should be passed to the patient and or her PCP for further review. Patient will remain after the procedure for few hours of monitoring and then at the end can be discharged home. Updated Medication List Medication Instructions Recorded Confirmed Type aspirin 81 mg tablet,delayed 81 mg PO QAM 30 days #30 tabs 07/18/24 Rx release atorvastatin 10 mg tablet 10 mg PO QAM 30 days #30 tabs 07/18/24 Rx hydrochlorothiazide 25 mg tablet 25 mg PO QAM 30 days #30 tabs 07/18/24 Rx levothyroxine 25 mcg tablet 25 mcg PO DAILYBB #30 tabs 07/18/24 Rx (Synthroid) lisinopril 10 mg tablet 10 mg PO DAILY 30 days #30 tabs 07/18/24 Rx Hospital Stay Data Consultations 07/16/24 21:50 ED Decision to Admit Stat 07/17/24 04:35 Consult Cardiology Routine Procedures Performed Operation Date: 07/18/24 13:00 Actual Procedures p Cineradiography w/Routine Exam - Medhat Mcguire MD p Cath, Left with Cors and Vent - Medhat Mcguire MD Diagnostic Imagining Performed 07/16/24 18:54 CT angio chest PE protocol Stat 07/16/24 22:29 CT head/brain wo con Stat 07/17/24 03:40 MRI Brain [MR brain wo con] Routine 07/17/24 09:48 CTA abdomen pelvis w con [CT angio abdomen pelvis w con] Urgent 07/18/24 13:15 CL Cath Imgs for PACS use only Stat Pending Results Patient Have Any Pending Studies at Discharge: Yes Discharge Instructions Given to Patient (Per Discharging Provider) Follow-up with the result of urine studies that has been ordered Total Time Total Time Spent Total Time Spent (In Minutes): More than 35 minutes
[2024-07-19] MEDS ORDERED: ASPIRIN 81 MG ECTAB PO SCH (09:00)
== END 2024-07-18 18:00 | disposition home or self-care (01) ==
LOC: EDINP 16:47 → ED 16:47 → 2S 07-17 04:35